=== PATIENT | male | born 1930 | race Caucasian/White ===

== ENCOUNTER 2017-04-09 16:18 | Inpatient (IN) | payer OTHER ==
[2017-04-09] MEDS ORDERED: SODIUM CHLORIDE 1,000 ML IV SCH (16:30)
--- NOTE | 2017-04-09 16:37 | PDOC ---
History of Present Illness - General Stated Complaint: POSS STROKE Time Seen by Provider: 04/09/17 16:21 History Source: Patient, EMS - History of Present Illness Initial Comments: 04/09/17 16:35 86 y.o. male with a PMH of HLD, NIDDM, TIA and CVA who was BIBA following acute onset of slurred speech and L sided facial droop. As per patient's daughter last known normal @ 10:00; patient's family noticed neurologic deficits @ 1300 and noted increased slurring of speech (@ baseline patient has slurred speech). BS 80's en route, patient administered 15 gm glucose PO by EMS. Patient endorses increased slurring of speech, but denies any AMS, chest pain, shortness of breath. Past History - Past Medical History Allergies/Adverse Reactions: Allergies Allergy/AdvReac Type Severity Reaction Status Date / Time No Known Allergies Allergy Verified 04/09/17 16:50 Home Medications: Ambulatory Orders Metformin HCl [Glucophage -] 500 mg PO DAILY 01/02/15 Atorvastatin Ca [Lipitor] 10 mg PO HS #30 tablet 01/03/15 Cyanocobalamin [Vitamin B12 -] 1,000 mcg PO DAILY #30 tablet 01/03/15 Unobtainable 04/09/17 Diabetes: Yes HTN: Yes - Suicide/Smoking/Psychosocial Hx Smoking History: Never smoked Have you smoked in the past 12 months: No Hx Alcohol Use: No Drug/Substance Use Hx: No Substance Use Type: None Hx Substance Use Treatment: No Review of Systems - Review of Systems Able to Perform ROS?: No *Physical Exam - Physical Exam General Appearance: Yes: Nourished HEENT: positive: EOMI, VIOLA Neck: positive: Supple Respiratory/Chest: positive: Lungs Clear, Normal Breath Sounds Cardiovascular: positive: S1, S2 Extremity: positive: Normal Capillary Refill, Normal Inspection Integumentary: positive: Normal Color, Dry, Warm Neurologic: positive: Fully Oriented, Alert, Facial Droop (L sided facial droop) ED Treatment Course - LABORATORY CBC & Chemistry Diagram: 04/09/17 16:46 04/10/17 00:45 - RADIOLOGY Radiology Studies Ordered: Category Date Time Status HEAD CT (STROKE) [CT] Stat CT Scan 04/09/17 16:21 Taken Medical Decision Making - Medical Decision Making 04/09/17 16:37 86 y.o. male with a PMH of HLD, NIDDM, CVA (residual L sided facial droop, slurred speech) presents to ED for increased slurring of speech. ED Stroke protocol ordered, no Code Guerrero as > 6 hours between last known normal and ED arrival. Head CT obtained to r/o acute ischemic process is negative. At presentation BS 67 --> 1 amp D50. Slurred speech improved with glucose. Na+ 157, slow correction with Dextrose and close Na monitoring. Likely etiology of patient's SiSx hypoglycemia and metabolic derangement vs. infectious. Case d/w Dr. Chowdhury (neurologist acute care nurse practitioner) - agrees with admission for further work-up given patient's RF for ischemic event. Patient signed out to Dr. Jus Gonzalez ( Resident) and Dr. Fraire (Attending) - likely disposition admission to inpatient medicine service. *DC/Admit/Observation/Transfer Diagnosis at time of Disposition: Hypernatremia - Referrals - Patient Instructions - Post Discharge Activity
[2017-04-09] MEDS ORDERED: DEXTROSE 50%-WATER 25 GM/50 ML DISP.SYRIN ONE (16:44)
[2017-04-09 16:58] LABS: BASO % 0.2 % (0-2.0); EOS % 3.3 % (0-4.5); HEMATOCRIT 34.3 % (35.4-49); HEMOGLOBIN 11.1 GM/dL (11.7-16.9); LYMPH % 14.6 % (8-40); MCH 32.5 pg (25.7-33.7); MCHC 32.3 g/dl (32.0-35.9); MEAN CELL VOLUME 100.7 fl (80-96); MEAN PLT VOLUME 12.5 fl (7.5-11.1); MONO % 4.9 % (3.8-10.2); PLATELET COUNT 131 K/MM3 (134-434); RDW 18.6 % (11.9-15.9); WHITE BLOOD COUNT 5.7 K/mm3 (4.0-10.0)
[2017-04-09 17:12] LABS: INR 1.06 (0.82-1.09)
--- NOTE | 2017-04-09 17:37 | PDOC ---
Attending Attestation - HPI HPI: 04/09/17 18:31 The patient is a 86 year old male with a significant PMH of hypertension, diabetes, and stroke with residual left facial droop who presents to the emergency department with speech slurring that began today. As per the daughter , the patient's has slow speech at baseline. The patient's last known well was 10AM today. The patient's daughter states she went to check up on the patient at approximately 1PM and noted the slurred speech at that time. Code Guerrero was not activated. The patient denies chest pain, shortness of breath, headache and dizziness. Denies fever, chills, nausea, vomit, diarrhea and constipation. Denies dysuria, frequency, urgency and hematuria. Allergies: NKA Past surgical history: None reported. Social history: No reported alcohol, drug, or cigarette. <Mulu Bryant - Last Filed: 04/09/17 18:31> - Resident Resident Name: Penelope Garcia - ED Attending Attestation I have performed the following: I have examined & evaluated the patient, The case was reviewed & discussed with the resident, I agree w/resident's findings & plan, Exceptions are as noted - Physicial Exam PE: 04/09/17 17:38 GENERAL: Awake, alert, in no acute distress. HEAD: No signs of trauma EYES: PERRLA, EOMI, sclera anicteric, conjunctiva clear ENT: Auricles normal inspection, hearing grossly normal, nares patent, NECK: Normal ROM, supple, LUNGS: Breath sounds equal, clear to auscultation bilaterally. No wheezes, and no crackles HEART: Regular rate and rhythm, normal S1 and S2, no murmurs, rubs or gallops ABDOMEN: Soft, nontender, normoactive bowel sounds. No guarding, no rebound. No masses EXTREMITIES: Normal range of motion, no edema. No clubbing or cyanosis. No cords, erythema, or tenderness NEUROLOGICAL: Cranial nerves II through XII intact, except chronic left facial droop (from previous stroke), 5/5 strength upper and lower extremities. Sensation intact throughout. No pronator drift. +slurring of speech. SKIN: Warm, Dry, normal turgor, no rashes or lesions noted. - Medical Decision Making 04/09/17 17:40 A portion of this note was written by my scribe, under my supervision. Vital Signs Temp Pulse Resp BP Pulse Ox 75 17 113/48 100 04/09/17 16:20 04/09/17 16:20 04/09/17 16:20 04/09/17 16:20 86 male with history of hypertension, diabetes, stroke with residual left facial droop presents to the emergency department for slurring of speech. According to the patient's daughter, the patient's baseline his slow speech. He was singing this morning. Last known well was 10 AM. Patient's daughter went to check up on the patient at around 1:15 PM, noted that he was slurring his speech more so came into the ED. Patient arrived at approximately 4 PM. Given that this was 6 hours after the initial event, Code Guerrero was not activated. However patient was sent to head CT. Head CT is negative. Patient's glucose was noted to be 67 and an amp of D50 was given. Patient's daughter at the bedside. Patient's slurry speech seemed to improve drastically with the glucose. This may potentially be hypoglycemia as the cause. We'll need to investigate for infectious or metabolic disease. Case was discussed with neurologist by Dr. Garcia. Agrees with plan to workup for potential stroke given the risk factors. 04/09/17 18:17 CBC, BMP 04/09/17 16:46 04/09/17 16:46 CMP Sodium 156 mmol/L (136-145) H 04/09/17 16:46 Potassium 4.5 mmol/L (3.5-5.1) 04/09/17 16:46 Chloride 123 mmol/L (98-107) H D 04/09/17 16:46 Carbon Dioxide 23 mmol/L (21-32) 04/09/17 16:46 Anion Gap 10 (8-16) 04/09/17 16:46 BUN 51 mg/dL (7-18) H D 04/09/17 16:46 Creatinine 3.5 mg/dL (0.7-1.3) H D 04/09/17 16:46 Creat Clearance w eGFR 16.69 (>60) 04/09/17 16:46 POC Glucometer 67.23672 UNITS (80-120) 04/09/17 16:39 Random Glucose 106 mg/dL (74-106) D 04/09/17 16:46 Calcium 8.0 mg/dL (8.5-10.1) L 04/09/17 16:46 Total Bilirubin 0.4 mg/dL (0.2-1.0) D 04/09/17 16:46 AST 43 U/L (15-37) H 04/09/17 16:46 ALT 27 U/L (12-78) 04/09/17 16:46 Alkaline Phosphatase 229 U/L (45-117) H D 04/09/17 16:46 Creatine Kinase 115 IU/L (39-308) 04/09/17 16:46 Troponin I < 0.02 ng/ml (0.00-0.05) D 04/09/17 16:46 Total Protein 7.2 g/dl (6.4-8.2) 04/09/17 16:46 Albumin 3.1 g/dl (3.4-5.0) L 04/09/17 16:46 Triglycerides 104 mg/dL (35-160) 04/09/17 16:46 Cholesterol 176 mg/dL (50-200) 04/09/17 16:46 Total LDL Cholesterol 108 mg/dL (5-100) H 04/09/17 16:46 HDL Cholesterol 49 mg/dL (40-60) D 04/09/17 16:46 Pt noted with acute renal failure and hypernatremia. 04/09/17 19:15 Pt attempted to get out of bed and fell (unwitnessed) Will need to obtain a repeat head CT. <Jose Luis Philippe - Last Filed: 04/09/17 19:15> Heart Score/ECG Review #1 ECG reviewed & interpreted by me at: 17:00 04/09/17 17:38 NSR 78, LVH, TWI II, III, avF, V4-V6, no std/priya, QTC 528 msec <Jose Luis Philippe - Last Filed: 04/09/17 19:15> NIH Stroke Scale - Last Known Well Date/Time & Onset Date Last Known Well: 04/09/17 Time Last Known Well: 10:00 - Initial Evaluation Level of consciousness: Alert Ask patient the month and their age: Both incorrect Ask patient to open & close eyes; make fist and let go: Obeys both correctly Best gaze (horizontal eye movement): Normal Visual field testing: No visual field loss Facial paresis (Show teeth/raise eyebrows/close eyes tight): Normal symmetrical movement Motor Function: Left Arm: Normal Motor Function: Right Arm: Normal (extends arm 90 (or 45) degrees for 10 seconds without drift Motor Function: Left Leg: Normal (extends leg 30 degrees for 5 seconds without drift) Motor Function: Right Leg: Normal (extends leg 30 degrees for 5 seconds without drift) Limb Ataxia: No ataxia Sensory(Use pinprick test arms,legs,trunk,face/side to side): Normal Best language (Describe picture, name items, read sentences): No Aphasia Dysarthria (read several words): Mild to moderate slurring of words Extinction and Inattention: No abnormality - Total Score NIH Stroke Scale Score: 3 <Jose Luis Philippe - Last Filed: 04/09/17 19:15>
[2017-04-09 18:07] LABS: ALBUMIN 3.1 g/dl (3.4-5.0); ANION GAP 10 (8-16); BILIRUBIN,TOTAL 0.4 mg/dL (0.2-1.0); BLOOD UREA NITROGEN 51 mg/dL (7-18); CHLORIDE 123 mmol/L (98-107); CO2 23 mmol/L (21-32); CREATININE 3.5 mg/dL (0.7-1.3); GLUCOSE,RANDOM 106 mg/dL (74-106); LDL CHOLESTEROL (ONLY SJRH) 108 mg/dL (5-100); POTASSIUM 4.5 mmol/L (3.5-5.1); SGOT/AST 43 U/L (15-37); SGPT/ALT 27 U/L (12-78); SODIUM 156 mmol/L (136-145); TOT PROT 7.2 g/dl (6.4-8.2); TRIGLYCERIDES 104 mg/dL (35-160)
[2017-04-09 18:11] LABS: ALK PHOS 229 U/L (45-117); CHOLESTEROL 176 mg/dL (50-200); HDL CHOLESTEROL 49 mg/dL (40-60)
[2017-04-09] MEDS ORDERED: DEXTROSE 5%-WATER - 1,000 ML IV SCH ×2 (18:45→19:00)
[2017-04-09 19:55] LABS: URINE APPEARANCE CLEAR; URINE BILIRUBIN NEGATIVE (NEGATIVE); URINE BLOOD NEGATIVE (NEGATIVE); URINE COLOR LTYELLOW; URINE GLUCOSE (UA) NEGATIVE (NEGATIVE); URINE KETONE NEGATIVE (NEGATIVE); URINE LEUK ESTERASE NEGATIVE (NEGATIVE); URINE NITRITE NEGATIVE (NEGATIVE); URINE PROTEIN NEGATIVE (NEGATIVE); URINE UROBILINOGEN NEGATIVE mg/dL (0.2-1.0)
--- NOTE | 2017-04-09 23:25 | HP ---
CHIEF COMPLAINT: AMS. Family noted facial droop PCP: Yessi HISTORY OF PRESENT ILLNESS: Pt is an 86 y/o M with PMH NIDDM, TIA with multiple hospital visits for possible stroke who presented to ED BIBA accompanied by family because fam noticed facial droop and slurred speech. Per records, last normal was 10am, fam noticed droop at 16:00. Pt is awake alert and oriented only to name. Per nurse, family gave conflicting reports regarding pt's baseline mental status. Pt cannot give history. In ED pt having numerous episodes of diarrhea. Note pt had a fall and had repeat head CT neg ER course was notable for: (1) Hb 11, plt 131, Na 156, BUN 51, Solutions Consultant 3.5 (2)Head CT neg (3) Recent Travel: denies PAST MEDICAL HISTORY: NIDDM, HLD, TIA PAST SURGICAL HISTORY: Social History: Smoking: neg Alcohol: neg Drugs: neg Family History: Allergies No Known Allergies Allergy (Verified 04/09/17 16:50) HOME MEDICATIONS: Home Medications Medication Instructions Recorded Metformin HCl [Glucophage -] 500 mg PO DAILY 01/02/15 Atorvastatin Ca [Lipitor] 10 mg PO HS #30 tablet 01/03/15 Cyanocobalamin [Vitamin B12 -] 1,000 mcg PO DAILY #30 tablet 01/03/15 Unobtainable 04/09/17 REVIEW OF SYSTEMS unable to obtain PHYSICAL EXAMINATION Vital Signs - 24 hr 04/09/17 04/09/17 04/09/17 16:20 19:21 19:36 Temperature 94.7 F L Pulse Rate 75 Respiratory 17 18 Rate Blood Pressure 113/48 Blood Pressure 145/71 [Right Arm] O2 Sat by Pulse 100 Oximetry (%) Limited exam. Pt uncooperative. GENERAL: Awake, alert, and oriented to person, in no acute distress. HEAD: Normal with no signs of trauma. EYES: Pupils equal, round and reactive to light, extraocular movements intact, sclera anicteric, conjunctiva clear. No lid lag. EARS, NOSE, THROAT: oropharynx clear without exudates. Moist mucous membranes. NECK: Normal range of motion, supple without lymphadenopathy, JVD, or masses. LUNGS: Breath sounds equal, clear to auscultation bilaterally. No wheezes, and no crackles. No accessory muscle use. HEART: Regular rate and rhythm, normal S1 and S2 without murmur, rub or gallop. ABDOMEN: Soft, nontender, not distended, normoactive bowel sounds, no guarding, no rebound, no masses. No hepatomegaly or splenomegaly. MUSCULOSKELETAL: Normal range of motion at all joints. No bony deformities or tenderness. No CVA tenderness. UPPER EXTREMITIES: 2+ pulses, warm, well-perfused. No cyanosis. No clubbing. No peripheral edema. LOWER EXTREMITIES: 1+ pulses b/l, warm, well-perfused. No calf tenderness. No peripheral edema. NEUROLOGICAL: unable to assess PSYCHIATRIC: unable to assess SKIN: Warm, dry, normal turgor, no rashes or lesions noted, normal capillary refill. Laboratory Results - last 24 hr 04/09/17 04/09/17 04/09/17 16:39 16:46 16:46 WBC 5.7 RBC 3.40 L Hgb 11.1 L Hct 34.3 L MCV 100.7 H MCH 32.5 D MCHC 32.3 RDW 18.6 H D Plt Count 131 L D MPV 12.5 H D Neutrophils % 77.0 D Lymphocytes % 14.6 D Monocytes % 4.9 Eosinophils % 3.3 Basophils % 0.2 PT with INR 12.00 H INR 1.06 Sodium Potassium Chloride Carbon Dioxide Anion Gap BUN Creatinine Creat Clearance w eGFR POC Glucometer 67.62812 Random Glucose Calcium Total Bilirubin AST ALT Alkaline Phosphatase Creatine Kinase Troponin I Total Protein Albumin Triglycerides Cholesterol Total LDL Cholesterol HDL Cholesterol Urine Color Urine Appearance Urine pH Ur Specific [place] Urine Protein Urine Glucose (UA) Urine Ketones Urine Blood Urine Nitrite Urine Bilirubin Urine Urobilinogen Ur Leukocyte Esterase Blood Type Antibody Screen 04/09/17 04/09/17 04/09/17 16:46 16:46 19:30 WBC RBC Hgb Hct MCV MCH MCHC RDW Plt Count MPV Neutrophils % Lymphocytes % Monocytes % Eosinophils % Basophils % PT with INR INR Sodium 156 H Potassium 4.5 Chloride 123 H D Carbon Dioxide 23 Anion Gap 10 BUN 51 H D Creatinine 3.5 H D Creat Clearance w eGFR 16.69 POC Glucometer Random Glucose 106 D Calcium 8.0 L Total Bilirubin 0.4 D AST 43 H ALT 27 Alkaline Phosphatase 229 H D Creatine Kinase 115 Troponin I < 0.02 D Total Protein 7.2 Albumin 3.1 L Triglycerides 104 Cholesterol 176 Total LDL Cholesterol 108 H HDL Cholesterol 49 D Urine Color Ltyellow Urine Appearance Clear Urine pH 6.0 Ur Specific [place] 1.009 Urine Protein Negative Urine Glucose (UA) Negative Urine Ketones Negative Urine Blood Negative Urine Nitrite Negative Urine Bilirubin Negative Urine Urobilinogen Negative Ur Leukocyte Esterase Negative Blood Type Cancelled Antibody Screen Cancelled ASSESSMENT/PLAN: Pt is an 86 y/o M w/ PMH TIA, NIDDM, HLD who was BIBA accompanied by fam because of facial droop. #r/o CVA -head ct neg -AMS -no droop noted on physical exam. limited exam as pt is uncooperative and does not follow commands -speech and swallow. If pt is able to swallow, give ASA 325 and resume Lipitor -Neuro consult Luciana -echo for baseline #SILVESTRE -auctioneer automobile 3.5 (Baseline 1.2) -?CKD #hypernatremia -Na 156 -D5 1/2 NS -Repeat BMP -U lytes -SPEP, UPEP #Diarrhea -stool Cx -ova and parasites -C. diff tox & ag #fatty liver -noted on abd US -TG 104 -no abd pain -INR 1.06 -transaminitis #FEN -D5 1/2NS -hypernatremia -NPO until speech and swallow #PPx -Hep Sub Q HOLD PO meds until speech and swallow eval #Dispo -admit to med/surg Rojelio Martin MD PGY-1 IM Visit type - Emergency Visit Emergency Visit: Yes ED Registration Date: 04/10/17 Care time: The patient presented to the Emergency Department on the above date and was hospitalized for further evaluation of their emergent condition. - New Patient This patient is new to me today: Yes Date on this admission: 04/10/17 - Critical Care Critical Care patient: No
[2017-04-10 02:16] LABS: ANION GAP 13 (8-16); BLOOD UREA NITROGEN 55 mg/dL (7-18); CALCIUM 8.1 mg/dL (8.5-10.1); CHLORIDE 122 mmol/L (98-107); CO2 23 mmol/L (21-32); CREATININE 3.4 mg/dL (0.7-1.3); GLUCOSE,RANDOM 82 mg/dL (74-106); POTASSIUM 4.6 mmol/L (3.5-5.1); SODIUM 158 mmol/L (136-145)
[2017-04-10] MEDS ORDERED: ASPIRIN 325 MG TABLET ONE (02:19)
[2017-04-10] MEDS: ASPIRIN 325 MG TABLET PO SCH ×2 (02:24→11:44)
[2017-04-10] MEDS ORDERED: HEPARIN NA (PORCINE) 5,000 UNITS/ML 1ML VIAL ONE (07:47)
[2017-04-10] MEDS: HEPARIN NA (PORCINE) 5,000 UNITS/ML 1ML VIAL SQ SCH ×3 (07:53→21:18)
--- NOTE | 2017-04-10 08:10 | PN ---
Teaching Attending Note Name of Resident: Rojelio Martin ATTENDING PHYSICIAN STATEMENT I saw and evaluated the patient. I reviewed the resident's note and discussed the case with the resident. I agree with the resident's findings and plan as documented. SUBJECTIVE: Patient is a poor historian secondary to slurred speech, as per son patient has had depressed mood for 10+ years and has had facial droop and slurred speech for over 1+ month. No prior evaluation for CVA. Patient has not been mobile except to go to the bathroom with assistance since prior discharge one year ago. as per son patient has poor appetite. 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 Endocrine Diabetes Mellitus OBJECTIVE: GEN: Alert and oriented x2, temporal wasting HEENT: PERRLA, EOMI, MMM,left facial droop, edentulous CVS: RRR, S1, S2 LUNGS: CTA, no wheezing Abd: soft, BS+, no guarding, no mass Ext:No edema CBCD WBC 5.7 K/mm3 (4.0-10.0) 04/09/17 16:46 RBC 3.40 M/mm3 (4.00-5.60) L 04/09/17 16:46 Hgb 11.1 GM/dL (11.7-16.9) L 04/09/17 16:46 Hct 34.3 % (35.4-49) L 04/09/17 16:46 MCV 100.7 fl (80-96) H 04/09/17 16:46 MCHC 32.3 g/dl (32.0-35.9) 04/09/17 16:46 RDW 18.6 % (11.9-15.9) H D 04/09/17 16:46 Plt Count 131 K/MM3 (134-434) L D 04/09/17 16:46 MPV 12.5 fl (7.5-11.1) H D 04/09/17 16:46 CMP Sodium 158 mmol/L (136-145) H 04/10/17 00:45 Potassium 4.6 mmol/L (3.5-5.1) 04/10/17 00:45 Chloride 122 mmol/L (98-107) H 04/10/17 00:45 Carbon Dioxide 23 mmol/L (21-32) 04/10/17 00:45 Anion Gap 13 (8-16) 04/10/17 00:45 BUN 55 mg/dL (7-18) H 04/10/17 00:45 Creatinine 3.4 mg/dL (0.7-1.3) H 04/10/17 00:45 Creat Clearance w eGFR 16.69 (>60) 04/09/17 16:46 Calcium 8.1 mg/dL (8.5-10.1) L 04/10/17 00:45 Total Bilirubin 0.4 mg/dL (0.2-1.0) D 04/09/17 16:46 AST 43 U/L (15-37) H 04/09/17 16:46 ALT 27 U/L (12-78) 04/09/17 16:46 Alkaline Phosphatase 229 U/L (45-117) H D 04/09/17 16:46 Total Protein 7.2 g/dl (6.4-8.2) 04/09/17 16:46 Albumin 3.1 g/dl (3.4-5.0) L 04/09/17 16:46 ASSESSMENT AND PLAN: CVA vs TIA- stroke workup, ASA 325, ECHO, Carotid doppler, continue statin therapy. NIHSS 7, lipid panel. Dehydration with hypernatremia - D51/2 NS and trend BMP q6h.SILVESTRE stage 3 get urine electrolytes, UPEP, SPEP, calculate FeNA, Consider renal USG and nephrology consult if no improvement with hydration. Patient reported to have multiple episodes of diarrhea r/o C diff , stool studies and , contact precautions.Malnutrition get nutrition consult. Speech and swallow evaluation. DVT prophylaxis Problem List - Problems (1) Diarrhea Code(s): R19.7 - DIARRHEA, UNSPECIFIED (2) Hypernatremia Code(s): E87.0 - HYPEROSMOLALITY AND HYPERNATREMIA (3) SILVESTRE (acute kidney injury) Code(s): N17.9 - ACUTE KIDNEY FAILURE, UNSPECIFIED (4) Diabetes Code(s): E11.9 - TYPE 2 DIABETES MELLITUS WITHOUT COMPLICATIONS Qualifiers: Diabetes mellitus type: type 1 Diabetes mellitus complication status: with hyperglycemia Qualified Code(s): E10.65 - Type 1 diabetes mellitus with hyperglycemia
--- NOTE | 2017-04-10 09:12 | PDOC ---
NIH Stroke Scale - Last Known Well Date/Time & Onset Date Last Known Well: 04/09/17 Time Last Known Well: 10:00 - Initial Evaluation Level of consciousness: Alert Ask patient the month and their age: Answers both correctly Ask patient to open & close eyes; make fist and let go: Obeys both correctly Best gaze (horizontal eye movement): Normal Visual field testing: No visual field loss Facial paresis (Show teeth/raise eyebrows/close eyes tight): Minor paralysis ( flattened nasolabial fold, asymmetry on smiling) Motor Function: Left Arm: Normal Motor Function: Right Arm: Normal (extends arm 90 (or 45) degrees for 10 seconds without drift Motor Function: Left Leg: Normal (extends leg 30 degrees for 5 seconds without drift) Motor Function: Right Leg: Normal (extends leg 30 degrees for 5 seconds without drift) Limb Ataxia: No ataxia Sensory(Use pinprick test arms,legs,trunk,face/side to side): Normal Best language (Describe picture, name items, read sentences): No Aphasia Dysarthria (read several words): Normal articulation Extinction and Inattention: No abnormality - Total Score NIH Stroke Scale Score: 1
--- NOTE | 2017-04-10 09:47 | EKG ---
Test Reason : Blood Pressure : / mmHG Vent. Rate : 078 BPM Atrial Rate : 078 BPM P-R Int : 106 ms QRS Dur : 086 ms QT Int : 464 ms P-R-T Axes : 075 045 -71 degrees QTc Int : 528 ms POOR DATA QUALITY, INTERPRETATION MAY BE ADVERSELY AFFECTED SINUS RHYTHM WITH SHORT OR MODERATE VOLTAGE CRITERIA FOR LVH, MAY BE NORMAL VARIANT ABNORMAL ECG WHEN COMPARED WITH ECG OF 11-APR-2015 15:10, NO SIGNIFICANT CHANGE WAS FOUND Confirmed by DOT MAURICE MD ([id number]) on 04/10/2017 9:46:45 AM Referred By: Confirmed By:DOT MAURICE MD
[2017-04-10 10:14] LABS: BASO % 0.4 % (0-2.0); EOS % 4.6 % (0-4.5); HEMATOCRIT 32.5 % (35.4-49); HEMOGLOBIN 10.1 GM/dL (11.7-16.9); LYMPH % 22.3 % (8-40); MCH 31.5 pg (25.7-33.7); MCHC 31.2 g/dl (32.0-35.9); MEAN CELL VOLUME 100.8 fl (80-96); MONO % 7.2 % (3.8-10.2); NEUT % 65.5 % (42.8-82.8); PLATELET COUNT 98 K/MM3 (134-434); RBC 3.22 M/mm3 (4.00-5.60); RDW 18.5 % (11.9-15.9); WHITE BLOOD COUNT 3.1 K/mm3 (4.0-10.0)
[2017-04-10 10:29] LABS: ALBUMIN 2.8 g/dl (3.4-5.0); ANION GAP 8 (8-16); BILIRUBIN,TOTAL 0.6 mg/dL (0.2-1.0); BLOOD UREA NITROGEN 54 mg/dL (7-18); CALCIUM 7.8 mg/dL (8.5-10.1); CHLORIDE 126 mmol/L (98-107); CO2 25 mmol/L (21-32); CREATININE 3.4 mg/dL (0.7-1.3); GLUCOSE,RANDOM 76 mg/dL (74-106); PHOSPHOROUS 4.4 mg/dL (2.5-4.9); POTASSIUM 4.5 mmol/L (3.5-5.1); SGOT/AST 37 U/L (15-37); SGPT/ALT 24 U/L (12-78); SODIUM 159 mmol/L (136-145); TOT PROT 6.7 g/dl (6.4-8.2)
[2017-04-10 10:30] LABS: ALK PHOS 195 U/L (45-117)
--- NOTE | 2017-04-10 10:41 | CONSULT ---
Admitting History and Physical - Primary Care Physician PCP: Kenisha Dickson - Admission History of Present Illness: Pt is an 86 y/o M w/ PMH TIA, NIDDM, HLD who was BIBA accompanied by family because of facial droop. Family tells me pt's speech was not clear and has not improved since yesterday. They report he is confused at baseline but verbal. He coughs at times while eating and drinking but has not had Pneumonia, per family. Head CT x 2 (-). Seen by me December 2014, for TIA, that spontaneously recovered. 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 History - Admission Reason For Visit: AMS DIARRHEA - Diagnostics X-ray: Report Reviewed CT Scan: Report Reviewed - General Mental Status: Awake and Alert, Able to Follow Commands, Forgetful, Confused Attention: Distractible Ability to Follow Directions: Fair Head/Neck Control: WFL - Hearing Hearing: Impaired Speech Evaluation - Communication Primary Language: HUNGARIAN Communication: Yes: Simple Responses - Speech Production Intelligibility: Yes: Mildly Impaired - Speech Characteristics Voice Loudness: Mildly Soft/Quiet Voice Pitch: Yes: Normal Speech Pattern: Impaired Speech Clarity: < 50% Articulation: Yes: Imprecise Rate of Speech: Too Fast - Swallow Evaluation/Bedside Assessment Current Nutritional Intake: NPO Oral Secretions: Yes: WFL Dentition: Yes: Edentulous Facial Symmetry at Rest: Symmetrical Facial Symmetry on Retraction: Symmetrical Facial Movement: Controlled Against Resistance Opening: Normal Against Resistance Closing: Normal Pucker Lips: Normal Smile: Normal Lingual Movement: Normal, Symmetric Lingual Movement Characteristics: Normal Laryngeal Movement: Labored,delay initiation Rate of Intake: Slow/Holding Bolus Size: Large Labial Seal: WFL Oral Prep Time: Increased A-P Transit: Impaired Timing of Swallow: Delayed Coughing/Throat Clear: No Change in Voice: No Recommendations - Speech Evaluation, Impression/Plan Impression: Rapid, imprecise articulation with impaired intelligibilty. Not oriented. Swallow is delayed in onset with intermittent aspiration suspected. - Dysphagia Impressions/Plan Swallowing Skills: Impaired Dysphagia Impressions: Mild Impairment *Silent aspiration: cannot be R/O at bedside Dysphagia Treatment Plan: Chin Tuck/Down, Safe Rate, 1/2 tsp. at a time, Elevate HOB during feed Recommendations: Modified Barium Swallow (if cough, congestion, fever) - Recommendations Diet Consistency: Dysphagia Pureed Medication Administration: Crushed with applesauce Liquids: [place] Thick Supplement: Magic Cup
--- NOTE | 2017-04-10 12:40 | PN ---
Progress Note, Physician Chief Complaint: patient seen in and examined he is awake but speech not able to understand what he says - Current Medication List Current Medications: Active Medications Aspirin (Asa -) 325 mg PO DAILY [facility] Last Admin: 04/10/17 11:44 Dose: 325 mg Heparin Sodium (Porcine) (Heparin -) 5,000 unit SQ TID [facility] Last Admin: 04/10/17 07:53 Dose: 5,000 unit Sodium Chloride (Normal Saline -) 1,000 mls @ 42 mls/hr IV ASDIR [facility] Last Admin: 04/10/17 02:24 Dose: 42 mls/hr Dextrose (D5w -) 1,000 mls @ 100 mls/hr IV .Q10H [facility] - Objective Vital Signs: Vital Signs Temperature 94.7 F L 04/09/17 19:36 Pulse Rate 81 04/10/17 07:06 Respiratory Rate 16 04/10/17 07:06 Blood Pressure 137/67 04/10/17 07:06 O2 Sat by Pulse Oximetry (%) 100 04/10/17 07:06 Constitutional: Yes: Calm Cardiovascular: Yes: Regular Rate and Rhythm, S1, S2 Respiratory: Yes: CTA Bilaterally Gastrointestinal: Yes: Normal Bowel Sounds, Soft Edema: No Neurological: Yes: Confusion, Facial Droop, Other (not able to understand his speech) Labs: CBC, BMP 04/10/17 09:49 04/10/17 09:49 INR, PTT INR 1.06 (0.82-1.09) 04/09/17 16:46 Problem List - Problems (1) Hypernatremia Assessment/Plan: renal evaluation amanda fluids secondary to poor po intake and diarrhea Code(s): E87.0 - HYPEROSMOLALITY AND HYPERNATREMIA (2) SILVESTRE (acute kidney injury) Assessment/Plan: renal sono blader sono urine lytes ivf maybe seconary to decrease po intake Code(s): N17.9 - ACUTE KIDNEY FAILURE, UNSPECIFIED (3) Slurred speech Assessment/Plan: MRI w/o contrast given renal function is elevated dvt ppx tomy svetlana eval- MBS carotid doppler and echo done neur eval lipid panel asa and statin PT eval Code(s): R47.81 - SLURRED SPEECH (4) Diarrhea Assessment/Plan: stool sent Code(s): R19.7 - DIARRHEA, UNSPECIFIED
--- NOTE | 2017-04-10 14:16 | CONSULT ---
Consult Consult Specialty:: nephrology Referred by:: Dr. Elmore Reason for Consultation:: SILVESTRE/Hypernatremia - History of Present Illness Chief Complaint: slurred speech History of Present Illness: 86M PMH of hypertension, HLD, diabetes, multiple hospital visits for TIA's and stroke with residual left facial droop who presents to the emergency department with speech slurring that began today. as per the chart the daughter endorses that the patient has slow speech at baseline. Nephrolgoy called to avaluate patient since he was found to have SILVESTRE and hypernatremia. ROS could not be done patient has incomprehensible speech and dementia. 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 Home Medications - Allergies Allergies/Adverse Reactions: Allergies Allergy/AdvReac Type Severity Reaction Status Date / Time No Known Allergies Allergy Verified 04/09/17 16:50 - Home Medications Home Medications: Ambulatory Orders Metformin HCl [Glucophage -] 500 mg PO DAILY 01/02/15 Atorvastatin Ca [Lipitor] 10 mg PO HS #30 tablet 01/03/15 Cyanocobalamin [Vitamin B12 -] 1,000 mcg PO DAILY #30 tablet 01/03/15 Unobtainable 04/09/17 Family Disease History - Family Disease History Family History: Unable to Obtain Family Disease History: Other: Brother (asthma) Review of Systems Unable to obtain ROS, reason: incomprehensible speech Findings/Remarks: Dementia - Review of Systems Gastrointestinal: reports: Diarrhea Physical Exam Vital Signs: Vital Signs Temperature 94.7 F L 04/09/17 19:36 Pulse Rate 81 04/10/17 07:06 Respiratory Rate 16 04/10/17 07:06 Blood Pressure 137/67 04/10/17 07:06 O2 Sat by Pulse Oximetry (%) 100 04/10/17 07:06 Constitutional: Yes: No Distress, Calm Eyes: Yes: EOM Intact HENT: Yes: Atraumatic Neck: Yes: Supple Cardiovascular: Yes: Regular Rate and Rhythm Respiratory: Yes: CTA Bilaterally Gastrointestinal: Yes: Soft Edema: No Neurological: Yes: Other (incomprehensible speech) Labs: CBC, BMP 04/10/17 09:49 04/10/17 09:49 Imaging - Results Cat Scan: Report Reviewed, Image Reviewed Ultrasound: Report Reviewed, Image Reviewed Assessment/Plan 86M with history of HTN HLD dementia and multiple TIAs presents to the hospital with facial droop found to have hypernatremia and SILVESTRE Problem list: HTN HLD DM Dementia Hypernatremia Acute kidney injury/Acute renal Failure Bilateral Hydronephrosis leukopenia Plan: Admit to medical service Stop normal saline start 1/2NS @ 100ml/hr renal/bladder US showed moderate bilateral hydronephrosis without stone send urine electrolytes send urine creatinine Serum and urine osmolality Stroke/TIA work up per primary team and neurology trend creatinine monitor BMP repeat BMP in 4 hours after starting 1/2 NS Case discussed with attending Dr. Hua
--- NOTE | 2017-04-10 16:06 | PN ---
Teaching Attending Note Name of Resident: Sha Campbell (Nephrology) ATTENDING PHYSICIAN STATEMENT I saw and evaluated the patient. I reviewed the resident's note and discussed the case with the resident. I agree with the resident's findings and plan as documented. Nephrology Pt is an 86 year old male with pmhx of DM, chol, CVA and DM who presented to the ER with slurred speech. I was called to evaluate him for silvestre and hypernatremia. He is accompanied with his daughter who assisted with history. Symptoms began today. He does not have history of CKD. He has been urinating. She says that his diet has been good. pmhc tia cva dm chol familhx hx non contrib ros pt is having difficulty speaking nkda social hx neg Current Medications Generic Name Dose Route Start Last Admin Trade Name Freq PRN Reason Stop Dose Admin Aspirin 325 mg 04/09/17 21:30 04/10/17 11:44 Asa - PO 325 mg DAILY [facility] Administration Heparin Sodium (Porcine) 5,000 unit 04/10/17 06:00 04/10/17 07:53 Heparin - SQ 5,000 unit TID [facility] Administration Sodium Chloride 1,000 mls @ 100 mls/hr 04/10/17 14:45 1/2 Normal Saline IV ASDIR [facility] Last Vital Signs Temp Pulse Resp BP Pulse Ox 94.7 F L 81 16 137/67 100 04/09/17 19:36 04/10/17 07:06 04/10/17 07:06 04/10/17 07:06 04/10/17 07:06 Laboratory Tests 04/09/17 04/09/17 04/09/17 16:46 16:46 19:30 Hgb 11.1 L Sodium 156 H Potassium Chloride Carbon Dioxide Anion Gap BUN Creatinine Urine Protein Negative Urine Blood Negative [place] M-Jim 04/10/17 04/10/17 04/10/17 00:45 00:45 09:49 Hgb 10.1 L Sodium 158 H Potassium 4.6 Chloride 122 H Carbon Dioxide 23 Anion Gap 13 BUN 55 H Creatinine 3.4 H Urine Protein Urine Blood [place] M-Jim Pending 04/10/17 09:49 Hgb Sodium 159 H Potassium Chloride Carbon Dioxide Anion Gap BUN 54 H Creatinine 3.4 H Urine Protein Urine Blood [place] M-Jim cardio s1s2 reg pulm clear Gi soft bladder distention ext neg edema neuro slurred speech Impression 1. SILVESTRE 2. hypernatremia 3. TIA 4. CVA 5. DM 6. chol Plan - ordered bladder ultrasound after examining pt and he was found to have obstruction with hydro - place godinez - change fluids from ns to / ns - monitor bmp - will follow - SILVESTRE likely in part from obstruction - uroogy eval - consider flomax - hold metformin until renal function stabilizes Dr Hua
[2017-04-10] MEDS: SODIUM CHLORIDE 0.45% 1,000 ML IV SCH ×2 (17:11→21:27)
[2017-04-10 17:18] LABS: URINE APPEARANCE CLEAR; URINE BILIRUBIN NEGATIVE (NEGATIVE); URINE BLOOD 1+ (NEGATIVE); URINE COLOR YELLOW; URINE GLUCOSE (UA) NEGATIVE (NEGATIVE); URINE KETONE NEGATIVE (NEGATIVE); URINE LEUK ESTERASE NEGATIVE (NEGATIVE); URINE NITRITE NEGATIVE (NEGATIVE); URINE PROTEIN NEGATIVE (NEGATIVE); URINE UROBILINOGEN NEGATIVE mg/dL (0.2-1.0)
--- NOTE | 2017-04-10 22:10 | CON.NEURO ---
Consult Consult Specialty:: NEUROLOGY [place] [facility] - History of Present Illness History of Present Illness: Pt is an 86 y/o M with PMH NIDDM, TIA with multiple hospital visits for possible stroke who presented to ED BIBA accompanied by family because fam noticed facial droop and slurred speech. Per records, last normal was 10am, fam noticed droop at 16:00 yesterday.. Pt is awake alert and oriented only to name. Per nurse, family gave conflicting reports regarding pt's baseline mental status but nursing staff tells me he is demented and "confused" at baseline. Pt. is unable to relate history, only groans to questions, is awake, alert. 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 Home Medications - Allergies Allergies/Adverse Reactions: Allergies Allergy/AdvReac Type Severity Reaction Status Date / Time No Known Allergies Allergy Verified 04/09/17 16:50 - Home Medications Home Medications: Ambulatory Orders Metformin HCl [Glucophage -] 500 mg PO DAILY 01/02/15 Atorvastatin Ca [Lipitor] 10 mg PO HS #30 tablet 01/03/15 Cyanocobalamin [Vitamin B12 -] 1,000 mcg PO DAILY #30 tablet 01/03/15 Unobtainable 04/09/17 Family Disease History - Family Disease History Family Disease History: Other: Brother (asthma) Physical Exam-Neuro Vital Signs: Vital Signs Temperature 98.4 F 04/10/17 19:06 Pulse Rate 75 04/10/17 19:06 Respiratory Rate 18 04/10/17 19:06 Blood Pressure 140/87 04/10/17 19:06 O2 Sat by Pulse Oximetry (%) 100 04/10/17 09:00 Labs: CBC, BMP 04/10/17 09:49 INR, PTT INR 1.06 (0.82-1.09) 04/09/17 16:46 - Neuro Exam Level Of Consciousness: Yes: Alert (Minimally verbal, gives "yes/no" answers, mostly groans, follows 1 step commands only) Eyes: Yes: VIOLA (Vision-unsure as to his visual acuity, responds to threat in all visual [place]) Mini Mental Exam: Not testable Cranial Nerves II-XII Intact: No (diminished left NLF which is said to be new) DTR's: 0 Left Brachioradialis, 0 Right Brachioradialis, 1+ Left Bicep, 1+ Right Bicep, 1+ Left Tricep, 1+ Right Tricep, 1+ Left Achilles, 1+ Right Achilles ( Increased tone in all 4 extremities legs more than arms-spasticity.) Babinski: Present (Bilateral upgoing toes) Response to pain prick: Normal (Withdraws all 4 extremities to pain) Motor Strength: 3/5: Left Leg, Right Leg, 4/5: Right Arm, Left Arm Gait: Other (Not testable) Imaging - Results Cat Scan: Report Reviewed (No acute changes noted.) Assessment/Plan Pt. with dementia, CVAs in past, now with reportedly new left central facial. It is difficult to tell which ones of his neurologic deficits are new which ones old. Would image with MRI brain as planned.Cont. current antiplatelet agent. Further decison after MRI brain.
[2017-04-10 22:49] LABS: ANION GAP 7 (8-16); BLOOD UREA NITROGEN 57 mg/dL (7-18); CALCIUM 7.7 mg/dL (8.5-10.1); CHLORIDE 128 mmol/L (98-107); CO2 24 mmol/L (21-32); CREATININE 3.3 mg/dL (0.7-1.3); GLUCOSE,RANDOM 77 mg/dL (74-106); POTASSIUM 4.1 mmol/L (3.5-5.1); SODIUM 159 mmol/L (136-145)
[2017-04-11 02:09] VITALS: BMI 25.8
[2017-04-11] MEDS ORDERED: FLU VACCINE QUAD 60 MCG/0.5 ML (MDV 17-18) IM ONE (02:12)
--- NOTE | 2017-04-11 06:17 | HOSP ---
Subjective - Review of Symptoms Events since last encounter: Hospitalist Encounter Notified by primary RN, that there is hematuria in the godinez tubing Arrived to bedside, patient is alert, with slurred speech- baseline, gross hematuria noted in tubing and drainage bag. A This is a 86 y/o man with a PMHx of NIDDM, TIA with multiple hospital visits for possible stroke who presented to ED BIBA accompanied by family because fam noticed facial droop and slurred speech. Cr 3.5 Bladder US- obstruction with hydro SILVESTRE likely due to obstruction Nephrology is following P Hold Heparin for DVT PPI Appreciate Urology consult Start Flomax 0.4mg, per Nephrology recommendation RN to inform PMD of overnight events Genitourinary: Yes: Hematuria Physical Examination Vital Signs: Vital Signs Temperature 97.8 F 04/10/17 20:00 Pulse Rate 81 04/10/17 20:00 Respiratory Rate 18 04/10/17 20:00 Blood Pressure 157/87 04/10/17 20:00 O2 Sat by Pulse Oximetry (%) 100 04/10/17 20:00 Constitutional: Yes: Well Nourished, No Distress, Calm Eyes: Yes: WNL, Conjunctiva Clear, PERRL HENT: Yes: WNL, Atraumatic, Normocephalic Neck: Yes: WNL, Supple, Trachea Midline Cardiovascular: Yes: WNL, Regular Rate and Rhythm, S1, S2 Respiratory: Yes: WNL, Regular, CTA Bilaterally Gastrointestinal: Yes: WNL, Normal Bowel Sounds, Soft Renal/: Yes: Godinez Present, Hematuria Breast(s): Yes: WNL Musculoskeletal: Yes: WNL Extremities: Yes: WNL Edema: No Peripheral Pulses WNL: Yes Neurological: Yes: Alert, Dysarthria Psychiatric: Yes: Alert Labs: CBC, BMP 04/10/17 09:49 04/10/17 20:55 Laboratory Results - last 24 hr 04/09/17 04/10/17 04/10/17 00:30 09:49 09:49 WBC 3.1 L D RBC 3.22 L Hgb 10.1 L Hct 32.5 L MCV 100.8 H MCH 31.5 MCHC 31.2 L RDW 18.5 H Plt Count 98 L D MPV 12.0 H Neutrophils % 65.5 Lymphocytes % 22.3 D Monocytes % 7.2 Eosinophils % 4.6 H Basophils % 0.4 Sodium 159 H Potassium 4.5 Chloride 126 H Carbon Dioxide 25 Anion Gap 8 BUN 54 H Creatinine 3.4 H Creat Clearance w eGFR 17.26 POC Glucometer Random Glucose 76 Calcium 7.8 L Phosphorus 4.4 D Total Bilirubin 0.6 D AST 37 ALT 24 Alkaline Phosphatase 195 H Total Protein 6.7 Albumin 2.8 L Urine Color Urine Appearance Urine pH Ur Specific [place] Urine Protein Urine Glucose (UA) Urine Ketones Urine Blood Urine Nitrite Urine Bilirubin Urine Urobilinogen Ur Leukocyte Esterase Urine Osmolality Stool O & P Wet [place] Canc[place] O & P Permanent Slide Cancelled 04/10/17 04/10/17 04/10/17 12:12 16:30 17:00 WBC RBC Hgb Hct MCV MCH MCHC RDW Plt Count MPV Neutrophils % Lymphocytes % Monocytes % Eosinophils % Basophils % Sodium Potassium Chloride Carbon Dioxide Anion Gap BUN Creatinine Creat Clearance w eGFR POC Glucometer [id number] Random Glucose Calcium Phosphorus Total Bilirubin AST ALT Alkaline Phosphatase Total Protein Albumin Urine Color Yellow Urine Appearance Clear Urine pH 5.0 Ur Specific [place] 1.011 Urine Protein Negative Urine Glucose (UA) Negative Urine Ketones Negative Urine Blood 1+ H Urine Nitrite Negative Urine Bilirubin Negative Urine Urobilinogen Negative Ur Leukocyte Esterase Negative Urine Osmolality 334 Stool O & P Wet [place] O & P Permanent Slide 04/10/17 04/10/17 20:55 21:21 WBC RBC Hgb Hct MCV MCH MCHC RDW Plt Count MPV Neutrophils % Lymphocytes % Monocytes % Eosinophils % Basophils % Sodium 159 H Potassium 4.1 Chloride 128 H Carbon Dioxide 24 Anion Gap 7 L BUN 57 H Creatinine 3.3 H Creat Clearance w eGFR POC Glucometer 77 Random Glucose 77 Calcium 7.7 L Phosphorus Total Bilirubin AST ALT Alkaline Phosphatase Total Protein Albumin Urine Color Urine Appearance Urine pH Ur Specific [place] Urine Protein Urine Glucose (UA) Urine Ketones Urine Blood Urine Nitrite Urine Bilirubin Urine Urobilinogen Ur Leukocyte Esterase Urine Osmolality Stool O & P Wet [place] O & P Permanent Slide Intake & Output 04/08/17 04/09/17 04/10/17 04/11/17 23:59 23:59 23:59 23:59 Intake Total 700 Output Total 1700 600 Balance -1000 -600 Weight 92.986 kg 86.364 kg Current Medications Generic Name Dose Route Start Last Admin Trade Name Freq PRN Reason Stop Dose Admin Aspirin 325 mg 04/09/17 21:30 04/10/17 11:44 Asa - PO 325 mg DAILY [facility] Administration Heparin Sodium (Porcine) 5,000 unit 04/10/17 06:00 04/11/17 06:23 Heparin - SQ Not Given TID [facility] Sodium Chloride 1,000 mls @ 100 mls/hr 04/10/17 14:45 04/10/17 21:27 1/2 Normal Saline IV 100 mls/hr ASDIR [facility] Administration Influenza Virus Vaccine Quadrival 60 mcg 04/11/17 02:12 Flulaval Quad [id number] IM 04/11/17 02:13 .ONCE ONE Tamsulosin HCl 0.4 mg 04/11/17 08:30 Flomax - PO DAILY@0830 [facility]
[2017-04-11] MEDS: HEPARIN NA (PORCINE) 5,000 UNITS/ML 1ML VIAL SQ SCH (06:23)
[2017-04-11 08:21] LABS: HEMATOCRIT 30.8 % (35.4-49); HEMOGLOBIN 9.7 GM/dL (11.7-16.9); MCH 31.5 pg (25.7-33.7); MCHC 31.7 g/dl (32.0-35.9); MEAN CELL VOLUME 99.4 fl (80-96); MEAN PLT VOLUME 11.3 fl (7.5-11.1); PLATELET COUNT 89 K/MM3 (134-434); RDW 18.8 % (11.9-15.9); WHITE BLOOD COUNT 5.1 K/mm3 (4.0-10.0)
[2017-04-11 08:45] LABS: ALBUMIN 2.6 g/dl (3.4-5.0); ANION GAP 9 (8-16); BLOOD UREA NITROGEN 53 mg/dL (7-18); CALCIUM 7.7 mg/dL (8.5-10.1); CHLORIDE 128 mmol/L (98-107); CO2 22 mmol/L (21-32); CREATININE 3.3 mg/dL (0.7-1.3); GLUCOSE,RANDOM 76 mg/dL (74-106); SGOT/AST 38 U/L (15-37); SGPT/ALT 24 U/L (12-78); SODIUM 159 mmol/L (136-145)
[2017-04-11 08:48] LABS: ALK PHOS 198 U/L (45-117); BILIRUBIN,TOTAL 0.8 mg/dL (0.2-1.0); TOT PROT 6.3 g/dl (6.4-8.2)
[2017-04-11] MEDS: ASPIRIN 325 MG TABLET PO SCH (11:11)
[2017-04-11] MEDS: TAMSULOSIN HCL 0.4 MG CAP.ER.24H (FP) PO SCH (11:11)
[2017-04-11] MEDS: SODIUM CHLORIDE 0.45% 1,000 ML IV SCH (11:46)
--- NOTE | 2017-04-11 12:18 | PN ---
Progress Note, Physician - Current Medication List Current Medications: Active Medications Aspirin (Asa -) 325 mg PO DAILY [facility] Last Admin: 04/11/17 11:11 Dose: Not Given Heparin Sodium (Porcine) (Heparin -) 5,000 unit SQ TID [facility] Last Admin: 04/11/17 06:23 Dose: Not Given Sodium Chloride (1/2 Normal Saline) 1,000 mls @ 100 mls/hr IV ASDIR [facility] Last Admin: 04/11/17 11:46 Dose: 100 mls/hr Tamsulosin HCl (Flomax -) 0.4 mg PO DAILY@0830 [facility] Last Admin: 04/11/17 11:11 Dose: Not Given - Objective Vital Signs: Vital Signs Temperature 99.8 F H 04/11/17 09:00 Pulse Rate 95 H 04/11/17 09:00 Respiratory Rate 18 04/11/17 09:00 Blood Pressure 145/69 04/11/17 09:00 O2 Sat by Pulse Oximetry (%) 100 04/10/17 20:00 Cardiovascular: Yes: S1, S2 Respiratory: Yes: Regular, CTA Bilaterally Gastrointestinal: Yes: Normal Bowel Sounds, Soft Labs: CBC, BMP 04/11/17 07:20 04/11/17 07:20 INR, PTT INR 1.06 (0.82-1.09) 04/09/17 16:46 Assessment/Plan - Problems (1) Hypernatremia Assessment/Plan: renal evaluation iv fluids secondary to poor po intake and diarrhea Code(s): E87.0 - HYPEROSMOLALITY AND HYPERNATREMIA (2) SILVESTRE (acute kidney injury) Assessment/Plan: renal sono blader sono--hydro and retention--godinez and urology urine lytes ivf maybe seconary to decrease po intake Code(s): N17.9 - ACUTE KIDNEY FAILURE, UNSPECIFIED (3) Slurred speech Assessment/Plan: MRI w/o contrast given renal function is elevated dvt ppx tomy svetlana eval- MBS carotid doppler and echo done neur eval lipid panel asa and statin PT eval Code(s): R47.81 - SLURRED SPEECH (4) Diarrhea Assessment/Plan: stool sent Code(s): R19.7 - DIARRHEA, UNSPECIFIED (5) Hematuria Assessment/Plan: godinez urology ua cs (6) Thrombocytopenia Assessment/Plan: dc heparin and asa monitor
--- NOTE | 2017-04-11 12:22 | CON.GU ---
Consult Consult Specialty:: Hematuria Referred by:: Hospitalist Reason for Consultation:: Pt noted to have gross hematuria . Had had godinez inserted and urine initially clear yellow. Pt obtunded and not responding to verbal stimulus. Has hands clamped over sheet/bedding new godinez. Urine is pale brownish now. No evidence of active bleeding from godinez/urethra. - History Source History Provided By: Caregiver (Nurse. 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 Home Medications - Allergies Allergies/Adverse Reactions: Allergies Allergy/AdvReac Type Severity Reaction Status Date / Time No Known Allergies Allergy Verified 04/09/17 16:50 - Home Medications Home Medications: Ambulatory Orders Metformin HCl [Glucophage -] 500 mg PO DAILY 01/02/15 Atorvastatin Ca [Lipitor] 10 mg PO HS #30 tablet 01/03/15 Cyanocobalamin [Vitamin B12 -] 1,000 mcg PO DAILY #30 tablet 01/03/15 Unobtainable 04/09/17 Family Disease History - Family Disease History Family History: Unable to Obtain Family Disease History: Other: Brother (asthma) Review of Systems Unable to obtain ROS, reason: Pt is nonverbal. Physical Exam- Vital Signs: Vital Signs Temperature 99.8 F H 04/11/17 09:00 Pulse Rate 95 H 04/11/17 09:00 Respiratory Rate 18 04/11/17 09:00 Blood Pressure 145/69 04/11/17 09:00 O2 Sat by Pulse Oximetry (%) 100 04/10/17 20:00 Constitutional: Yes: Well Nourished Respiratory: Yes: WNL Gastrointestinal: Yes: Normal Bowel Sounds, Soft Renal/: Yes: WNL, Hematuria (Resolving. No active bleeding). No: Anuria, Bladder Distention, CVA Tenderness - Left, CVA Tenderness - Right, Godinez Present , Incontinence, Menses Present, Oliguria, Polyuria, , Scrotal Edema, Urethral Discharge, Vaginal Bleeding, Vaginal Discharge, Other Kidneys: Yes: WNL Pelvis: Yes: Inguinal Hernia Left Testicles: Yes: WNL Scrotum: Yes: WNL Penis: Yes: WNL Prostate Exam: Yes: Deferred Musculoskeletal: Yes: WNL Extremities: Yes: WNL Integumentary: Yes: WNL Psychiatric: Yes: Other Labs: CBC, BMP 04/11/17 07:20 04/11/17 07:20 Imaging - Results Ultrasound: Report Reviewed (Bilateral hydro with distended bladder.) Problem List - Problems (1) Hematuria Code(s): R31.9 - HEMATURIA, UNSPECIFIED Qualifiers: Hematuria type: gross Qualified Code(s): R31.0 - Gross hematuria (2) Hydronephrosis Code(s): N13.30 - UNSPECIFIED HYDRONEPHROSIS Qualifiers: Hydronephrosis type: other Qualified Code(s): N13.39 - Other hydronephrosis Assessment/Plan Maintain godinez catheter drainage and avoid trauma including pt. pulling godinez.
--- NOTE | 2017-04-11 14:01 | PN ---
Progress Note (short form) - Note Progress Note: RENAL Pt appears comfortable not responding Last Vital Signs Temp Pulse Resp BP Pulse Ox 99.8 F H 95 H 18 145/69 100 04/11/17 09:00 04/11/17 09:00 04/11/17 09:00 04/11/17 09:00 04/10/17 20:00 has a swollen right arm lungs clear anteriorly cvss 1s2 rr abd soft ext no edema in LE's godinez with pink/cloudy urine CBC, BMP 04/11/17 07:20 04/11/17 07:20 Current Medications Generic Name Dose Route Start Last Admin Trade Name Freq PRN Reason Stop Dose Admin Heparin Sodium (Porcine) 5,000 unit 04/10/17 06:00 04/11/17 06:23 Heparin - SQ Not Given TID [facility] Sodium Chloride 1,000 mls @ 100 mls/hr 04/10/17 14:45 04/11/17 11:46 1/2 Normal Saline IV 100 mls/hr [facility] Administration CEFTRIAXONE 1 G/50 ML PREMIX 50 mls @ 100 mls/hr 04/11/17 12:45 Ceftriaxone 1 Gm-D5w Bag IVPB DAILY [facility] Tamsulosin HCl 0.4 mg 04/11/17 08:30 04/11/17 11:11 Flomax - PO Not Given DAILY@0830 [facility] Impression 1. SILVESTRE 2. hypernatremia 3. TIA 4. CVA 5. DM 6. chol Plan - change to d5w given hypernatremia and possibility of a postobstructive diuresis - repeat labs in am - continue antibiotics and alpha todd -urology follow up MV
[2017-04-11] MEDS ORDERED: DEXTROSE 5%-WATER - 1,000 ML IV SCH (14:15)
[2017-04-11] MEDS ORDERED: POTASSIUM CHLORIDE 20 MEQ in DEXTROSE 5%-WATER - 1,000 ML IVPB SCH (14:30)
[2017-04-11] MEDS ORDERED: DEXTROSE 5%-WATER - 1,000 ML with POTASSIUM CHLORIDE 20 MEQ IVPB SCH (14:30)
[2017-04-11] MEDS: CEFTRIAXONE 1 G/50 ML PREMIX 50 ML IVPB SCH (14:45)
[2017-04-11] MEDS: POTASSIUM CHLORIDE 20 MEQ in DEXTROSE 5%-WATER - 1,000 ML IVPB SCH (15:53)
[2017-04-12] MEDS: POTASSIUM CHLORIDE 20 MEQ in DEXTROSE 5%-WATER - 1,000 ML IVPB SCH ×2 (06:01→17:20)
[2017-04-12] MEDS: HEPARIN NA (PORCINE) 5,000 UNITS/ML 1ML VIAL SQ SCH ×3 (06:01→23:01)
[2017-04-12 07:56] LABS: HEMATOCRIT 29.9 % (35.4-49); HEMOGLOBIN 9.5 GM/dL (11.7-16.9); MCH 31.7 pg (25.7-33.7); MCHC 31.8 g/dl (32.0-35.9); MEAN CELL VOLUME 99.6 fl (80-96); MEAN PLT VOLUME 12.2 fl (7.5-11.1); PLATELET COUNT 88 K/MM3 (134-434); RDW 18.4 % (11.9-15.9); WHITE BLOOD COUNT 4.8 K/mm3 (4.0-10.0)
[2017-04-12 08:11] LABS: CHLORIDE 125 mmol/L (98-107); POTASSIUM 4.2 mmol/L (3.5-5.1); SODIUM 156 mmol/L (136-145)
[2017-04-12 08:22] LABS: ALBUMIN 2.4 g/dl (3.4-5.0); ALK PHOS 185 U/L (45-117); ANION GAP 9 (8-16); BILIRUBIN,TOTAL 0.5 mg/dL (0.2-1.0); BLOOD UREA NITROGEN 47 mg/dL (7-18); CO2 22 mmol/L (21-32); CREATININE 2.9 mg/dL (0.7-1.3); GLUCOSE,RANDOM 79 mg/dL (74-106); SGOT/AST 38 U/L (15-37); SGPT/ALT 21 U/L (12-78)
[2017-04-12 09:47] LABS: PLATELET ESTIMATE DECREASED
[2017-04-12] MEDS ORDERED: PT OWN MED DRAWER 7, Y5N ONE (09:50)
[2017-04-12] MEDS: TAMSULOSIN HCL 0.4 MG CAP.ER.24H (FP) PO SCH (10:19)
[2017-04-12] MEDS: CEFTRIAXONE 1 G/50 ML PREMIX 50 ML IVPB SCH (10:19)
--- NOTE | 2017-04-12 10:23 | PN ---
Progress Note, Physician - Current Medication List Current Medications: Active Medications Heparin Sodium (Porcine) (Heparin -) 5,000 unit SQ TID [facility] Last Admin: 04/12/17 06:01 Dose: Not Given CEFTRIAXONE 1 G/50 ML PREMIX (Ceftriaxone 1 Gm-D5w Bag) 50 mls @ 100 mls/hr IVPB DAILY [facility] Last Admin: 04/12/17 10:19 Dose: 100 mls/hr Potassium Chloride 20 meq/ (Dextrose) 1,010 mls @ 75 mls/hr IVPB Q13H [facility] Last Admin: 04/12/17 06:01 Dose: 75 mls/hr Tamsulosin HCl (Flomax -) 0.4 mg PO DAILY@0830 [facility] Last Admin: 04/12/17 10:19 Dose: 0.4 mg - Objective Vital Signs: Vital Signs Temperature 97.6 F 04/12/17 06:10 Pulse Rate 84 04/12/17 06:10 Respiratory Rate 20 04/12/17 06:10 Blood Pressure 122/81 04/12/17 06:10 O2 Sat by Pulse Oximetry (%) 98 04/11/17 21:00 Cardiovascular: Yes: S1, S2 Respiratory: Yes: Regular, CTA Bilaterally Gastrointestinal: Yes: Normal Bowel Sounds, Soft Labs: CBC, BMP 04/12/17 06:20 04/12/17 06:20 INR, PTT INR 1.06 (0.82-1.09) 04/09/17 16:46 Assessment/Plan - Problems (1) Hypernatremia Assessment/Plan: renal evaluation iv fluids secondary to poor po intake and diarrhea Code(s): E87.0 - HYPEROSMOLALITY AND HYPERNATREMIA (2) SILVESTRE (acute kidney injury) Assessment/Plan: renal sono blader sono--hydro and retention--godinez and urology urine lytes ivf maybe seconary to decrease po intake Code(s): N17.9 - ACUTE KIDNEY FAILURE, UNSPECIFIED (3) Slurred speech Assessment/Plan: MRI w/o contrast given renal function is elevated dvt ppx tomy svetlana eval- MBS carotid doppler and echo done neur eval lipid panel asa and statin PT eval Code(s): R47.81 - SLURRED SPEECH (4) Diarrhea Assessment/Plan: stool sent Code(s): R19.7 - DIARRHEA, UNSPECIFIED (5) Hematuria Assessment/Plan: godinez urology ua cs (6) Thrombocytopenia Assessment/Plan: dc heparin and asa monitor
[2017-04-12] MEDS ORDERED: POTASSIUM CHLORIDE 20 MEQ in DEXTROSE 5%-WATER - 1,000 ML IVPB SCH (14:30)
[2017-04-13] MEDS: HEPARIN NA (PORCINE) 5,000 UNITS/ML 1ML VIAL SQ SCH (06:20)
[2017-04-13] MEDS: POTASSIUM CHLORIDE 20 MEQ in DEXTROSE 5%-WATER - 1,000 ML IVPB SCH ×3 (06:51→22:38)
[2017-04-13 07:33] LABS: BASO % 0.4 % (0-2.0); EOS % 4.3 % (0-4.5); HEMATOCRIT 30.4 % (35.4-49); HEMOGLOBIN 9.7 GM/dL (11.7-16.9); LYMPH % 28.7 % (8-40); MCH 31.9 pg (25.7-33.7); MCHC 31.9 g/dl (32.0-35.9); MEAN CELL VOLUME 100.1 fl (80-96); MEAN PLT VOLUME 11.7 fl (7.5-11.1); NEUT % 57.6 % (42.8-82.8); PLATELET COUNT 84 K/MM3 (134-434); RBC 3.04 M/mm3 (4.00-5.60); RDW 18.5 % (11.9-15.9); WHITE BLOOD COUNT 6.1 K/mm3 (4.0-10.0)
[2017-04-13 07:58] LABS: ALBUMIN 2.5 g/dl (3.4-5.0); ANION GAP 7 (8-16); BLOOD UREA NITROGEN 36 mg/dL (7-18); CALCIUM 7.6 mg/dL (8.5-10.1); CHLORIDE 119 mmol/L (98-107); CO2 24 mmol/L (21-32); GLUCOSE,RANDOM 90 mg/dL (74-106); POTASSIUM 4.1 mmol/L (3.5-5.1); SODIUM 150 mmol/L (136-145)
[2017-04-13 08:03] LABS: ALK PHOS 230 U/L (45-117); BILIRUBIN,TOTAL 0.6 mg/dL (0.2-1.0); CREATININE 2.7 mg/dL (0.7-1.3); SGOT/AST 47 U/L (15-37); SGPT/ALT 25 U/L (12-78); TOT PROT 6.2 g/dl (6.4-8.2)
[2017-04-13] MEDS: TAMSULOSIN HCL 0.4 MG CAP.ER.24H (FP) PO SCH (09:32)
[2017-04-13] MEDS: CEFTRIAXONE 1 G/50 ML PREMIX 50 ML IVPB SCH (09:32)
--- NOTE | 2017-04-13 10:44 | PN ---
Progress Note, Physician Chief Complaint: Diarrhea, R/O TIA History of Present Illness: -MRI and CT head negative -Heparin on hold for hematuria -H/H drop, normal transfusion parameters -Iron sucrose, -Has significant hx of Vit B 12 def -godinez catheter -seen by nad nephrology -doesn't respond to verbal stimuli, pulls hands on touch, moves feet/legs on examination - Current Medication List Current Medications: Active Medications CEFTRIAXONE 1 G/50 ML PREMIX (Ceftriaxone 1 Gm-D5w Bag) 50 mls @ 100 mls/hr IVPB DAILY [facility] Last Admin: 04/13/17 09:32 Dose: 100 mls/hr Potassium Chloride 20 meq/ (Dextrose) 1,010 mls @ 75 mls/hr IVPB Q13H [facility] Last Admin: 04/13/17 07:43 Dose: 75 mls/hr Iron Sucrose 300 mg/ Sodium (Chloride) 250 mls @ 250 mls/hr IVPB ONCE ONE Stop: 04/13/17 11:37 Tamsulosin HCl (Flomax -) 0.4 mg PO DAILY@0830 [facility] Last Admin: 04/13/17 09:32 Dose: 0.4 mg - Objective Vital Signs: Vital Signs Temperature 98.0 F 04/13/17 09:00 Pulse Rate 72 04/13/17 09:00 Respiratory Rate 18 04/13/17 09:00 Blood Pressure 106/60 04/13/17 09:00 O2 Sat by Pulse Oximetry (%) 98 04/13/17 09:00 Constitutional: Yes: Well Nourished, No Distress, Calm Cardiovascular: Yes: Regular Rate and Rhythm Respiratory: Yes: Regular Gastrointestinal: Yes: Normal Bowel Sounds Genitourinary: Yes: Godinez Present, Hematuria Musculoskeletal: Yes: WNL Extremities: Yes: Other (generalized atrophy) Edema: No Peripheral Pulses WNL: Yes Neurological: Yes: Pre-Existing Deficit, Unresponsive Labs: CBC, BMP 04/13/17 06:52 04/13/17 06:52 INR, PTT INR 1.06 (0.82-1.09) 04/09/17 16:46 Problem List - Problems (1) Diarrhea Assessment/Plan: check stool for ob and O&P -cdiff, culture negative -GI consult Code(s): R19.7 - DIARRHEA, UNSPECIFIED (2) Hematuria Assessment/Plan: -likely 2/2 to trauma during godinez insertion -improved -seen by -maintain godinez for now -monitor H/H -Heparin discontinued -scd's in place Code(s): R31.9 - HEMATURIA, UNSPECIFIED Qualifiers: Hematuria type: gross Qualified Code(s): R31.0 - Gross hematuria (3) Hypernatremia Assessment/Plan: -seen by nephrology -IVF -I&O's -godinez Code(s): E87.0 - HYPEROSMOLALITY AND HYPERNATREMIA (4) Anemia Code(s): D64.9 - ANEMIA, UNSPECIFIED Qualifiers: Anemia type: B12 deficiency (5) Altered mental status Assessment/Plan: -MRI/CT head negative -d/c heparin -recheck B 12, last was 95 -could be 2/2 to dehydration due to decreased PO intake Code(s): R41.82 - ALTERED MENTAL STATUS, UNSPECIFIED (6) Urinary retention Assessment/Plan: -Godinez -seen by -Tamsulosin -trial of godinez removal in another 1-2 days Code(s): R33.9 - RETENTION OF URINE, UNSPECIFIED Assessment/Plan see problem list
[2017-04-13] MEDS ORDERED: IRON SUCROSE INJECTION 300 MG in SODIUM CHLORIDE 235 ML IVPB ONE (11:30)
[2017-04-13] MEDS: CYANOCOBALAMIN (VITAMIN B-12) 1000 MCG/1 ML VIAL IM SCH (11:35)
--- NOTE | 2017-04-13 13:58 | PN ---
Progress Note, Physician History of Present Illness: Pt seen and examined at bedside. He is awake. He requires one to on feeds. - Current Medication List Current Medications: Active Medications Atorvastatin Calcium (Lipitor -) 10 mg PO [facility] Cyanocobalamin (Vitamin B12 Injection -) 1,000 mcg IM DAILY [facility] Last Admin: 04/13/17 11:35 Dose: 1,000 mcg Potassium Chloride 20 meq/ (Dextrose) 1,010 mls @ 75 mls/hr IVPB Q13H [facility] Last Admin: 04/13/17 07:43 Dose: 75 mls/hr Tamsulosin HCl (Flomax -) 0.4 mg PO DAILY@0830 [facility] Last Admin: 04/13/17 09:32 Dose: 0.4 mg - Objective Vital Signs: Vital Signs Temperature 98.0 F 04/13/17 09:00 Pulse Rate 72 04/13/17 09:00 Respiratory Rate 18 04/13/17 09:00 Blood Pressure 106/60 04/13/17 09:00 O2 Sat by Pulse Oximetry (%) 98 04/13/17 09:00 Constitutional: Yes: Calm Eyes: Yes: Conjunctiva Clear HENT: Yes: Atraumatic Cardiovascular: Yes: S1, S2 Respiratory: Yes: CTA Bilaterally Gastrointestinal: Yes: Soft Genitourinary: Yes: Godinez Present Musculoskeletal: Yes: Muscle Weakness Edema: No Neurological: Yes: Aphasia Labs: CBC, BMP 04/13/17 06:52 04/13/17 06:52 INR, PTT INR 1.06 (0.82-1.09) 04/09/17 16:46 - ....Imaging Ultrasound: Report Reviewed MRI: Report Reviewed Problem List - Problems (1) Altered mental status Code(s): R41.82 - ALTERED MENTAL STATUS, UNSPECIFIED (2) Hydronephrosis Code(s): N13.30 - UNSPECIFIED HYDRONEPHROSIS Qualifiers: Hydronephrosis type: other Qualified Code(s): N13.39 - Other hydronephrosis (3) Hypernatremia Code(s): E87.0 - HYPEROSMOLALITY AND HYPERNATREMIA (4) Urinary retention Code(s): R33.9 - RETENTION OF URINE, UNSPECIFIED (5) SILVESTRE (acute kidney injury) Code(s): N17.9 - ACUTE KIDNEY FAILURE, UNSPECIFIED Assessment/Plan Current Medications Generic Name Dose Route Start Last Admin Trade Name Ayan PRN Reason Stop Dose Admin Atorvastatin Calcium 10 mg 04/13/17 22:00 Lipitor - PO HS [facility] Cyanocobalamin 1,000 mcg 04/13/17 10:45 04/13/17 11:35 Vitamin B12 Injection - IM 1,000 mcg DAILY [facility] Administration Potassium Chloride 20 meq/ 1,010 mls @ 75 mls/hr 04/11/17 16:00 04/13/17 07: 43 Dextrose IVPB 75 mls/hr Q13H [facility] Administration Tamsulosin HCl 0.4 mg 04/11/17 08:30 04/13/17 09:32 Flomax - PO 0.4 mg DAILY@0830 [facility] Administration Laboratory Tests 04/12/17 04/12/17 04/13/17 06:20 06:20 06:52 Hgb 9.5 L 9.7 L Sodium 156 H Potassium Chloride Carbon Dioxide Anion Gap BUN Creatinine 04/13/17 06:52 Hgb Sodium 150 H Potassium 4.1 Chloride 119 H Carbon Dioxide 24 Anion Gap 7 L BUN 36 H D Creatinine 2.7 H Impression 1. SILVESTRE 2. hypernatremia 3. TIA 4. CVA 5. DM 6. chol 7. obstructive uropathy Plan - cont with fluids - repeat labs in am - maintain godinez - monitor urine output - neuro follow up - sodium is improving - cont flomax Dr Hua
--- NOTE | 2017-04-13 14:43 | CON.GI ---
Consult Consult Specialty:: GI Reason for Consultation:: diarrhea - History of Present Illness History of Present Illness: This is a 86 y/o man with a PMHx of NIDDM, TIA with multiple hospital visits for possible stroke who presented to ED BIBA accompanied by family because fam noticed facial droop and slurred speech. While hospitalized was noted to have obstrcutive uropathhy and diarrhea. Developed hematurea post Canas catheter insertion. The pt is minimally responsive and is unable to provide any history. He doesn't appear toxic, or in distress. No melena, or hematochezia reported. 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 Home Medications - Allergies Allergies/Adverse Reactions: Allergies Allergy/AdvReac Type Severity Reaction Status Date / Time No Known Allergies Allergy Verified 04/09/17 16:50 - Home Medications Home Medications: Ambulatory Orders Metformin HCl [Glucophage -] 500 mg PO DAILY 01/02/15 Atorvastatin Ca [Lipitor] 10 mg PO HS #30 tablet 01/03/15 Cyanocobalamin [Vitamin B12 -] 1,000 mcg PO DAILY #30 tablet 01/03/15 Unobtainable 04/09/17 Family Disease History - Family Disease History Family History: Unremarkable Family Disease History: Other: Brother (asthma) Review of Systems Findings/Remarks: As per HPI, H&P Physical Exam-GI Vital Signs: Vital Signs Temperature 98.0 F 04/13/17 09:00 Pulse Rate 72 04/13/17 09:00 Respiratory Rate 18 04/13/17 09:00 Blood Pressure 106/60 04/13/17 09:00 O2 Sat by Pulse Oximetry (%) 98 04/13/17 09:00 Constitutional: Yes: Calm. No: Cachectic HENT: Yes: Atraumatic Respiratory: Yes: Regular Gastrointestinal Inspection: No: Ascites, Distention ...Palpate: Yes: Soft. No: Firm/Rigid, Guarding Neurological: Yes: Alert (to self) Psychiatric: No: Agitated Labs: CBC, BMP 04/13/17 06:52 04/13/17 06:52 INR, PTT INR 1.06 (0.82-1.09) 04/09/17 16:46 CBCD WBC 6.1 K/mm3 (4.0-10.0) 04/13/17 06:52 RBC 3.04 M/mm3 (4.00-5.60) L 04/13/17 06:52 Hgb 9.7 GM/dL (11.7-16.9) L 04/13/17 06:52 Hct 30.4 % (35.4-49) L 04/13/17 06:52 MCV 100.1 fl (80-96) H 04/13/17 06:52 MCHC 31.9 g/dl (32.0-35.9) L 04/13/17 06:52 RDW 18.5 % (11.9-15.9) H 04/13/17 06:52 Plt Count 84 K/MM3 (134-434) L 04/13/17 06:52 MPV 11.7 fl (7.5-11.1) H 04/13/17 06:52 CMP Sodium 150 mmol/L (136-145) H 04/13/17 06:52 Potassium 4.1 mmol/L (3.5-5.1) 04/13/17 06:52 Chloride 119 mmol/L (98-107) H 04/13/17 06:52 Carbon Dioxide 24 mmol/L (21-32) 04/13/17 06:52 Anion Gap 7 (8-16) L 04/13/17 06:52 BUN 36 mg/dL (7-18) H D 04/13/17 06:52 Creatinine 2.7 mg/dL (0.7-1.3) H 04/13/17 06:52 Creat Clearance w eGFR 22.52 (>60) 04/13/17 06:52 Calcium 7.6 mg/dL (8.5-10.1) L 04/13/17 06:52 Total Bilirubin 0.6 mg/dL (0.2-1.0) 04/13/17 06:52 AST 47 U/L (15-37) H D 04/13/17 06:52 ALT 25 U/L (12-78) 04/13/17 06:52 Alkaline Phosphatase 230 U/L (45-117) H D 04/13/17 06:52 Total Protein 6.2 g/dl (6.4-8.2) L 04/13/17 06:52 Albumin 2.5 g/dl (3.4-5.0) L 04/13/17 06:52 Problem List - Problems (1) Diarrhea Code(s): R19.7 - DIARRHEA, UNSPECIFIED Assessment/Plan An 86 yom with altered mental status, renal insufficiency, macrocytic anemia and diarrhea w/o evidence of toxicity, or significant distress. No BMS between 7 am and 12 pm Agree with r/o c. diff colitis. Adequate hydration Monitor renal function and electrolytes If c. diff negative ok to give imodium PRN b12, folate aspiration precautions will monitor
--- NOTE | 2017-04-13 20:01 | CONSULT ---
Consult - text type - Consultation Consultation Note: 86M PMH of hypertension, HLD, diabetes, multiple hospital visits for TIA's and stroke with residual left facial droop who presents to the emergency department with speech slurring. Concern for TIA/CVA. MRI brain showed marked atrophy Patient unable to provide detailed history but awake and asking for water. 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 Home Medications - Allergies Allergies/Adverse Reactions: Allergies Allergy/AdvReac Type Severity Reaction Status Date / Time No Known Allergies Allergy Verified 04/09/17 16:50 - Home Medications Home Medications: Ambulatory Orders Metformin HCl [Glucophage -] 500 mg PO DAILY 01/02/15 Atorvastatin Ca [Lipitor] 10 mg PO HS #30 tablet 01/03/15 Cyanocobalamin [Vitamin B12 -] 1,000 mcg PO DAILY #30 tablet 01/03/15 Unobtainable 04/09/17 Active Medications Generic Name Dose Route Start Last Admin Trade Name Freq PRN Reason Stop Dose Admin Atorvastatin Calcium 10 mg 04/13/17 22:00 04/13/17 22:07 Lipitor - PO 10 mg HS [facility] Administration Cyanocobalamin 1,000 mcg 04/13/17 10:45 04/13/17 11:35 Vitamin B12 Injection - IM 1,000 mcg DAILY [facility] Administration Potassium Chloride 20 meq/ 1,010 mls @ 75 mls/hr 04/11/17 16:00 04/14/17 00: 43 Dextrose IVPB 75 mls/hr Q13H [facility] Administration Tamsulosin HCl 0.4 mg 04/11/17 08:30 04/13/17 09:32 Flomax - PO 0.4 mg DAILY@0830 [facility] Administration Family Disease History - Family Disease History Family History: Unable to Obtain Family Disease History: Other: Brother (asthma) Review of Systems Unable to obtain ROS, reason: incomprehensible speech Findings/Remarks: Dementia - Review of Systems Gastrointestinal: reports: Diarrhea Physical Exam Vital Signs: Last Vital Signs Temp Pulse Resp BP Pulse Ox 97.8 F 83 20 131/60 98 04/13/17 18:27 04/13/17 18:27 04/13/17 18:27 04/13/17 18:27 04/13/17 09:00 Constitutional: Yes: No Distress, Calm HENT: Yes: Atraumatic Neck: Yes: Supple Cardiovascular: Yes: Regular Rate and Rhythm Respiratory: Yes: CTA Bilaterally Gastrointestinal: Yes: Soft Edema: No Neurological: Yes: Other (incomprehensible speech) godinez catheter Abnormal Lab Results 04/13/17 04/13/17 06:52 06:52 RBC 3.04 L Hgb 9.7 L Hct 30.4 L MCV 100.1 H MCHC 31.9 L RDW 18.5 H Plt Count 84 L MPV 11.7 H Sodium 150 H Chloride 119 H Anion Gap 7 L BUN 36 H D Creatinine 2.7 H Calcium 7.6 L AST 47 H D Alkaline Phosphatase 230 H D Total Protein 6.2 L Albumin 2.5 L Imaging - Results Cat Scan: Report Reviewed, Image Reviewed Ultrasound: Report Reviewed, Image Reviewed Assessment/Plan 86M with history of HTN HLD dementia and multiple TIAs presents to the hospital with facial droop found to have hypernatremia and SILVESTRE HTN HLD DM Dementia Hypernatremia Acute kidney injury/Acute renal Failure Bilateral Hydronephrosis thrombocytopenia --suspect an element of aspiration or occult infection as cause of thrombocytopenia cultures neg. but suspect low level aspiration/uti as sources would repeat urine cx speech and swallow team to f/u neuro f/u anemia--anemia of chronic disease screeening tests--iron studies, thyroid syudies, B12, folate
[2017-04-13] MEDS: ATORVASTATIN CA 10 MG TABLET (FP) PO SCH (22:07)
[2017-04-14] MEDS: POTASSIUM CHLORIDE 20 MEQ in DEXTROSE 5%-WATER - 1,000 ML IVPB SCH ×2 (00:43→09:48)
[2017-04-14 07:52] LABS: BASO % 0.4 % (0-2.0); EOS % 4.5 % (0-4.5); HEMATOCRIT 29.4 % (35.4-49); HEMOGLOBIN 9.6 GM/dL (11.7-16.9); LYMPH % 25.1 % (8-40); MCH 32.1 pg (25.7-33.7); MCHC 32.6 g/dl (32.0-35.9); MEAN CELL VOLUME 98.4 fl (80-96); MEAN PLT VOLUME 11.2 fl (7.5-11.1); MONO % 8.8 % (3.8-10.2); NEUT % 61.2 % (42.8-82.8); PLATELET COUNT 91 K/MM3 (134-434); RBC 2.98 M/mm3 (4.00-5.60); RDW 18.6 % (11.9-15.9); WHITE BLOOD COUNT 6.3 K/mm3 (4.0-10.0)
[2017-04-14 08:16] LABS: ALBUMIN 2.6 g/dl (3.4-5.0); BLOOD UREA NITROGEN 29 mg/dL (7-18); CALCIUM 7.1 mg/dL (8.5-10.1); CO2 25 mmol/L (21-32); GLUCOSE,RANDOM 96 mg/dL (74-106)
[2017-04-14 08:19] LABS: ANION GAP 8 (8-16); CHLORIDE 112 mmol/L (98-107); POTASSIUM 4.3 mmol/L (3.5-5.1); SODIUM 145 mmol/L (136-145)
[2017-04-14 08:28] LABS: ALK PHOS 227 U/L (45-117); BILIRUBIN,TOTAL 0.6 mg/dL (0.2-1.0); CREATININE 2.3 mg/dL (0.7-1.3); SGOT/AST 50 U/L (15-37); SGPT/ALT 27 U/L (12-78); TOT PROT 6.2 g/dl (6.4-8.2)
[2017-04-14] MEDS ORDERED: PT OWN MED DRAWER 7, Y5N ONE (09:44)
[2017-04-14] MEDS: CYANOCOBALAMIN (VITAMIN B-12) 1000 MCG/1 ML VIAL IM SCH (09:47)
[2017-04-14] MEDS: TAMSULOSIN HCL 0.4 MG CAP.ER.24H (FP) PO SCH (09:47)
--- NOTE | 2017-04-14 12:00 | PN ---
Progress Note, Physician Chief Complaint: patient opens his eyes when his name is called moves his legs godinez cath - Current Medication List Current Medications: Active Medications Atorvastatin Calcium (Lipitor -) 10 mg PO HS [facility] Last Admin: 04/13/17 22:07 Dose: 10 mg Cyanocobalamin (Vitamin B12 Injection -) 1,000 mcg IM DAILY [facility] Last Admin: 04/14/17 09:47 Dose: 1,000 mcg Potassium Chloride 20 meq/ (Dextrose) 1,010 mls @ 75 mls/hr IVPB Q13H [facility] Last Admin: 04/14/17 09:48 Dose: Not Given Tamsulosin HCl (Flomax -) 0.4 mg PO DAILY@0830 [facility] Last Admin: 04/14/17 09:47 Dose: 0.4 mg - Objective Vital Signs: Vital Signs Temperature 98.5 F 04/14/17 10:00 Pulse Rate 92 H 04/14/17 10:00 Respiratory Rate 19 04/14/17 10:00 Blood Pressure 134/60 04/14/17 10:00 O2 Sat by Pulse Oximetry (%) 98 04/13/17 21:00 Constitutional: Yes: Calm Cardiovascular: Yes: Regular Rate and Rhythm, S1, S2 Respiratory: Yes: CTA Bilaterally Gastrointestinal: Yes: Normal Bowel Sounds, Soft Edema: No Neurological: Yes: Weakness (muscle weakness) Labs: CBC, BMP 04/14/17 06:30 04/14/17 06:30 INR, PTT INR 1.06 (0.82-1.09) 04/09/17 16:46 Problem List - Problems (1) Thrombocytopenia Assessment/Plan: heme on board ua to be sent out bu nurse no fever normal WBC Microbiology 04/10/17 17:00 Urine - Urine - Catheterized Urine Culture - Final NO GROWTH OBTAINED 04/11/17 14:45 Blood - Peripheral Venous Blood Culture - Preliminary NO GROWTH OBTAINED AFTER 48 HOURS, INCUBATION TO CONTINUE FOR 3 DAYS. 04/11/17 13:20 Blood - Peripheral Venous Blood Culture - Preliminary NO GROWTH OBTAINED AFTER 48 HOURS, INCUBATION TO CONTINUE FOR 3 DAYS. so far cultures negative will get MBS to r/o silent aspiration Code(s): D69.6 - THROMBOCYTOPENIA, UNSPECIFIED (2) Hypernatremia Assessment/Plan: sodium is improving iv fluids secondary to poor po intake and diarrhea Code(s): E87.0 - HYPEROSMOLALITY AND HYPERNATREMIA (3) SILVESTRE (acute kidney injury) Assessment/Plan: urology consult noted flomax godinez cath iv fluids creatinine stil high but trending down Code(s): N17.9 - ACUTE KIDNEY FAILURE, UNSPECIFIED (4) Slurred speech Assessment/Plan: dvt ppx tomy svetlana eval- MBS ordered to r/o aspiration carotid doppler noted will get vascular evaluation neurology on board lipid panel asa and statin PT eval- noted will need extensive rehab (5) Diarrhea Assessment/Plan: stool sent c dif negative Microbiology 04/09/17 00:30 Stool Clostridium difficile Antigen (ELZBIETA) - Final 04/09/17 00:30 Stool Escherichia coli 0157 Culture - Final NO GROWTH OF SALMONELLA OR SHIGELLA SPECIES OBTAINED NO GROWTH OF CAMPYLOBACTER SPECIES OBTAINED NO GROWTH OF YERSINIA SPECIES OBTAINED NO GROWTH OF VIBRIO SPECIES OBTAINED NO GROWTH OF E COLI 0157 OBTAINED Code(s): R19.7 - DIARRHEA, UNSPECIFIED (6) Urinary retention Assessment/Plan: flomax godinez cath Code(s): R33.9 - RETENTION OF URINE, UNSPECIFIED Assessment/Plan will need extensive rehab urinary retention with godinez
[2017-04-14 13:17] LABS: GAMMA GLUTAMYL TRANSPEPTIDASE 191 U/L (5-85)
--- NOTE | 2017-04-14 13:49 | PN ---
Progress Note (short form) - Note Progress Note: VAscular surgery MRI brain reviewed. No acute infarct. Carotid doppler images reviewed. No elevation of peak systolic veloicites found. No significant stenosis in either ICA. Medical mangagment. No need for vascular intervention at this time. Mauricio gamez DO
--- NOTE | 2017-04-14 14:09 | PN ---
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 NPO today for U/S. MBS orderd, to be done tomorrow,
[2017-04-14 14:49] LABS: URINE APPEARANCE CLEAR; URINE BILIRUBIN NEGATIVE (NEGATIVE); URINE BLOOD 3+ (NEGATIVE); URINE COLOR LTYELLOW; URINE GLUCOSE (UA) NEGATIVE (NEGATIVE); URINE KETONE NEGATIVE (NEGATIVE); URINE LEUK ESTERASE TRACE (NEGATIVE); URINE NITRITE NEGATIVE (NEGATIVE); URINE UROBILINOGEN NEGATIVE mg/dL (0.2-1.0)
[2017-04-14 14:52] LABS: URINE PROTEIN 2+ (NEGATIVE)
[2017-04-14 15:15] LABS: URINE MUCUS RARE
[2017-04-14] MEDS ORDERED: POTASSIUM CHLORIDE 20 MEQ in DEXTROSE 5%-WATER - 1,000 ML IVPB SCH (16:06)
--- NOTE | 2017-04-14 16:06 | PN ---
Progress Note, Physician History of Present Illness: Pt seen and examined at bedside. He is more interactive today. - Current Medication List Current Medications: Active Medications Atorvastatin Calcium (Lipitor -) 10 mg PO HS [facility] Last Admin: 04/13/17 22:07 Dose: 10 mg Cyanocobalamin (Vitamin B12 Injection -) 1,000 mcg IM DAILY [facility] Last Admin: 04/14/17 09:47 Dose: 1,000 mcg Potassium Chloride 20 meq/ (Dextrose) 1,010 mls @ 75 mls/hr IVPB Q13H [facility] Last Admin: 04/14/17 09:48 Dose: Not Given Tamsulosin HCl (Flomax -) 0.4 mg PO DAILY@0830 [facility] Last Admin: 04/14/17 09:47 Dose: 0.4 mg - Objective Vital Signs: Vital Signs Temperature 98.0 F 04/14/17 15:28 Pulse Rate 86 04/14/17 15:28 Respiratory Rate 19 04/14/17 15:28 Blood Pressure 113/63 04/14/17 15:28 O2 Sat by Pulse Oximetry (%) 98 04/14/17 09:00 Constitutional: Yes: Calm Eyes: Yes: Conjunctiva Clear HENT: Yes: Atraumatic Neck: Yes: Supple Cardiovascular: Yes: S1, S2 Respiratory: Yes: CTA Bilaterally Gastrointestinal: Yes: Soft Genitourinary: Yes: Godinez Present Musculoskeletal: Yes: Muscle Weakness Edema: No Neurological: Yes: Aphasia, Pre-Existing Deficit Labs: CBC, BMP 04/14/17 06:30 04/14/17 06:30 INR, PTT INR 1.06 (0.82-1.09) 04/09/17 16:46 Problem List - Problems (1) Altered mental status Code(s): R41.82 - ALTERED MENTAL STATUS, UNSPECIFIED (2) Hydronephrosis Code(s): N13.30 - UNSPECIFIED HYDRONEPHROSIS Qualifiers: Hydronephrosis type: other Qualified Code(s): N13.39 - Other hydronephrosis (3) Hypernatremia Code(s): E87.0 - HYPEROSMOLALITY AND HYPERNATREMIA (4) Urinary retention Code(s): R33.9 - RETENTION OF URINE, UNSPECIFIED (5) SILVESTRE (acute kidney injury) Code(s): N17.9 - ACUTE KIDNEY FAILURE, UNSPECIFIED Assessment/Plan Current Medications Generic Name Dose Route Start Last Admin Trade Name Ayan PRN Reason Stop Dose Admin Atorvastatin Calcium 10 mg 04/13/17 22:00 04/13/17 22:07 Lipitor - PO 10 mg HS [facility] Administration Cyanocobalamin 1,000 mcg 04/13/17 10:45 04/14/17 09:47 Vitamin B12 Injection - IM 1,000 mcg DAILY [facility] Administration Potassium Chloride 20 meq/ 1,010 mls @ 75 mls/hr 04/11/17 16:00 04/14/17 09: 48 Dextrose IVPB Not Given Q13H [facility] Tamsulosin HCl 0.4 mg 04/11/17 08:30 04/14/17 09:47 Flomax - PO 0.4 mg DAILY@0830 [facility] Administration Impression 1. SILVESTRE 2. hypernatremia 3. TIA 4. CVA 5. DM 6. chol 7. obstructive uropathy Plan - renal function is improving - sodum is improving - cont fluids - repeat labs in am - maintain godinez - monitor urine output - neuro follow up - cont flomax Dr Hua
[2017-04-14] MEDS: POTASSIUM CHLORIDE IVPB SCH (18:32)
[2017-04-14] MEDS: DEXTROSE 5% IVPB SCH (18:32)
[2017-04-14] MEDS: WATER IVPB SCH (18:32)
[2017-04-14] MEDS: ATORVASTATIN CA 10 MG TABLET (FP) PO SCH (21:16)
[2017-04-15] MEDS: POTASSIUM CHLORIDE IVPB SCH (05:46)
[2017-04-15] MEDS: DEXTROSE 5% IVPB SCH (05:46)
[2017-04-15] MEDS: WATER IVPB SCH (05:46)
[2017-04-15 06:07] LABS: SERUM IRON SATURATION > 92 % (15-55); TOTAL IRON BINDING CAPACITY < 206 ug/dL (250-450); UIBC < 17 ug/dL (111-343)
[2017-04-15 06:48] LABS: BASO % 0.6 % (0-2.0); EOS % 6.3 % (0-4.5); HEMATOCRIT 29.6 % (35.4-49); HEMOGLOBIN 9.6 GM/dL (11.7-16.9); LYMPH % 26.5 % (8-40); MCH 32.3 pg (25.7-33.7); MCHC 32.6 g/dl (32.0-35.9); MEAN CELL VOLUME 98.9 fl (80-96); MEAN PLT VOLUME 11.5 fl (7.5-11.1); MONO % 11.9 % (3.8-10.2); NEUT % 54.7 % (42.8-82.8); PLATELET COUNT 89 K/MM3 (134-434); RBC 2.99 M/mm3 (4.00-5.60); RDW 18.2 % (11.9-15.9); WHITE BLOOD COUNT 6.6 K/mm3 (4.0-10.0)
[2017-04-15 07:12] LABS: ALBUMIN 2.5 g/dl (3.4-5.0); ALK PHOS 252 U/L (45-117); ANION GAP 6 (8-16); BILIRUBIN,TOTAL 0.6 mg/dL (0.2-1.0); BLOOD UREA NITROGEN 25 mg/dL (7-18); CALCIUM 7.6 mg/dL (8.5-10.1); CHLORIDE 109 mmol/L (98-107); CO2 27 mmol/L (21-32); CREATININE 1.9 mg/dL (0.7-1.3); GLUCOSE,RANDOM 89 mg/dL (74-106); POTASSIUM 4.7 mmol/L (3.5-5.1); SGOT/AST 61 U/L (15-37); SGPT/ALT 33 U/L (12-78); SODIUM 142 mmol/L (136-145); TOT PROT 6.4 g/dl (6.4-8.2)
--- NOTE | 2017-04-15 09:03 | PN ---
Progress Note, Physician History of Present Illness: Clinically the same NAD, appears comfortable. No bms x 2 days, per pt's nurse - Current Medication List Current Medications: Active Medications Atorvastatin Calcium (Lipitor -) 10 mg PO HS [facility] Last Admin: 04/14/17 21:16 Dose: 10 mg Cyanocobalamin (Vitamin B12 Injection -) 1,000 mcg IM DAILY [facility] Last Admin: 04/14/17 09:47 Dose: 1,000 mcg Potassium Chloride 10 meq/ (Dextrose) 1,010 mls @ 70 mls/hr IVPB Q13H [facility] Last Admin: 04/15/17 05:46 Dose: 70 mls/hr Tamsulosin HCl (Flomax -) 0.4 mg PO DAILY@0830 [facility] Last Admin: 04/14/17 09:47 Dose: 0.4 mg - Objective Vital Signs: Vital Signs Temperature 98.1 F 04/15/17 06:00 Pulse Rate 84 04/15/17 06:00 Respiratory Rate 18 04/15/17 06:00 Blood Pressure 127/71 04/15/17 06:00 O2 Sat by Pulse Oximetry (%) 98 04/14/17 21:00 Constitutional: Yes: No Distress, Calm, Other (non-communicative) Gastrointestinal: Yes: Soft. No: Distention, Tenderness, Tenderness, Epigastrium, Tenderness, Rebound Labs: CBC, BMP 04/15/17 06:10 04/15/17 06:10 INR, PTT INR 1.06 (0.82-1.09) 04/09/17 16:46 CBCD WBC 6.6 K/mm3 (4.0-10.0) 04/15/17 06:10 RBC 2.99 M/mm3 (4.00-5.60) L 04/15/17 06:10 Hgb 9.6 GM/dL (11.7-16.9) L 04/15/17 06:10 Hct 29.6 % (35.4-49) L 04/15/17 06:10 MCV 98.9 fl (80-96) H 04/15/17 06:10 MCHC 32.6 g/dl (32.0-35.9) 04/15/17 06:10 RDW 18.2 % (11.9-15.9) H 04/15/17 06:10 Plt Count 89 K/MM3 (134-434) L 04/15/17 06:10 MPV 11.5 fl (7.5-11.1) H 04/15/17 06:10 CMP Sodium 142 mmol/L (136-145) 04/15/17 06:10 Potassium 4.7 mmol/L (3.5-5.1) 04/15/17 06:10 Chloride 109 mmol/L (98-107) H 04/15/17 06:10 Carbon Dioxide 27 mmol/L (21-32) 04/15/17 06:10 Anion Gap 6 (8-16) L 04/15/17 06:10 BUN 25 mg/dL (7-18) H 04/15/17 06:10 Creatinine 1.9 mg/dL (0.7-1.3) H 04/15/17 06:10 Creat Clearance w eGFR 33.78 (>60) 04/15/17 06:10 Calcium 7.6 mg/dL (8.5-10.1) L 04/15/17 06:10 Total Bilirubin 0.6 mg/dL (0.2-1.0) 04/15/17 06:10 AST 61 U/L (15-37) H D 04/15/17 06:10 ALT 33 U/L (12-78) D 04/15/17 06:10 Alkaline Phosphatase 252 U/L (45-117) H 04/15/17 06:10 Total Protein 6.4 g/dl (6.4-8.2) 04/15/17 06:10 Albumin 2.5 g/dl (3.4-5.0) L 04/15/17 06:10 Problem List - Problems (1) Diarrhea Code(s): R19.7 - DIARRHEA, UNSPECIFIED Assessment/Plan An 86 yom with altered mental status, renal insufficiency, macrocytic anemia and diarrhea w/o evidence of toxicity, or significant distress. No BMS for the last 2 days. If no BMs today, consider miralax bid staring tomorrow Adequate hydration Monitor renal function and electrolytes b12, folate aspiration precautions will monitor
[2017-04-15] MEDS: CYANOCOBALAMIN (VITAMIN B-12) 1000 MCG/1 ML VIAL IM SCH (09:25)
[2017-04-15] MEDS: TAMSULOSIN HCL 0.4 MG CAP.ER.24H (FP) PO SCH (09:30)
--- NOTE | 2017-04-15 09:54 | PN ---
Progress Note, Physician - Current Medication List Current Medications: Active Medications Atorvastatin Calcium (Lipitor -) 10 mg PO HS [facility] Last Admin: 04/14/17 21:16 Dose: 10 mg Cyanocobalamin (Vitamin B12 Injection -) 1,000 mcg IM DAILY [facility] Last Admin: 04/15/17 09:25 Dose: Not Given Potassium Chloride 10 meq/ (Dextrose) 1,010 mls @ 70 mls/hr IVPB Q13H [facility] Last Admin: 04/15/17 05:46 Dose: 70 mls/hr Tamsulosin HCl (Flomax -) 0.4 mg PO DAILY@0830 [facility] Last Admin: 04/14/17 09:47 Dose: 0.4 mg - Objective Vital Signs: Vital Signs Temperature 98.1 F 04/15/17 06:00 Pulse Rate 84 04/15/17 06:00 Respiratory Rate 18 04/15/17 09:00 Blood Pressure 127/71 04/15/17 06:00 O2 Sat by Pulse Oximetry (%) 98 04/15/17 09:00 Cardiovascular: Yes: S1, S2 Respiratory: Yes: Regular, CTA Bilaterally Gastrointestinal: Yes: Normal Bowel Sounds, Soft Neurological: Yes: Confusion Labs: CBC, BMP 04/15/17 06:10 04/15/17 06:10 INR, PTT INR 1.06 (0.82-1.09) 04/09/17 16:46 Assessment/Plan - Problems (1) Thrombocytopenia Assessment/Plan: heme on board ua no fever normal WBC Microbiology 04/10/17 17:00 Urine - Urine - Catheterized Urine Culture - Final NO GROWTH OBTAINED 04/11/17 14:45 Blood - Peripheral Venous Blood Culture - Preliminary NO GROWTH OBTAINED AFTER 48 HOURS, INCUBATION TO CONTINUE FOR 3 DAYS. 04/11/17 13:20 Blood - Peripheral Venous Blood Culture - Preliminary NO GROWTH OBTAINED AFTER 48 HOURS, INCUBATION TO CONTINUE FOR 3 DAYS. so far cultures negative will get MBS to r/o silent aspiration Code(s): D69.6 - THROMBOCYTOPENIA, UNSPECIFIED (2) Hypernatremia Assessment/Plan: sodium is improving iv fluids secondary to poor po intake and diarrhea Code(s): E87.0 - HYPEROSMOLALITY AND HYPERNATREMIA (3) SILVESTRE (acute kidney injury) Assessment/Plan: urology consult noted flomax godinez cath iv fluids creatinine stil high but trending down Code(s): N17.9 - ACUTE KIDNEY FAILURE, UNSPECIFIED (4) Slurred speech Assessment/Plan: dvt ppx tomy svetlana eval- MBS ordered to r/o aspiration carotid doppler noted will get vascular evaluation neurology on board lipid panel asa and statin PT eval- noted will need extensive rehab (5) Diarrhea Assessment/Plan: stool sent c dif negative Microbiology 04/09/17 00:30 Stool Clostridium difficile Antigen (ELZBIETA) - Final 04/09/17 00:30 Stool Escherichia coli 0157 Culture - Final NO GROWTH OF SALMONELLA OR SHIGELLA SPECIES OBTAINED NO GROWTH OF CAMPYLOBACTER SPECIES OBTAINED NO GROWTH OF YERSINIA SPECIES OBTAINED NO GROWTH OF VIBRIO SPECIES OBTAINED NO GROWTH OF E COLI 0157 OBTAINED Code(s): R19.7 - DIARRHEA, UNSPECIFIED (6) Urinary retention Assessment/Plan: flomax godinez cath Code(s): R33.9 - RETENTION OF URINE, UNSPECIFIED Assessment/Plan will need extensive rehab urinary retention with godinez
--- NOTE | 2017-04-15 12:22 | PN ---
Progress Note, Physician History of Present Illness: Pt seen and examined at bedside. He was pulling on his godinez last night and did have some hematuria this morning. - Current Medication List Current Medications: Active Medications Atorvastatin Calcium (Lipitor -) 10 mg PO HS [facility] Last Admin: 04/14/17 21:16 Dose: 10 mg Cyanocobalamin (Vitamin B12 Injection -) 1,000 mcg IM DAILY [facility] Last Admin: 04/15/17 09:25 Dose: Not Given Potassium Chloride 10 meq/ (Dextrose) 1,010 mls @ 70 mls/hr IVPB Q13H [facility] Last Admin: 04/15/17 05:46 Dose: 70 mls/hr Tamsulosin HCl (Flomax -) 0.4 mg PO DAILY@0830 [facility] Last Admin: 04/15/17 09:30 Dose: 0.4 mg - Objective Vital Signs: Vital Signs Temperature 97.8 F 04/15/17 09:54 Pulse Rate 67 04/15/17 09:54 Respiratory Rate 19 04/15/17 09:54 Blood Pressure 100/59 04/15/17 09:54 O2 Sat by Pulse Oximetry (%) 98 04/15/17 09:00 Constitutional: Yes: Calm Eyes: Yes: Conjunctiva Clear HENT: Yes: Atraumatic Neck: Yes: Supple Cardiovascular: Yes: S1, S2 Respiratory: Yes: CTA Bilaterally Gastrointestinal: Yes: Soft Genitourinary: Yes: Godinez Present Musculoskeletal: Yes: Muscle Weakness Edema: No Neurological: Yes: Confusion Labs: CBC, BMP 04/15/17 06:10 04/15/17 06:10 INR, PTT INR 1.06 (0.82-1.09) 04/09/17 16:46 Problem List - Problems (1) Altered mental status Code(s): R41.82 - ALTERED MENTAL STATUS, UNSPECIFIED (2) Hydronephrosis Code(s): N13.30 - UNSPECIFIED HYDRONEPHROSIS Qualifiers: Hydronephrosis type: other Qualified Code(s): N13.39 - Other hydronephrosis (3) Hypernatremia Code(s): E87.0 - HYPEROSMOLALITY AND HYPERNATREMIA (4) Urinary retention Code(s): R33.9 - RETENTION OF URINE, UNSPECIFIED (5) SILVESTRE (acute kidney injury) Code(s): N17.9 - ACUTE KIDNEY FAILURE, UNSPECIFIED Assessment/Plan Current Medications Generic Name Dose Route Start Last Admin Trade Name Ayan PRN Reason Stop Dose Admin Atorvastatin Calcium 10 mg 04/13/17 22:00 04/14/17 21:16 Lipitor - PO 10 mg HS [facility] Administration Cyanocobalamin 1,000 mcg 04/13/17 10:45 04/15/17 09:25 Vitamin B12 Injection - IM Not Given DAILY [facility] Potassium Chloride 10 meq/ 1,010 mls @ 70 mls/hr 04/14/17 17:00 04/15/17 05: 46 Dextrose IVPB 70 mls/hr Q13H [facility] Administration Tamsulosin HCl 0.4 mg 04/11/17 08:30 04/15/17 09:30 Flomax - PO 0.4 mg DAILY@0830 [facility] Administration Impression 1. SILVESTRE 2. hypernatremia 3. TIA 4. CVA 5. DM 6. chol 7. obstructive uropathy Plan - cont fluids - d/c potassium from fluids - urology follow up - renal function is improving - maintain godinez - monitor urine output - cont flomax Dr Hua
[2017-04-15] MEDS: DEXTROSE 5%-WATER - 1,000 ML IV SCH (13:00)
[2017-04-15] MEDS: ATORVASTATIN CA 10 MG TABLET (FP) PO SCH (21:32)
--- NOTE | 2017-04-16 08:01 | PN ---
Progress Note (short form) - Note Progress Note: Diagnosis Addendum: Metabolic encephalopathy in the setting of altered mental status with hypernatremia, arf, sepsis
[2017-04-16 09:06] LABS: ANION GAP 8 (8-16); BLOOD UREA NITROGEN 21 mg/dL (7-18); CALCIUM 7.3 mg/dL (8.5-10.1); CHLORIDE 108 mmol/L (98-107); CO2 24 mmol/L (21-32); GLUCOSE,RANDOM 81 mg/dL (74-106); POTASSIUM 4.4 mmol/L (3.5-5.1); SODIUM 140 mmol/L (136-145)
[2017-04-16 09:07] LABS: CREATININE 1.8 mg/dL (0.7-1.3)
[2017-04-16] MEDS: TAMSULOSIN HCL 0.4 MG CAP.ER.24H (FP) PO SCH (09:13)
--- NOTE | 2017-04-16 11:12 | PN ---
Progress Note, Physician History of Present Illness: Pt seen and examined at bedside. He is more awake and interactive today. - Current Medication List Current Medications: Active Medications Atorvastatin Calcium (Lipitor -) 10 mg PO HS [facility] Last Admin: 04/15/17 21:32 Dose: 10 mg Cyanocobalamin (Vitamin B12 Injection -) 1,000 mcg IM DAILY [facility] Last Admin: 04/15/17 09:25 Dose: Not Given Dextrose (D5w -) 1,000 mls @ 42 mls/hr IV Q23H [facility] Last Admin: 04/15/17 13:00 Dose: 42 mls/hr Tamsulosin HCl (Flomax -) 0.4 mg PO DAILY@0830 [facility] Last Admin: 04/16/17 09:13 Dose: 0.4 mg - Objective Vital Signs: Vital Signs Temperature 97.8 F 04/16/17 09:00 Pulse Rate 88 04/16/17 09:00 Respiratory Rate 20 04/16/17 09:00 Blood Pressure 154/79 04/16/17 09:00 O2 Sat by Pulse Oximetry (%) 98 04/15/17 20:43 Constitutional: Yes: Calm Eyes: Yes: Conjunctiva Clear Cardiovascular: Yes: S1, S2 Respiratory: Yes: CTA Bilaterally Gastrointestinal: Yes: Soft Genitourinary: Yes: Godinez Present Musculoskeletal: Yes: Muscle Weakness Edema: No Neurological: Yes: Other (pt is more awake and alert today) Labs: CBC, BMP 04/15/17 06:10 04/16/17 07:20 INR, PTT INR 1.06 (0.82-1.09) 04/09/17 16:46 Problem List - Problems (1) Altered mental status Code(s): R41.82 - ALTERED MENTAL STATUS, UNSPECIFIED (2) Hydronephrosis Code(s): N13.30 - UNSPECIFIED HYDRONEPHROSIS Qualifiers: Hydronephrosis type: other Qualified Code(s): N13.39 - Other hydronephrosis (3) Hypernatremia Code(s): E87.0 - HYPEROSMOLALITY AND HYPERNATREMIA (4) Urinary retention Code(s): R33.9 - RETENTION OF URINE, UNSPECIFIED (5) SILVESTRE (acute kidney injury) Code(s): N17.9 - ACUTE KIDNEY FAILURE, UNSPECIFIED Assessment/Plan Current Medications Generic Name Dose Route Start Last Admin Trade Name Ayan PRN Reason Stop Dose Admin Atorvastatin Calcium 10 mg 04/13/17 22:00 04/15/17 21:32 Lipitor - PO 10 mg HS [facility] Administration Cyanocobalamin 1,000 mcg 04/13/17 10:45 04/15/17 09:25 Vitamin B12 Injection - IM Not Given DAILY [facility] Dextrose 1,000 mls @ 42 mls/hr 04/15/17 12:30 04/15/17 13:00 D5w - IV 42 mls/hr Q23H [facility] Administration Tamsulosin HCl 0.4 mg 04/11/17 08:30 04/16/17 09:13 Flomax - PO 0.4 mg DAILY@0830 [facility] Administration Impression 1. SILVESTRE 2. hypernatremia 3. TIA 4. CVA 5. DM 6. chol 7. obstructive uropathy Plan - cont with fluids - renal function stabilizing - sodium stable - repeat labs in am - urology godinez up, voiding trial? - monitor urine output - cont flomax Dr Hua
[2017-04-16] MEDS: CYANOCOBALAMIN (VITAMIN B-12) 1000 MCG/1 ML VIAL IM SCH (11:28)
--- NOTE | 2017-04-16 12:28 | PN ---
Progress Note, [facility] - Note Progress Note: Selected Entries 04/15/17 04/15/17 04/15/17 06:00 09:00 09:54 Breakfast 50% Lunch Supper Temperature 98.1 F 97.8 F 04/15/17 04/15/17 04/15/17 14:43 18:48 22:00 Breakfast Lunch 50% Supper 75% Temperature 98.3 F 97.8 F 04/16/17 04/16/17 06:00 09:00 Breakfast Lunch Supper Temperature 97.2 F L 97.8 F Laboratory Tests 04/15/17 06:10 WBC 6.6 MBS reviewed and rec made. Overtly, pt is tolerating PO intake. Swallowing tx upon d/c.
--- NOTE | 2017-04-16 14:11 | PN ---
Progress Note, Physician Chief Complaint: patient seen - Current Medication List Current Medications: Active Medications Atorvastatin Calcium (Lipitor -) 10 mg PO HS [facility] Last Admin: 04/15/17 21:32 Dose: 10 mg Cyanocobalamin (Vitamin B12 Injection -) 1,000 mcg IM DAILY [facility] Last Admin: 04/16/17 11:28 Dose: Not Given Dextrose (D5w -) 1,000 mls @ 42 mls/hr IV Q23H [facility] Last Admin: 04/15/17 13:00 Dose: 42 mls/hr Tamsulosin HCl (Flomax -) 0.4 mg PO DAILY@0830 [facility] Last Admin: 04/16/17 09:13 Dose: 0.4 mg - Objective Vital Signs: Vital Signs Temperature 97.8 F 04/16/17 09:00 Pulse Rate 88 04/16/17 09:00 Respiratory Rate 20 04/16/17 09:00 Blood Pressure 154/79 04/16/17 09:00 O2 Sat by Pulse Oximetry (%) 98 04/15/17 20:43 Constitutional: Yes: Calm Cardiovascular: Yes: Regular Rate and Rhythm, S1, S2 Respiratory: Yes: CTA Bilaterally Gastrointestinal: Yes: Normal Bowel Sounds, Soft Genitourinary: Yes: Godinez Present Neurological: Yes: Other (slurred speech) Labs: CBC, BMP 04/15/17 06:10 04/16/17 07:20 INR, PTT INR 1.06 (0.82-1.09) 04/09/17 16:46 Problem List - Problems (1) Thrombocytopenia Assessment/Plan: heme on board ua to be sent out bu nurse no fever normal WBC Microbiology 04/10/17 17:00 Urine - Urine - Catheterized Urine Culture - Final NO GROWTH OBTAINED 04/11/17 14:45 Blood - Peripheral Venous Blood Culture - Preliminary NO GROWTH OBTAINED AFTER 48 HOURS, INCUBATION TO CONTINUE FOR 3 DAYS. 04/11/17 13:20 Blood - Peripheral Venous Blood Culture - Preliminary NO GROWTH OBTAINED AFTER 48 HOURS, INCUBATION TO CONTINUE FOR 3 DAYS. so far cultures negative will get MBS to r/o silent aspiration Code(s): D69.6 - THROMBOCYTOPENIA, UNSPECIFIED (2) Hypernatremia Assessment/Plan: sodium is improving iv fluids secondary to poor po intake and diarrhea Code(s): E87.0 - HYPEROSMOLALITY AND HYPERNATREMIA (3) SILVESTRE (acute kidney injury) Assessment/Plan: urology consult noted flomax godinez cath will give trial of voiding tmw iv fluids creatinine stil high but trending down Code(s): N17.9 - ACUTE KIDNEY FAILURE, UNSPECIFIED (4) Slurred speech Assessment/Plan: dvt ppx tomy svetlana eval- MBS ordered to r/o aspiration carotid doppler noted will get vascular evaluation neurology on board lipid panel asa and statin PT eval- noted will need extensive rehab (5) Diarrhea Assessment/Plan: stool sent c dif negative Microbiology 04/09/17 00:30 Stool Clostridium difficile Antigen (ELZBIETA) - Final 04/09/17 00:30 Stool Escherichia coli 0157 Culture - Final NO GROWTH OF SALMONELLA OR SHIGELLA SPECIES OBTAINED NO GROWTH OF CAMPYLOBACTER SPECIES OBTAINED NO GROWTH OF YERSINIA SPECIES OBTAINED NO GROWTH OF VIBRIO SPECIES OBTAINED NO GROWTH OF E COLI 0157 OBTAINED Code(s): R19.7 - DIARRHEA, UNSPECIFIED (6) Urinary retention Assessment/Plan: flomax godinez cath trial of voiding tmw Code(s): R33.9 - RETENTION OF URINE, UNSPECIFIED
[2017-04-16] MEDS: DEXTROSE 5%-WATER - 1,000 ML IV SCH (15:15)
--- NOTE | 2017-04-16 16:31 | PN ---
Progress Note (short form) - Note Progress Note: Pt seen and examined confused. O/E: General: NAD HEENt: NCAT Cor: RRR Lungs: clear anteriorly abdomen: soft Temp Pulse Resp BP Pulse Ox 98.6 F 88 20 125/68 96 04/16/17 14:05 04/16/17 14:05 04/16/17 14:05 04/16/17 14:05 04/16/17 09:00 CBC, BMP 04/15/17 06:10 04/16/17 07:20 Current Medications Generic Name Dose Route Start Last Admin Trade Name Freq PRN Reason Stop Dose Admin Atorvastatin Calcium 10 mg 04/13/17 22:00 04/15/17 21:32 Lipitor - PO 10 mg HS [facility] Administration Dextrose 1,000 mls @ 42 mls/hr 04/15/17 12:30 04/16/17 15:15 D5w - IV 42 mls/hr Q23H [facility] Administration Tamsulosin HCl 0.4 mg 04/11/17 08:30 04/16/17 09:13 Flomax - PO 0.4 mg DAILY@0830 [facility] Administration f/u for thrombocytopenia f/u CBC f/u SPEP
[2017-04-16] MEDS: ATORVASTATIN CA 10 MG TABLET (FP) PO SCH (21:29)
[2017-04-17 08:20] LABS: ANION GAP 8 (8-16); BLOOD UREA NITROGEN 24 mg/dL (7-18); CALCIUM 7.5 mg/dL (8.5-10.1); CHLORIDE 104 mmol/L (98-107); CO2 26 mmol/L (21-32); GLUCOSE,RANDOM 85 mg/dL (74-106); POTASSIUM 4.5 mmol/L (3.5-5.1); SODIUM 138 mmol/L (136-145)
[2017-04-17] MEDS: TAMSULOSIN HCL 0.4 MG CAP.ER.24H (FP) PO SCH (08:50)
[2017-04-17] MEDS: POLYETHYLENE GLYCOL 3350 119 GM BTL PO SCH (10:03)
--- NOTE | 2017-04-17 10:10 | PN ---
Progress Note, Physician Chief Complaint: patient smiling in bed no fever - Current Medication List Current Medications: Active Medications Atorvastatin Calcium (Lipitor -) 10 mg PO HS [facility] Last Admin: 04/16/17 21:29 Dose: 10 mg Dextrose (D5w -) 1,000 mls @ 42 mls/hr IV Q23H [facility] Last Admin: 04/16/17 15:15 Dose: 42 mls/hr Polyethylene Glycol (Miralax (For Daily Use) -) 17 gm PO DAILY [facility] Last Admin: 04/17/17 10:03 Dose: 17 gm Tamsulosin HCl (Flomax -) 0.4 mg PO DAILY@0830 [facility] Last Admin: 04/17/17 08:50 Dose: 0.4 mg - Objective Vital Signs: Vital Signs Temperature 98.4 F 04/17/17 06:00 Pulse Rate 87 04/17/17 06:00 Respiratory Rate 18 04/17/17 06:00 Blood Pressure 113/67 04/17/17 06:00 O2 Sat by Pulse Oximetry (%) 96 04/16/17 09:00 Constitutional: Yes: Calm Neck: Yes: Trachea Midline Cardiovascular: Yes: Regular Rate and Rhythm, S1, S2 Respiratory: Yes: CTA Bilaterally Gastrointestinal: Yes: Normal Bowel Sounds, Soft Genitourinary: Yes: Godinez Present Labs: CBC, BMP 04/15/17 06:10 04/17/17 07:30 INR, PTT INR 1.06 (0.82-1.09) 04/09/17 16:46 Problem List - Problems (1) Urinary retention Assessment/Plan: flomax godinez cath to be removed today trial of voiding Code(s): R33.9 - RETENTION OF URINE, UNSPECIFIED (2) Thrombocytopenia Assessment/Plan: heme on board ua to be sent out bu nurse no fever normal WBC Microbiology 04/10/17 17:00 Urine - Urine - Catheterized Urine Culture - Final NO GROWTH OBTAINED 04/11/17 14:45 Blood - Peripheral Venous Blood Culture - Preliminary NO GROWTH OBTAINED AFTER 48 HOURS, INCUBATION TO CONTINUE FOR 3 DAYS. 04/11/17 13:20 Blood - Peripheral Venous Blood Culture - Preliminary NO GROWTH OBTAINED AFTER 48 HOURS, INCUBATION TO CONTINUE FOR 3 DAYS. so far cultures negative Code(s): D69.6 - THROMBOCYTOPENIA, UNSPECIFIED (3) Hypernatremia Assessment/Plan: sodium is normal Code(s): E87.0 - HYPEROSMOLALITY AND HYPERNATREMIA (4) SILVESTRE (acute kidney injury) Assessment/Plan: urology consult noted flomax godinez cath to be removed today-trial of voiding iv fluids creatinine down to 2.0 trending down Code(s): N17.9 - ACUTE KIDNEY FAILURE, UNSPECIFIED (5) Slurred speech Assessment/Plan: dvt ppx tomy svetlana eval- MBS done carotid doppler noted will get vascular evaluation neurology on board lipid panel asa and statin Patient will not cooperatve with PT and has big family support they will take him home and walk him and bathe him (6) Diarrhea Assessment/Plan: stool sent c dif negative Microbiology 04/09/17 00:30 Stool Clostridium difficile Antigen (ELZBIETA) - Final 04/09/17 00:30 Stool Escherichia coli 0157 Culture - Final NO GROWTH OF SALMONELLA OR SHIGELLA SPECIES OBTAINED NO GROWTH OF CAMPYLOBACTER SPECIES OBTAINED NO GROWTH OF YERSINIA SPECIES OBTAINED NO GROWTH OF VIBRIO SPECIES OBTAINED NO GROWTH OF E COLI 0157 OBTAINED Code(s): R19.7 - DIARRHEA, UNSPECIFIED Assessment/Plan plan to remove godinez today trial of voiding, continue flomax diet adjusted per tomy svetlana dvt pxx creatinine trending down on ivf, sodium improved once creatinine stablizes and patient is able to void then DC home
--- NOTE | 2017-04-17 11:20 | PN ---
Progress Note, [employer]IDE [employer] - Note Progress Note: Selected Entries 04/16/17 04/16/17 04/16/17 06:00 09:00 14:05 Breakfast 100% Lunch 75% Temperature 97.2 F L 97.8 F 98.6 F 04/16/17 04/16/17 04/17/17 18:00 20:31 06:00 Breakfast Lunch Temperature 97.8 F 98.1 F 98.4 F 04/17/17 10:00 Breakfast Lunch Temperature 97.6 F Pt tolerating pureed diet/nectar thick liquid. RD f/u regarding family education. Pt would benefit from home care swallowing tx.
[2017-04-17] MEDS: DEXTROSE 5%-WATER - 1,000 ML IV SCH (12:48)
--- NOTE | 2017-04-17 16:01 | PN ---
Progress Note, Physician History of Present Illness: Pt seen and examined at bedside. He is less interactive than he was yesterday. He denies shortness of breath. He is on a voiding trial. - Current Medication List Current Medications: Active Medications Atorvastatin Calcium (Lipitor -) 10 mg PO HS [facility] Last Admin: 04/16/17 21:29 Dose: 10 mg Dextrose (D5w -) 1,000 mls @ 42 mls/hr IV Q23H [facility] Last Admin: 04/17/17 12:48 Dose: 42 mls/hr Polyethylene Glycol (Miralax (For Daily Use) -) 17 gm PO DAILY [facility] Last Admin: 04/17/17 10:03 Dose: 17 gm Tamsulosin HCl (Flomax -) 0.4 mg PO DAILY@0830 [facility] Last Admin: 04/17/17 08:50 Dose: 0.4 mg - Objective Vital Signs: Vital Signs Temperature 98.7 F 04/17/17 14:08 Pulse Rate 90 04/17/17 14:08 Respiratory Rate 18 04/17/17 14:08 Blood Pressure 143/69 04/17/17 14:08 O2 Sat by Pulse Oximetry (%) 96 04/16/17 09:00 Constitutional: Yes: Calm Eyes: Yes: Conjunctiva Clear HENT: Yes: Atraumatic Cardiovascular: Yes: S1, S2 Respiratory: Yes: CTA Bilaterally Gastrointestinal: Yes: Soft Genitourinary: Yes: Incontinence Musculoskeletal: Yes: Muscle Weakness Edema: No Neurological: Yes: Confusion Labs: CBC, BMP 04/15/17 06:10 04/17/17 07:30 INR, PTT INR 1.06 (0.82-1.09) 04/09/17 16:46 Problem List - Problems (1) Altered mental status Code(s): R41.82 - ALTERED MENTAL STATUS, UNSPECIFIED (2) Hydronephrosis Code(s): N13.30 - UNSPECIFIED HYDRONEPHROSIS Qualifiers: Hydronephrosis type: other Qualified Code(s): N13.39 - Other hydronephrosis (3) Hypernatremia Code(s): E87.0 - HYPEROSMOLALITY AND HYPERNATREMIA (4) Urinary retention Code(s): R33.9 - RETENTION OF URINE, UNSPECIFIED (5) SILVESTRE (acute kidney injury) Code(s): N17.9 - ACUTE KIDNEY FAILURE, UNSPECIFIED Assessment/Plan Current Medications Generic Name Dose Route Start Last Admin Trade Name Freq PRN Reason Stop Dose Admin Atorvastatin Calcium 10 mg 04/13/17 22:00 04/16/17 21:29 Lipitor - PO 10 mg HS [facility] Administration Dextrose 1,000 mls @ 42 mls/hr 04/15/17 12:30 04/17/17 12:48 D5w - IV 42 mls/hr Q23H [facility] Administration Polyethylene Glycol 17 gm 04/17/17 10:00 04/17/17 10:03 Miralax (For Daily Use) - PO 17 gm DAILY [facility] Administration Tamsulosin HCl 0.4 mg 04/11/17 08:30 04/17/17 08:50 Flomax - PO 0.4 mg DAILY@0830 [facility] Administration Impression 1. SILVESTRE 2. hypernatremia 3. TIA 4. CVA 5. DM 6. chol 7. obstructive uropathy Plan - voiding trial - repeat labs in am - insert godinez if he does not void - sodium stable - monitor urine output - cont flomax Dr Hua
--- NOTE | 2017-04-17 19:15 | PN ---
Progress Note (short form) - Note Progress Note: Patient seen and examined Denies any complaints Last Vital Signs Temp Pulse Resp BP Pulse Ox 98.0 F 81 18 134/73 96 04/17/17 18:00 04/17/17 18:00 04/17/17 18:00 04/17/17 18:00 04/17/17 09:00 Cor: RSR, No murmurs, No gallops Lungs: Clear to P&A Abd: Soft, Normal bowel sounds, No organomegaly Ext:No significant edema Abnormal Lab Results 04/17/17 07:30 BUN 24 H Creatinine 2.0 H Calcium 7.5 L Active Medications Generic Name Dose Route Start Last Admin Trade Name Freq PRN Reason Stop Dose Admin Atorvastatin Calcium 10 mg 04/13/17 22:00 04/16/17 21:29 Lipitor - PO 10 mg HS [facility] Administration Dextrose 1,000 mls @ 42 mls/hr 04/15/17 12:30 04/17/17 12:48 D5w - IV 42 mls/hr Q23H [facility] Administration Polyethylene Glycol 17 gm 04/17/17 10:00 04/17/17 10:03 Miralax (For Daily Use) - PO 17 gm DAILY [facility] Administration Tamsulosin HCl 0.4 mg 04/11/17 08:30 04/17/17 08:50 Flomax - PO 0.4 mg DAILY@0830 [facility] Administration A/P 86M with history of HTN HLD dementia and multiple TIAs presents to the hospital with facial droop found to have hypernatremia and SILVESTRE HTN HLD DM Dementia Hypernatremia Acute kidney injury/Acute renal Failure Bilateral Hydronephrosis thrombocytopenia --suspect an element of aspiration or occult infection as cause of thrombocytopenia anemia--anemia of chronic disease monitor CBC
[2017-04-17] MEDS: ATORVASTATIN CA 10 MG TABLET (FP) PO SCH (21:27)
[2017-04-18 08:27] LABS: BASO % 0.6 % (0-2.0); EOS % 5.3 % (0-4.5); HEMOGLOBIN 9.3 GM/dL (11.7-16.9); LYMPH % 23.4 % (8-40); MCH 32.7 pg (25.7-33.7); MCHC 33.1 g/dl (32.0-35.9); MEAN CELL VOLUME 98.6 fl (80-96); MEAN PLT VOLUME 11.3 fl (7.5-11.1); MONO % 12.5 % (3.8-10.2); NEUT % 58.2 % (42.8-82.8); PLATELET COUNT 122 K/MM3 (134-434); RBC 2.84 M/mm3 (4.00-5.60); RDW 18.5 % (11.9-15.9); WHITE BLOOD COUNT 6.6 K/mm3 (4.0-10.0)
[2017-04-18 08:48] LABS: ALBUMIN 2.5 g/dl (3.4-5.0); ANION GAP 4 (8-16); BLOOD UREA NITROGEN 26 mg/dL (7-18); CALCIUM 7.2 mg/dL (8.5-10.1); CHLORIDE 105 mmol/L (98-107); CO2 26 mmol/L (21-32); GLUCOSE,RANDOM 84 mg/dL (74-106); POTASSIUM 4.3 mmol/L (3.5-5.1); SODIUM 135 mmol/L (136-145)
[2017-04-18 08:53] LABS: ALK PHOS 253 U/L (45-117); BILIRUBIN,TOTAL 0.7 mg/dL (0.2-1.0); CREATININE 2.1 mg/dL (0.7-1.3); SGOT/AST 54 U/L (15-37); SGPT/ALT 34 U/L (12-78); TOT PROT 6.1 g/dl (6.4-8.2)
[2017-04-18] MEDS: DEXTROSE 5%-WATER - 1,000 ML IV SCH (09:13)
[2017-04-18] MEDS: TAMSULOSIN HCL 0.4 MG CAP.ER.24H (FP) PO SCH (10:46)
[2017-04-18] MEDS: POLYETHYLENE GLYCOL 3350 119 GM BTL PO SCH (11:43)
--- NOTE | 2017-04-18 14:01 | PN ---
Progress Note, Physician Chief Complaint: THIS IS MY FIRST ENCOUNTER WITH THIS PATIENT' ASLEEP COMFORTABLE - Current Medication List Current Medications: Active Medications Atorvastatin Calcium (Lipitor -) 10 mg PO HS [facility] Last Admin: 04/17/17 21:27 Dose: 10 mg Dextrose (D5w -) 1,000 mls @ 42 mls/hr IV Q23H [facility] Last Admin: 04/18/17 09:13 Dose: 42 mls/hr Polyethylene Glycol (Miralax (For Daily Use) -) 17 gm PO DAILY [facility] Last Admin: 04/18/17 11:43 Dose: 17 gm Tamsulosin HCl (Flomax -) 0.4 mg PO DAILY@0830 [facility] Last Admin: 04/18/17 10:46 Dose: 0.4 mg - Objective Vital Signs: Vital Signs Temperature 98.1 F 04/18/17 10:00 Pulse Rate 79 04/18/17 10:00 Respiratory Rate 18 04/18/17 10:00 Blood Pressure 143/89 04/18/17 10:00 O2 Sat by Pulse Oximetry (%) 96 04/17/17 21:00 Constitutional: Yes: No Distress Eyes: Yes: WNL HENT: Yes: WNL Neck: Yes: WNL Cardiovascular: Yes: WNL Respiratory: Yes: WNL Gastrointestinal: Yes: WNL Genitourinary: Yes: WNL Musculoskeletal: Yes: Muscle Weakness Extremities: Yes: WNL Edema: No Peripheral Pulses WNL: Yes Integumentary: Yes: WNL Wound/Incision: Yes: Clean/Dry Neurological: Yes: Confusion ...Motor Strength: WNL Psychiatric: Yes: WNL Labs: CBC, BMP 04/18/17 07:00 04/18/17 07:00 INR, PTT INR 1.06 (0.82-1.09) 04/09/17 16:46 Problem List - Problems (1) Altered mental status Code(s): R41.82 - ALTERED MENTAL STATUS, UNSPECIFIED (2) Diarrhea Code(s): R19.7 - DIARRHEA, UNSPECIFIED (3) Hematuria Code(s): R31.9 - HEMATURIA, UNSPECIFIED Qualifiers: Hematuria type: gross Qualified Code(s): R31.0 - Gross hematuria (4) Hydronephrosis Code(s): N13.30 - UNSPECIFIED HYDRONEPHROSIS Qualifiers: Hydronephrosis type: other Qualified Code(s): N13.39 - Other hydronephrosis (5) Hypernatremia Code(s): E87.0 - HYPEROSMOLALITY AND HYPERNATREMIA (6) Slurred speech Code(s): R47.81 - SLURRED SPEECH (7) Thrombocytopenia Code(s): D69.6 - THROMBOCYTOPENIA, UNSPECIFIED (8) Urinary retention Code(s): R33.9 - RETENTION OF URINE, UNSPECIFIED Assessment/Plan MONITOR RENAL FUNCTION CHECK LABS OOV TO CHAIR PT SNF IVF
--- NOTE | 2017-04-18 15:32 | PN ---
Progress Note, Physician History of Present Illness: Pt seen and examined at bedside. No great change since yesterday. He denies shortness of breath. - Current Medication List Current Medications: Active Medications Atorvastatin Calcium (Lipitor -) 10 mg PO HS [facility] Last Admin: 04/17/17 21:27 Dose: 10 mg Dextrose (D5w -) 1,000 mls @ 42 mls/hr IV Q23H [facility] Last Admin: 04/18/17 09:13 Dose: 42 mls/hr Polyethylene Glycol (Miralax (For Daily Use) -) 17 gm PO DAILY [facility] Last Admin: 04/18/17 11:43 Dose: 17 gm Tamsulosin HCl (Flomax -) 0.4 mg PO DAILY@0830 [facility] Last Admin: 04/18/17 10:46 Dose: 0.4 mg - Objective Vital Signs: Vital Signs Temperature 97.7 F 04/18/17 14:24 Pulse Rate 89 04/18/17 14:24 Respiratory Rate 22 04/18/17 14:24 Blood Pressure 101/51 04/18/17 14:24 O2 Sat by Pulse Oximetry (%) 96 04/17/17 21:00 Constitutional: Yes: Calm Eyes: Yes: Conjunctiva Clear HENT: Yes: Atraumatic Neck: Yes: Supple Cardiovascular: Yes: S1, S2 Respiratory: Yes: CTA Bilaterally Gastrointestinal: Yes: Soft Genitourinary: Yes: Incontinence Musculoskeletal: Yes: Muscle Weakness Edema: No Neurological: Yes: Confusion Labs: CBC, BMP 04/18/17 07:00 04/18/17 07:00 INR, PTT INR 1.06 (0.82-1.09) 04/09/17 16:46 Problem List - Problems (1) Altered mental status Code(s): R41.82 - ALTERED MENTAL STATUS, UNSPECIFIED (2) Hydronephrosis Code(s): N13.30 - UNSPECIFIED HYDRONEPHROSIS Qualifiers: Hydronephrosis type: other Qualified Code(s): N13.39 - Other hydronephrosis (3) Hypernatremia Code(s): E87.0 - HYPEROSMOLALITY AND HYPERNATREMIA (4) Urinary retention Code(s): R33.9 - RETENTION OF URINE, UNSPECIFIED (5) SILVESTRE (acute kidney injury) Code(s): N17.9 - ACUTE KIDNEY FAILURE, UNSPECIFIED Assessment/Plan Current Medications Generic Name Dose Route Start Last Admin Trade Name Vinnieq PRN Reason Stop Dose Admin Atorvastatin Calcium 10 mg 04/13/17 22:00 04/17/17 21:27 Lipitor - PO 10 mg HS [facility] Administration Dextrose 1,000 mls @ 42 mls/hr 04/15/17 12:30 04/18/17 09:13 D5w - IV 42 mls/hr Q23H [facility] Administration Polyethylene Glycol 17 gm 04/17/17 10:00 04/18/17 11:43 Miralax (For Daily Use) - PO 17 gm DAILY [facility] Administration Tamsulosin HCl 0.4 mg 04/11/17 08:30 04/18/17 10:46 Flomax - PO 0.4 mg DAILY@0830 [facility] Administration Impression 1. SILVESTRE 2. hypernatremia 3. TIA 4. CVA 5. DM 6. chol 7. obstructive uropathy Plan - check bladder scan - repeat labs in am - if pvr is high he will need a godinez - sodium stable - cont flomax Dr Hua
[2017-04-18] MEDS: ATORVASTATIN CA 10 MG TABLET (FP) PO SCH (22:28)
[2017-04-19 08:53] LABS: ANION GAP 8 (8-16); BLOOD UREA NITROGEN 25 mg/dL (7-18); CALCIUM 7.1 mg/dL (8.5-10.1); CHLORIDE 104 mmol/L (98-107); CO2 24 mmol/L (21-32); CREATININE 1.9 mg/dL (0.7-1.3); GLUCOSE,RANDOM 85 mg/dL (74-106); POTASSIUM 4.4 mmol/L (3.5-5.1); SODIUM 136 mmol/L (136-145)
[2017-04-19] MEDS: TAMSULOSIN HCL 0.4 MG CAP.ER.24H (FP) PO SCH (10:21)
[2017-04-19] MEDS: POLYETHYLENE GLYCOL 3350 119 GM BTL PO SCH (10:22)
[2017-04-19] MEDS: DEXTROSE 5%-WATER - 1,000 ML IV SCH (11:43)
--- NOTE | 2017-04-19 13:41 | PN ---
Progress Note, Physician Chief Complaint: ASLEEP IN BED NAD - Current Medication List Current Medications: Active Medications Atorvastatin Calcium (Lipitor -) 10 mg PO HS [facility] Last Admin: 04/18/17 22:28 Dose: 10 mg Dextrose (D5w -) 1,000 mls @ 42 mls/hr IV Q23H [facility] Last Admin: 04/19/17 11:43 Dose: 42 mls/hr Polyethylene Glycol (Miralax (For Daily Use) -) 17 gm PO DAILY [facility] Last Admin: 04/19/17 10:22 Dose: 17 gm Tamsulosin HCl (Flomax -) 0.4 mg PO DAILY@0830 [facility] Last Admin: 04/19/17 10:21 Dose: 0.4 mg - Objective Vital Signs: Vital Signs Temperature 98.9 F 04/19/17 10:00 Pulse Rate 85 04/19/17 10:00 Respiratory Rate 20 04/19/17 10:00 Blood Pressure 142/78 04/19/17 10:00 O2 Sat by Pulse Oximetry (%) 100 04/18/17 21:00 Constitutional: Yes: No Distress Eyes: Yes: WNL, Occular Prosthesis Neck: Yes: WNL Cardiovascular: Yes: WNL Respiratory: Yes: WNL Gastrointestinal: Yes: WNL Genitourinary: Yes: Incontinence Musculoskeletal: Yes: Muscle Weakness Extremities: Yes: WNL Edema: No Peripheral Pulses WNL: Yes Integumentary: Yes: WNL Wound/Incision: Yes: Clean/Dry Neurological: Yes: Pre-Existing Deficit ...Motor Strength: WNL Psychiatric: Yes: WNL Labs: CBC, BMP 04/18/17 07:00 04/19/17 08:00 INR, PTT INR 1.06 (0.82-1.09) 04/09/17 16:46 Problem List - Problems (1) Altered mental status Code(s): R41.82 - ALTERED MENTAL STATUS, UNSPECIFIED (2) Diarrhea Code(s): R19.7 - DIARRHEA, UNSPECIFIED (3) Hematuria Code(s): R31.9 - HEMATURIA, UNSPECIFIED Qualifiers: Hematuria type: gross Qualified Code(s): R31.0 - Gross hematuria (4) Hydronephrosis Code(s): N13.30 - UNSPECIFIED HYDRONEPHROSIS Qualifiers: Hydronephrosis type: other Qualified Code(s): N13.39 - Other hydronephrosis (5) Hypernatremia Code(s): E87.0 - HYPEROSMOLALITY AND HYPERNATREMIA (6) Slurred speech Code(s): R47.81 - SLURRED SPEECH (7) Thrombocytopenia Code(s): D69.6 - THROMBOCYTOPENIA, UNSPECIFIED (8) Urinary retention Code(s): R33.9 - RETENTION OF URINE, UNSPECIFIED Assessment/Plan MONITOR RENAL FUNCTION CHECK LABS OOV TO CHAIR PT SNF IVF
--- NOTE | 2017-04-19 18:12 | PN ---
Progress Note, Physician History of Present Illness: Pt seen and examined at bedside. He denies shortness of breath. - Current Medication List Current Medications: Active Medications Atorvastatin Calcium (Lipitor -) 10 mg PO HS [facility] Last Admin: 04/18/17 22:28 Dose: 10 mg Polyethylene Glycol (Miralax (For Daily Use) -) 17 gm PO DAILY [facility] Last Admin: 04/19/17 10:22 Dose: 17 gm Tamsulosin HCl (Flomax -) 0.4 mg PO DAILY@0830 [facility] Last Admin: 04/19/17 10:21 Dose: 0.4 mg - Objective Vital Signs: Vital Signs Temperature 98.2 F 04/19/17 14:43 Pulse Rate 88 04/19/17 14:43 Respiratory Rate 24 04/19/17 14:43 Blood Pressure 122/51 04/19/17 14:43 O2 Sat by Pulse Oximetry (%) 100 04/19/17 09:00 Constitutional: Yes: Calm Eyes: Yes: Conjunctiva Clear HENT: Yes: Atraumatic Neck: Yes: Supple Cardiovascular: Yes: S1, S2 Respiratory: Yes: CTA Bilaterally Gastrointestinal: Yes: Soft Genitourinary: Yes: Canas Present Musculoskeletal: Yes: Muscle Weakness Edema: No Neurological: Yes: Confusion Labs: CBC, BMP 04/18/17 07:00 04/19/17 08:00 INR, PTT INR 1.06 (0.82-1.09) 04/09/17 16:46 Problem List - Problems (1) Altered mental status Code(s): R41.82 - ALTERED MENTAL STATUS, UNSPECIFIED (2) Hydronephrosis Code(s): N13.30 - UNSPECIFIED HYDRONEPHROSIS Qualifiers: Hydronephrosis type: other Qualified Code(s): N13.39 - Other hydronephrosis (3) Hypernatremia Code(s): E87.0 - HYPEROSMOLALITY AND HYPERNATREMIA (4) Urinary retention Code(s): R33.9 - RETENTION OF URINE, UNSPECIFIED (5) SILVESTRE (acute kidney injury) Code(s): N17.9 - ACUTE KIDNEY FAILURE, UNSPECIFIED Assessment/Plan Current Medications Generic Name Dose Route Start Last Admin Trade Name Freq PRN Reason Stop Dose Admin Atorvastatin Calcium 10 mg 04/13/17 22:00 04/18/17 22:28 Lipitor - PO 10 mg HS [facility] Administration Polyethylene Glycol 17 gm 04/17/17 10:00 04/19/17 10:22 Miralax (For Daily Use) - PO 17 gm DAILY [facility] Administration Tamsulosin HCl 0.4 mg 04/11/17 08:30 04/19/17 10:21 Flomax - PO 0.4 mg DAILY@0830 [facility] Administration Impression 1. SILVESTRE 2. hypernatremia 3. TIA 4. CVA 5. DM 6. chol 7. obstructive uropathy Plan - renal function improved today - monitor urine output - urology follow up - sodium is stable - cont flomax Dr Hua
[2017-04-20] MEDS: ATORVASTATIN CA 10 MG TABLET (FP) PO SCH ×2 (00:20→21:00)
[2017-04-20] MEDS: TAMSULOSIN HCL 0.4 MG CAP.ER.24H (FP) PO SCH (09:45)
[2017-04-20] MEDS: POLYETHYLENE GLYCOL 3350 119 GM BTL PO SCH (09:45)
--- NOTE | 2017-04-20 11:02 | PN ---
Progress Note, Physician Chief Complaint: awake in bed will get urology FU today with regards to godinez bmp ordered - Current Medication List Current Medications: Active Medications Atorvastatin Calcium (Lipitor -) 10 mg PO [facility] Last Admin: 04/20/17 00:20 Dose: 10 mg Polyethylene Glycol (Miralax (For Daily Use) -) 17 gm PO DAILY [facility] Last Admin: 04/20/17 09:45 Dose: 17 gm Tamsulosin HCl (Flomax -) 0.4 mg PO DAILY@0830 [facility] Last Admin: 04/20/17 09:45 Dose: 0.4 mg - Objective Vital Signs: Vital Signs Temperature 98 F 04/20/17 10:00 Pulse Rate 84 04/20/17 10:00 Respiratory Rate 20 04/20/17 10:00 Blood Pressure 119/62 04/20/17 10:00 O2 Sat by Pulse Oximetry (%) 100 04/20/17 09:00 Constitutional: Yes: Calm Cardiovascular: Yes: Regular Rate and Rhythm, S1, S2 Respiratory: Yes: CTA Bilaterally Gastrointestinal: Yes: Normal Bowel Sounds, Soft Genitourinary: Yes: Godinez Present Edema: No Labs: CBC, BMP 04/18/17 07:00 04/19/17 08:00 INR, PTT INR 1.06 (0.82-1.09) 04/09/17 16:46 Problem List - Problems (1) Urinary retention Assessment/Plan: flomax godinez cath was removed failed the trial of voiding will get urology to see patient again urology FU Code(s): R33.9 - RETENTION OF URINE, UNSPECIFIED (2) Thrombocytopenia Assessment/Plan: heme on board platelet count is trending upwards Code(s): D69.6 - THROMBOCYTOPENIA, UNSPECIFIED (3) Hypernatremia Assessment/Plan: sodium is normal Code(s): E87.0 - HYPEROSMOLALITY AND HYPERNATREMIA (4) SILVESTRE (acute kidney injury) Assessment/Plan: urology consult noted flomax godinez cath to be removed today-trial of voiding iv fluids creatinine down to 2.0 trending down Code(s): N17.9 - ACUTE KIDNEY FAILURE, UNSPECIFIED (5) Slurred speech Assessment/Plan: dvt ppx tomy svetlana eval- MBS done carotid doppler noted will get vascular evaluation neurology on board lipid panel asa and statin Patient will not cooperatve with PT and has big family support they will take him home and walk him and bathe him (6) Diarrhea Assessment/Plan: stool sent c dif negative Microbiology 04/09/17 00:30 Stool Clostridium difficile Antigen (ELZBIETA) - Final 04/09/17 00:30 Stool Escherichia coli 0157 Culture - Final NO GROWTH OF SALMONELLA OR SHIGELLA SPECIES OBTAINED NO GROWTH OF CAMPYLOBACTER SPECIES OBTAINED NO GROWTH OF YERSINIA SPECIES OBTAINED NO GROWTH OF VIBRIO SPECIES OBTAINED NO GROWTH OF E COLI 0157 OBTAINED Code(s): R19.7 - DIARRHEA, UNSPECIFIED Assessment/Plan urology FU for failed trial of voiding
[2017-04-20 12:07] LABS: ANION GAP 7 (8-16); BLOOD UREA NITROGEN 25 mg/dL (7-18); CALCIUM 7.7 mg/dL (8.5-10.1); CHLORIDE 105 mmol/L (98-107); CO2 28 mmol/L (21-32); CREATININE 1.9 mg/dL (0.7-1.3); GLUCOSE,RANDOM 105 mg/dL (74-106); POTASSIUM 4.1 mmol/L (3.5-5.1); SODIUM 140 mmol/L (136-145)
--- NOTE | 2017-04-20 13:41 | PN ---
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 RD f/u regarding family education. Pt would benefit from home care swallowing tx. Selected Entries 04/19/17 04/19/17 04/19/17 02:06 06:00 09:21 Breakfast 50% Lunch Supper Temperature 99.4 F 98.4 F 04/19/17 04/19/17 04/19/17 10:00 14:43 18:00 Breakfast Lunch 50% Supper Temperature 98.9 F 98.2 F 98.9 F 04/19/17 04/20/17 04/20/17 20:05 02:16 06:51 Breakfast Lunch Supper 75% Temperature 98.6 F 98.4 F 04/20/17 10:00 Breakfast Lunch Supper Temperature 98 F
--- NOTE | 2017-04-20 18:24 | PN ---
Progress Note, Physician History of Present Illness: Pt seen and examined at bedside. No great change overnight. Godinez in place and he is making urine. - Current Medication List Current Medications: Active Medications Atorvastatin Calcium (Lipitor -) 10 mg PO HS [facility] Last Admin: 04/20/17 00:20 Dose: 10 mg Polyethylene Glycol (Miralax (For Daily Use) -) 17 gm PO DAILY [facility] Last Admin: 04/20/17 09:45 Dose: 17 gm Tamsulosin HCl (Flomax -) 0.4 mg PO DAILY@0830 [facility] Last Admin: 04/20/17 09:45 Dose: 0.4 mg - Objective Vital Signs: Vital Signs Temperature 98.9 F 04/20/17 14:38 Pulse Rate 75 04/20/17 14:38 Respiratory Rate 18 04/20/17 14:38 Blood Pressure 117/54 04/20/17 14:38 O2 Sat by Pulse Oximetry (%) 100 04/20/17 09:00 Constitutional: Yes: Calm Eyes: Yes: Conjunctiva Clear HENT: Yes: Atraumatic Cardiovascular: Yes: S1, S2 Respiratory: Yes: CTA Bilaterally Gastrointestinal: Yes: Soft Genitourinary: Yes: Godinez Present Musculoskeletal: Yes: Muscle Weakness Edema: No Neurological: Yes: Lethargy Labs: CBC, BMP 04/18/17 07:00 04/20/17 11:29 INR, PTT INR 1.06 (0.82-1.09) 04/09/17 16:46 Problem List - Problems (1) Altered mental status Code(s): R41.82 - ALTERED MENTAL STATUS, UNSPECIFIED (2) Hydronephrosis Code(s): N13.30 - UNSPECIFIED HYDRONEPHROSIS Qualifiers: Hydronephrosis type: other Qualified Code(s): N13.39 - Other hydronephrosis (3) Hypernatremia Code(s): E87.0 - HYPEROSMOLALITY AND HYPERNATREMIA (4) Urinary retention Code(s): R33.9 - RETENTION OF URINE, UNSPECIFIED (5) SILVESTRE (acute kidney injury) Code(s): N17.9 - ACUTE KIDNEY FAILURE, UNSPECIFIED Assessment/Plan Current Medications Generic Name Dose Route Start Last Admin Trade Name Freq PRN Reason Stop Dose Admin Atorvastatin Calcium 10 mg 04/13/17 22:00 04/20/17 00:20 Lipitor - PO 10 mg HS [facility] Administration Polyethylene Glycol 17 gm 04/17/17 10:00 04/20/17 09:45 Miralax (For Daily Use) - PO 17 gm DAILY [facility] Administration Tamsulosin HCl 0.4 mg 04/11/17 08:30 04/20/17 09:45 Flomax - PO 0.4 mg DAILY@0830 [facility] Administration Impression 1. SILVESTRE 2. hypernatremia 3. TIA 4. CVA 5. DM 6. chol 7. obstructive uropathy 8. urinary retention - godinez in place. failed voiding trail Plan - godinez in place - urology follow up - monitor renal function - outpt workup - sodium is stable - cont flomax Dr Hua
[2017-04-21] MEDS: TAMSULOSIN HCL 0.4 MG CAP.ER.24H (FP) PO SCH (08:41)
[2017-04-21] MEDS: POLYETHYLENE GLYCOL 3350 119 GM BTL PO SCH (10:17)
--- NOTE | 2017-04-21 12:03 | PN ---
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 RD f/u regarding family education. Pt would benefit from home care swallowing tx. Selected Entries 04/19/17 04/19/17 04/19/17 02:06 06:00 09:21 Breakfast 50% Lunch Supper Temperature 99.4 F 98.4 F 04/19/17 04/19/17 04/19/17 10:00 14:43 18:00 Breakfast Lunch 50% Supper Temperature 98.9 F 98.2 F 98.9 F 04/19/17 04/20/17 04/20/17 20:05 02:16 06:51 Breakfast Lunch Supper 75% Temperature 98.6 F 98.4 F 04/20/17 10:00 Breakfast Lunch Supper Temperature 98 F Selected Entries 04/20/17 04/20/17 04/20/17 02:16 06:51 10:00 Breakfast Lunch Supper Temperature 98.6 F 98.4 F 98 F 04/20/17 04/20/17 04/21/17 14:38 18:00 06:00 Breakfast 100% Lunch 100% Supper 100% Temperature 98.9 F 99.5 F 98.9 F 04/21/17 08:55 Breakfast Lunch Supper Temperature 98.8 F
--- NOTE | 2017-04-21 14:47 | PN ---
Progress Note, Physician Chief Complaint: awake confused - Current Medication List Current Medications: Active Medications Atorvastatin Calcium (Lipitor -) 10 mg PO HS [facility] Last Admin: 04/20/17 21:00 Dose: 10 mg Polyethylene Glycol (Miralax (For Daily Use) -) 17 gm PO DAILY [facility] Last Admin: 04/20/17 09:45 Dose: 17 gm Tamsulosin HCl (Flomax -) 0.4 mg PO DAILY@0830 [facility] Last Admin: 04/21/17 08:41 Dose: 0.4 mg - Objective Vital Signs: Vital Signs Temperature 98.8 F 04/21/17 08:55 Pulse Rate 73 04/21/17 08:55 Respiratory Rate 18 04/21/17 08:55 Blood Pressure 142/64 04/21/17 08:55 O2 Sat by Pulse Oximetry (%) 98 04/21/17 08:53 Constitutional: Yes: Mild Distress Eyes: Yes: WNL HENT: Yes: WNL Neck: Yes: WNL Cardiovascular: Yes: WNL Respiratory: Yes: WNL Gastrointestinal: Yes: WNL Genitourinary: Yes: Canas Present Musculoskeletal: Yes: Muscle Weakness Extremities: Yes: WNL Edema: No Integumentary: Yes: WNL Wound/Incision: Yes: Clean/Dry Neurological: Yes: WNL ...Motor Strength: WNL Psychiatric: Yes: WNL Labs: CBC, BMP 04/18/17 07:00 04/20/17 11:29 INR, PTT INR 1.06 (0.82-1.09) 04/09/17 16:46 Problem List - Problems (1) Altered mental status Code(s): R41.82 - ALTERED MENTAL STATUS, UNSPECIFIED (2) Diarrhea Code(s): R19.7 - DIARRHEA, UNSPECIFIED (3) Hematuria Code(s): R31.9 - HEMATURIA, UNSPECIFIED Qualifiers: Hematuria type: gross Qualified Code(s): R31.0 - Gross hematuria (4) Hydronephrosis Code(s): N13.30 - UNSPECIFIED HYDRONEPHROSIS Qualifiers: Hydronephrosis type: other Qualified Code(s): N13.39 - Other hydronephrosis (5) Hypernatremia Code(s): E87.0 - HYPEROSMOLALITY AND HYPERNATREMIA (6) Slurred speech Code(s): R47.81 - SLURRED SPEECH (7) Thrombocytopenia Code(s): D69.6 - THROMBOCYTOPENIA, UNSPECIFIED (8) Urinary retention Code(s): R33.9 - RETENTION OF URINE, UNSPECIFIED Assessment/Plan follow up flomax cont oob to chair snf
--- NOTE | 2017-04-21 15:03 | PN ---
Progress Note, Physician History of Present Illness: Seen and examined. No new events. - Current Medication List Current Medications: Active Medications Atorvastatin Calcium (Lipitor -) 10 mg PO HS [facility] Last Admin: 04/20/17 21:00 Dose: 10 mg Polyethylene Glycol (Miralax (For Daily Use) -) 17 gm PO DAILY [facility] Last Admin: 04/20/17 09:45 Dose: 17 gm Tamsulosin HCl (Flomax -) 0.4 mg PO DAILY@0830 [facility] Last Admin: 04/21/17 08:41 Dose: 0.4 mg - Objective Vital Signs: Vital Signs Temperature 98.8 F 04/21/17 08:55 Pulse Rate 73 04/21/17 08:55 Respiratory Rate 18 04/21/17 08:55 Blood Pressure 142/64 04/21/17 08:55 O2 Sat by Pulse Oximetry (%) 98 04/21/17 08:53 Constitutional: Yes: Calm Eyes: Yes: Conjunctiva Clear HENT: Yes: Atraumatic Cardiovascular: Yes: S1, S2 Respiratory: Yes: CTA Bilaterally Gastrointestinal: Yes: Soft Genitourinary: Yes: Godinez Present, Incontinence Musculoskeletal: Yes: Muscle Weakness Edema: No Neurological: Yes: Confusion Labs: CBC, BMP 04/18/17 07:00 04/20/17 11:29 INR, PTT INR 1.06 (0.82-1.09) 04/09/17 16:46 Problem List - Problems (1) Altered mental status Code(s): R41.82 - ALTERED MENTAL STATUS, UNSPECIFIED (2) Hydronephrosis Code(s): N13.30 - UNSPECIFIED HYDRONEPHROSIS Qualifiers: Hydronephrosis type: other Qualified Code(s): N13.39 - Other hydronephrosis (3) Hypernatremia Code(s): E87.0 - HYPEROSMOLALITY AND HYPERNATREMIA (4) Urinary retention Code(s): R33.9 - RETENTION OF URINE, UNSPECIFIED (5) SILVESTRE (acute kidney injury) Code(s): N17.9 - ACUTE KIDNEY FAILURE, UNSPECIFIED Assessment/Plan Current Medications Generic Name Dose Route Start Last Admin Trade Name Freq PRN Reason Stop Dose Admin Atorvastatin Calcium 10 mg 04/13/17 22:00 04/20/17 21:00 Lipitor - PO 10 mg HS [facility] Administration Polyethylene Glycol 17 gm 04/17/17 10:00 04/20/17 09:45 Miralax (For Daily Use) - PO 17 gm DAILY [facility] Administration Tamsulosin HCl 0.4 mg 04/11/17 08:30 04/21/17 08:41 Flomax - PO 0.4 mg DAILY@0830 [facility] Administration Impression 1. SILVESTRE 2. hypernatremia 3. TIA 4. CVA 5. DM 6. chol 7. obstructive uropathy 8. urinary retention - godinez in place. failed voiding trail Plan - no new labs - urology follow up - monitor renal function - outpt workup - sodium is stable - cont flomax Dr Hua
[2017-04-21] MEDS: ATORVASTATIN CA 10 MG TABLET (FP) PO SCH (21:09)
[2017-04-22 00:11] LABS: TOTAL PROTEIN, URINE 458.6 mg/dL (Not Estab.)
[2017-04-22 07:42] LABS: HEMATOCRIT 28.1 % (35.4-49); HEMOGLOBIN 9.1 GM/dL (11.7-16.9); MCH 32.2 pg (25.7-33.7); MCHC 32.6 g/dl (32.0-35.9); MEAN CELL VOLUME 98.6 fl (80-96); MEAN PLT VOLUME 10.6 fl (7.5-11.1); PLATELET COUNT 141 K/MM3 (134-434); RBC 2.85 M/mm3 (4.00-5.60); RDW 17.6 % (11.9-15.9); WHITE BLOOD COUNT 7.3 K/mm3 (4.0-10.0)
[2017-04-22 08:56] LABS: BLOOD UREA NITROGEN 27 mg/dL (7-18); CHLORIDE 106 mmol/L (98-107); CREATININE 1.6 mg/dL (0.7-1.3); GLUCOSE,RANDOM 75 mg/dL (74-106); POTASSIUM 4.3 mmol/L (3.5-5.1); SODIUM 139 mmol/L (136-145)
[2017-04-22 08:57] LABS: ANION GAP 8 (8-16); CALCIUM 7.3 mg/dL (8.5-10.1); CO2 25 mmol/L (21-32)
[2017-04-22] MEDS: TAMSULOSIN HCL 0.4 MG CAP.ER.24H (FP) PO SCH (09:54)
[2017-04-22] MEDS: POLYETHYLENE GLYCOL 3350 119 GM BTL PO SCH ×2 (10:02→10:24)
--- NOTE | 2017-04-22 11:56 | PN ---
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 -godinez catheter -seen by nad nephrology -doesn't respond to verbal stimuli, pulls hands on touch, moves feet/legs on examination - Current Medication List Current Medications: Active Medications Atorvastatin Calcium (Lipitor -) 10 mg PO HS [facility] Last Admin: 04/21/17 21:09 Dose: 10 mg Polyethylene Glycol (Miralax (For Daily Use) -) 17 gm PO DAILY [facility] Last Admin: 04/22/17 10:24 Dose: 17 gm Tamsulosin HCl (Flomax -) 0.4 mg PO DAILY@0830 [facility] Last Admin: 04/22/17 09:54 Dose: 0.4 mg - Objective Vital Signs: Vital Signs Temperature 99.0 F 04/22/17 06:00 Pulse Rate 70 04/22/17 06:00 Respiratory Rate 20 04/22/17 06:00 Blood Pressure 123/55 04/22/17 06:00 O2 Sat by Pulse Oximetry (%) 98 04/21/17 21:00 Constitutional: Yes: Well Nourished, No Distress, Calm Cardiovascular: Yes: Regular Rate and Rhythm Respiratory: Yes: Regular Gastrointestinal: Yes: Normal Bowel Sounds, Soft Genitourinary: Yes: Godinez Present Musculoskeletal: Yes: WNL Extremities: Yes: WNL Edema: No Peripheral Pulses WNL: Yes Neurological: Yes: Alert, Pre-Existing Deficit Psychiatric: Yes: Alert Labs: CBC, BMP 04/22/17 07:20 04/22/17 07:20 INR, PTT INR 1.06 (0.82-1.09) 04/09/17 16:46 Problem List - Problems (1) Diarrhea Assessment/Plan: check stool for ob and O&P -cdiff, culture negative -GI consult Code(s): R19.7 - DIARRHEA, UNSPECIFIED (2) Hematuria Assessment/Plan: -likely 2/2 to trauma during godinez insertion -improved -seen by -maintain godinez for now -h/h stable -scd's in place Code(s): R31.9 - HEMATURIA, UNSPECIFIED Qualifiers: Hematuria type: gross Qualified Code(s): R31.0 - Gross hematuria (3) Hypernatremia Assessment/Plan: -seen by nephrology -godinez Code(s): E87.0 - HYPEROSMOLALITY AND HYPERNATREMIA (4) Anemia Assessment/Plan: -Vit B 12? -h/h stable Code(s): D64.9 - ANEMIA, UNSPECIFIED Qualifiers: Anemia type: B12 deficiency (5) Altered mental status Assessment/Plan: -MRI/CT head negative -could be 2/2 to dehydration due to decreased PO intake or vit B 12 def leading to neuropsychiatric symptoms Code(s): R41.82 - ALTERED MENTAL STATUS, UNSPECIFIED (6) Urinary retention Assessment/Plan: -Godinez -seen by , outpatient f/u -Tamsulosin Code(s): R33.9 - RETENTION OF URINE, UNSPECIFIED
--- NOTE | 2017-04-22 11:59 | PN ---
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 RD f/u regarding family education. Pt would benefit from home care swallowing tx. Selected Entries 04/19/17 04/19/17 04/19/17 02:06 06:00 09:21 Breakfast 50% Lunch Supper Temperature 99.4 F 98.4 F 04/19/17 04/19/17 04/19/17 10:00 14:43 18:00 Breakfast Lunch 50% Supper Temperature 98.9 F 98.2 F 98.9 F 04/19/17 04/20/17 04/20/17 20:05 02:16 06:51 Breakfast Lunch Supper 75% Temperature 98.6 F 98.4 F 04/20/17 10:00 Breakfast Lunch Supper Temperature 98 F Selected Entries 04/20/17 04/20/17 04/20/17 02:16 06:51 10:00 Breakfast Lunch Supper Temperature 98.6 F 98.4 F 98 F 04/20/17 04/20/17 04/21/17 14:38 18:00 06:00 Breakfast 100% Lunch 100% Supper 100% Temperature 98.9 F 99.5 F 98.9 F 04/21/17 08:55 Breakfast Lunch Supper Temperature 98.8 F Selected Entries 04/21/17 04/21/17 04/21/17 06:00 08:55 15:14 Breakfast 75% Lunch 75% Supper Temperature 98.9 F 98.8 F 99.4 F 04/21/17 04/22/17 04/22/17 18:05 06:00 11:03 Breakfast 75% Lunch Supper 75% Temperature 97.8 F 99.0 F Laboratory Tests 04/22/17 07:20 WBC 7.3
--- NOTE | 2017-04-22 12:55 | PN ---
Progress Note, Physician History of Present Illness: Pt seen and examined at bedside. He is awake and appears comfortable. Family at bedside and care was discussed with them. - Current Medication List Current Medications: Active Medications Atorvastatin Calcium (Lipitor -) 10 mg PO [facility] Last Admin: 04/21/17 21:09 Dose: 10 mg Polyethylene Glycol (Miralax (For Daily Use) -) 17 gm PO DAILY [facility] Last Admin: 04/22/17 10:24 Dose: 17 gm Tamsulosin HCl (Flomax -) 0.4 mg PO DAILY@0830 [facility] Last Admin: 04/22/17 09:54 Dose: 0.4 mg - Objective Vital Signs: Vital Signs Temperature 99.0 F 04/22/17 06:00 Pulse Rate 70 04/22/17 06:00 Respiratory Rate 20 04/22/17 06:00 Blood Pressure 123/55 04/22/17 06:00 O2 Sat by Pulse Oximetry (%) 98 04/21/17 21:00 Constitutional: Yes: Calm Eyes: Yes: Conjunctiva Clear HENT: Yes: Atraumatic Cardiovascular: Yes: S1, S2 Respiratory: Yes: CTA Bilaterally Gastrointestinal: Yes: Soft Genitourinary: Yes: Godinez Present Edema: No Neurological: Yes: Pre-Existing Deficit Labs: CBC, BMP 04/22/17 07:20 04/22/17 07:20 INR, PTT INR 1.06 (0.82-1.09) 04/09/17 16:46 Problem List - Problems (1) Altered mental status Code(s): R41.82 - ALTERED MENTAL STATUS, UNSPECIFIED (2) Hydronephrosis Code(s): N13.30 - UNSPECIFIED HYDRONEPHROSIS Qualifiers: Hydronephrosis type: other Qualified Code(s): N13.39 - Other hydronephrosis (3) Hypernatremia Code(s): E87.0 - HYPEROSMOLALITY AND HYPERNATREMIA (4) Urinary retention Code(s): R33.9 - RETENTION OF URINE, UNSPECIFIED (5) SILVESTRE (acute kidney injury) Code(s): N17.9 - ACUTE KIDNEY FAILURE, UNSPECIFIED Assessment/Plan Current Medications Generic Name Dose Route Start Last Admin Trade Name Freq PRN Reason Stop Dose Admin Atorvastatin Calcium 10 mg 04/13/17 22:00 04/21/17 21:09 Lipitor - PO 10 mg HS [facility] Administration Polyethylene Glycol 17 gm 04/17/17 10:00 04/22/17 10:24 Miralax (For Daily Use) - PO 17 gm DAILY [facility] Administration Tamsulosin HCl 0.4 mg 04/11/17 08:30 04/22/17 09:54 Flomax - PO 0.4 mg DAILY@0830 [facility] Administration Impression 1. SILVESTRE 2. hypernatremia 3. TIA 4. CVA 5. DM 6. chol 7. obstructive uropathy 8. urinary retention - godinez in place. failed voiding trail Plan - renal function stabilizing - urology follow up - discussed with daughter - can follow as outpt Dr Hua
--- NOTE | 2017-04-22 13:48 | DS ---
Physical Examination Vital Signs: Vital Signs Temperature 99.0 F 04/22/17 06:00 Pulse Rate 72 04/22/17 10:00 Respiratory Rate 18 04/22/17 10:00 Blood Pressure 116/58 04/22/17 10:00 O2 Sat by Pulse Oximetry (%) 98 04/21/17 21:00 Constitutional: Yes: Well Nourished, No Distress, Calm Cardiovascular: Yes: Regular Rate and Rhythm Respiratory: Yes: Regular Gastrointestinal: Yes: Normal Bowel Sounds, Soft Renal/: Yes: [place] Present Edema: No Peripheral Pulses WNL: Yes Neurological: Yes: Alert, Pre-Existing Deficit Psychiatric: Yes: Alert Labs: CBC, BMP 04/22/17 07:20 04/22/17 07:20 Discharge Summary Reason For Visit: AMS DIARRHEA Current Active Problems Altered mental status (Acute) Diarrhea (Acute) Hematuria (Acute) Hydronephrosis (Acute) Hypernatremia (Acute) Slurred speech (Acute) Thrombocytopenia (Acute) Urinary retention (Acute) Hospital Course: Pt is an 86 y/o M with PMH NIDDM, TIA with multiple hospital visits for possible stroke who presented to ED BIBA accompanied by family because fam noticed facial droop and slurred speech. Per records, last normal was 10am, fam noticed droop at 16:00. Pt is awake alert and oriented only to name. Per nurse, family gave conflicting reports regarding pt's baseline mental status. Pt cannot give history. In ED pt having numerous episodes of diarrhea. Note pt had a fall and had repeat head CT neg During his stay, he was evaluated by urology and Nephrology Canas was place for Urinary retention, for which he will f/u with Urology outpatient Condition: Stable - Instructions Diet, Activity, Other Instructions: Diet Consistency: Dysphagia Pureed Medication Administration: Crushed with applesauce Liquids: [place] Thick Supplement: Magic Cup Follow up outpatient with Dr Oneill (Urology) and Dr Hua (Nephrology) within 2 weeks Follow up with PCP within 2 weeks Referrals: Vinod Hua MD [Staff Physician] - Alexis Oneill MD [Staff Physician] - Disposition: VNS/HOME HEALTH CARE - Home Medications Comprehensive Discharge Medication List: Ambulatory Orders metFORMIN HCL [Glucophage -] 500 mg PO DAILY 01/02/15 Atorvastatin Ca [Lipitor] 10 mg PO HS #30 tablet 01/03/15 Cyanocobalamin [Vitamin B12 -] 1,000 mcg PO DAILY #30 tablet 01/03/15 Unobtainable 04/09/17 Atorvastatin Ca [Lipitor] 10 mg PO HS #30 tablet 04/22/17 Polyethylene Glycol 3350 [Miralax 119 gm Btl -] 17 gm PO DAILY 30 Days #1 bottle 04/22/17 Tamsulosin HCl [Flomax -] 0.4 mg PO DAILY@0830 #30 cap.er.24h 04/22/17
[2017-04-22 18:12] VITALS: BP 132/60; PULSE 77; TEMP 97.9
== END 2017-04-22 20:20 | disposition home health service (06) | DRG 682 ==
LOC: JER 16:18 → JERBED 04-10 02:42 → UNDOADMIN 04-10 02:44 → JERBED 04-10 02:44 → J5S 04-10 19:05
PROVIDERS: ADMIT Internal Medicine; ATTEND Family Medicine
DX: N17.9 Acute kidney failure, unspecified (principal); G93.41 Metabolic encephalopathy; E46 Unspecified protein-calorie malnutrition; R64 Cachexia; N13.30 Unspecified hydronephrosis; R19.7 Diarrhea, unspecified; K76.0 Fatty (change of) liver, not elsewhere classified; R41.82 Altered mental status, unspecified; R31.9 Hematuria, unspecified; R33.9 Retention of urine, unspecified; E11.9 Type 2 diabetes mellitus without complications; E78.5 Hyperlipidemia, unspecified; D69.59 Other secondary thrombocytopenia; N13.9 Obstructive and reflux uropathy, unspecified; E86.0 Dehydration; G30.9 Alzheimer's disease, unspecified; F02.80 Dementia in other diseases classified elsewhere, unspecified severity, without behavioral disturbance, psychotic disturbance, mood disturbance, and anxiety; Z68.25 Body mass index [BMI] 25.0-25.9, adult
CPT/HCPCS: 36415; 70450-TC; 70551-TC; 71045-TC; 74230-TC-FY; 76705-TC; 76775-TC; 76856-TC; 80048; 80053; 81003; 81015; 82465; 82550; 82607; 82728; 82746; 82747; 82784; 82962; 82977; 83036; 83540; 83550; 83718; 83721; 83930; 83935; 84100; 84155; 84156; 84157; 84165; 84439; 84443; 84478; 84484; 85014; 85025; 85027; 85610; 86334; 87040; 87045; 87046; 87086; 87324; 87449; 92611-GN; 93005; 93010; 93306-TC; 93880-TC; 97116-GP; 97161-GP; 99285-25; J1644; J1756

== ENCOUNTER 2017-08-26 06:30 | Inpatient (IN) | payer OTHER ==
[~2017-08-26 06:30] MED LIST: ETOMIDATE 20 MG/10 ML AMPUL IVPUSH ONE
--- NOTE | 2017-08-26 06:31 | PDOC ---
History of Present Illness - General History Source: EMS - History of Present Illness Initial Comments: 08/26/17 06:58 The patient is a 87 year old male with past medical history of diabetes, BPH and high cholesterol BIBA from home s/p family reporting unconscious male. The patient presents to the ED unresponsive, unkempt, soiled w/ godinez leg bag connected w/ hematuria noted. The patients blood sugar level was unknown at presentation. Due to the history of diabetes, enroute to the ED the EMS checked the patients blood sugar level, the machine registered it to be out of range. En route, the patient was given 2 bags of 250 D 10 and bagged secondary to abnormal breathing. At the ED, the patient was bagged, suctioned and given 30 mg of etomidate. The patients blood glucose level at the ED was 174. <Marisa Wall - Last Filed: 08/26/17 06:59> - General History Source: Patient <Eduardo peñaloza - Last Filed: 08/26/17 19:27> - General Stated Complaint: RESPIRATORY ARREST Time Seen by Provider: 08/26/17 06:31 Past History <Marisa Wall - Last Filed: 08/26/17 06:59> - Past Medical History COPD: No Diabetes: Yes HTN: Yes - Suicide/Smoking/Psychosocial Hx Smoking History: Never smoked Have you smoked in the past 12 months: No Hx Alcohol Use: No Drug/Substance Use Hx: No Substance Use Type: None Hx Substance Use Treatment: No <Eduardo Fraire - Last Filed: 08/26/17 19:27> - Past Medical History Allergies/Adverse Reactions: Allergies Allergy/AdvReac Type Severity Reaction Status Date / Time No Known Allergies Allergy Verified 08/26/17 06:51 Home Medications: Ambulatory Orders metFORMIN HCL [Glucophage -] 500 mg PO DAILY 01/02/15 Atorvastatin Ca [Lipitor] 10 mg PO HS #30 tablet 01/03/15 Cyanocobalamin [Vitamin B12 -] 1,000 mcg PO DAILY #30 tablet 01/03/15 Unobtainable 04/09/17 Atorvastatin Ca [Lipitor] 10 mg PO HS #30 tablet 04/22/17 Polyethylene Glycol 3350 [Miralax 119 gm Btl -] 17 gm PO DAILY 30 Days #1 bottle 04/22/17 Tamsulosin HCl [Flomax -] 0.4 mg PO DAILY@0830 #30 cap.er.24h 04/22/17 Review of Systems - Review of Systems Comments:: 08/26/17 06:57 As per the EMS report, CONSTITUTIONAL: Unresponsive. Absent: fever, chills, diaphoresis, generalized weakness, HEENT: Absent: rhinorrhea, nasal congestion, throat pain, throat swelling, difficulty swallowing, mouth swelling, ear pain, eye pain, visual Changes CARDIOVASCULAR: Absent: chest pain, syncope, palpitations, irregular heart rate, lightheadedness , peripheral edema RESPIRATORY: Abnormal breathing. Absent: cough, shortness of breath, dyspnea with exertion, orthopnea, wheezing, stridor, hemoptysis GASTROINTESTINAL: Absent: abdominal pain, abdominal distension, nausea, vomiting, diarrhea, constipation, melena, hematochezia GENITOURINARY: Absent: dysuria, frequency, urgency, hesitancy, hematuria, flank pain, genital pain MUSCULOSKELETAL: Absent: myalgia, arthralgia, joint swelling SKIN: Absent: rash, itching, pallor HEMATOLOGIC/IMMUNOLOGIC: Absent: easy bleeding, easy bruising, lymphadenopathy, frequent infections ENDOCRINE: Absent: unexplained weight gain, unexplained weight loss, heat intolerance, cold intolerance NEUROLOGIC: Absent: headache, focal weakness or paresthesias, dizziness, unsteady gait, seizure, mental status changes, bladder or bowel incontinence <Marisa Wall - Last Filed: 08/26/17 06:59> *Physical Exam - Vital Signs Last Vital Signs Temp Pulse Resp BP Pulse Ox 100.7 F H 128 H 4 L 98/41 74 L 08/26/17 06:30 08/26/17 06:30 08/26/17 06:30 08/26/17 06:30 08/26/17 06:30 - Physical Exam Comments: 08/26/17 06:53 GENERAL:(+) Patient is unresponsive w/ abnormal breathing. HEENT: Normocephalic, atraumatic. PERRLA, EOMI. No conjunctival pallor. Sclera are non- icteric. Moist mucous membranes. Oropharynx is clear. NECK: Supple. Full ROM. No JVD. Carotid pulses 2+ and symmetric, without bruits. No thyromegaly. No lymphadenopathy. CARDIOVASCULAR: Regular rate and rhythm. No murmurs, rubs, or gallops. Distal pulses are 2+ and symmetric. PULMONARY: Abnormal breathing. (+) Bilateral rhonchi No wheezing, rales. ABDOMINAL: Soft. Non-tender. Non-distended. No rebound or guarding. No organomegaly. Normoactive bowel sounds. MUSCULOSKELETAL Normal range of motion at all joints. No bony deformities or tenderness. EXTREMITIES: No cyanosis. No clubbing. No edema. No calf tenderness. SKIN: Warm and dry. Normal capillary refill. No rashes. No jaundice. NEUROLOGICAL: Unresponsive PSYCHIATRIC: Unresponsive <Marisa Wall - Last Filed: 08/26/17 06:59> Procedures - Intubation Time of Intubation: 06:30 Intubation Method: nasotracheal Blade used: Mac Tube Size (Fr): 7.5 Medications: Etomidate Tube position @ lip (cm): 22 Tube position confirmed by: Direct visualization, CO2 detector, Chest x-ray, Breath sounds Breath Sounds after Intubation: equal Intubation Complications: no complications Post Intubation Xray: Yes <Eduardo Fraire - Last Filed: 08/26/17 19:27> ED Treatment Course - ADDITIONAL ORDERS Additional order review: Laboratory Results 08/26/17 06:36 POC Glucometer 174.73733 08/26/17 06:36 POC Glucometer 174.69657 <Marisa Wall - Last Filed: 08/26/17 06:59> - LABORATORY CBC & Chemistry Diagram: 08/26/17 15:00 08/26/17 15:00 <Eduardo Fraire - Last Filed: 08/26/17 19:27> Medical Decision Making - Medical Decision Making 08/26/17 19:26 Dr. Fraire: The scribe's documentation has been prepared under my direction and personally reviewed by me in its entirery. I confirm that the note above accurately reflects all work, treatment, procedures, and medical decision making performed by me. <Eduardo Fraire - Last Filed: 08/26/17 19:27> *DC/Admit/Observation/Transfer - Attestations Scribe Attestion: 08/26/17 06:58 Documentation prepared by Marisa Wall, acting as medical legal investigator for Eduardo Fraire MD. <Marisa Wall - Last Filed: 08/26/17 06:59> <Eduardo Fraire - Last Filed: 08/26/17 19:27> Diagnosis at time of Disposition: Septic shock - Discharge Dispostion Condition at time of disposition: Guarded
[2017-08-26] MEDS ORDERED: ROCURONIUM BROMIDE 50 MG/5 ML VIAL IV ONE ×3 (06:39→06:43)
[2017-08-26] MEDS ORDERED: SODIUM CHLORIDE 1,000 ML IV STA ×4 (06:39→07:49)
[2017-08-26] MEDS ORDERED: ACETAMINOPHEN 1000 MG/100 ML VIAL (NON FORMULARY) IVPB ONE (06:56)
[2017-08-26] MEDS ORDERED: ACETAMINOPHEN INJECTION 100 ML IVPB ONE ×2 (06:57→07:32)
[2017-08-26] MEDS ORDERED: VANCOMYCIN 1,250 MG in DEXTROSE 5%-WATER - 250 ML IVPB ONE (07:08)
[2017-08-26] MEDS ORDERED: PIPERACILLIN/TAZOB 4.5 GM 4.5 GM in DEXTROSE 5%-WATER 100 ML IVPB ONE (07:08)
[2017-08-26 07:20] LABS: BASO % 0.2 % (0-2.0); EOS % 0.5 % (0-4.5); HEMATOCRIT 32.9 % (35.4-49); HEMOGLOBIN 10.1 GM/dL (11.7-16.9); LYMPH % 22.4 % (8-40); MCH 28.2 pg (25.7-33.7); MCHC 30.8 g/dl (32.0-35.9); MEAN CELL VOLUME 91.5 fl (80-96); MEAN PLT VOLUME 9.6 fl (7.5-11.1); MONO % 0.8 % (3.8-10.2); NEUT % 76.1 % (42.8-82.8); PLATELET COUNT 77 K/MM3 (134-434); RBC 3.59 M/mm3 (4.00-5.60); RDW 16.1 % (11.9-15.9)
[2017-08-26 07:31] LABS: URINE BILIRUBIN NEGATIVE (<2.0 mg/dL); URINE GLUCOSE (UA) 1+ (NEGATIVE); URINE KETONE TRACE (NEGATIVE); URINE LEUK ESTERASE NEGATIVE (NEGATIVE); URINE NITRITE NEGATIVE (NEGATIVE); URINE UROBILINOGEN NEGATIVE mg/dL (0.2-1.0)
[2017-08-26 07:32] LABS: VENOUS PC02 37.3 mmHg (38-52)
[2017-08-26] MEDS ORDERED: PIPERACILLIN/TAZOB 4.5 GM 4.5 GM/100 ML BAG IVPB ONE (07:32)
[2017-08-26 07:34] LABS: URINE APPEARANCE BLOODY; URINE COLOR RED; URINE PROTEIN 2+ (NEGATIVE)
[2017-08-26 07:44] LABS: INR 2.76 (0.82-1.09); PROTHROMBIN TIME (PATIENT) 31.2 SEC (9.7-13.0)
[2017-08-26 07:56] LABS: ALBUMIN 1.9 g/dl (3.4-5.0); ANION GAP 26 (8-16); BLOOD UREA NITROGEN 22 mg/dL (7-18); CHLORIDE 103 mmol/L (98-107); CO2 11 mmol/L (21-32); CREATININE 2.3 mg/dL (0.7-1.3); GLUCOSE,RANDOM 235 mg/dL (74-106); POTASSIUM 3.6 mmol/L (3.5-5.1); SGOT/AST 63 U/L (15-37); SGPT/ALT 28 U/L (12-78); SODIUM 140 mmol/L (136-145); TOT PROT 5.5 g/dl (6.4-8.2)
[2017-08-26 07:58] LABS: ALK PHOS 256 U/L (45-117)
[2017-08-26 08:13] LABS: ACTIVATED PTT 112.8 SECONDS (26.9-34.4)
[2017-08-26 08:14] LABS: URINE BACTERIA MODERATE /hpf (NONE SEEN)
[2017-08-26] MEDS ORDERED: PHYTONADIONE 10 MG/1 ML AMP IVPB ONE (08:19)
[2017-08-26] MEDS ORDERED: SODIUM BICARBONATE 4.2% 5 MEQ/10 ML DISP.SYRIN IVPUSH ONE ×2 (08:20→08:21)
[2017-08-26] MEDS ORDERED: PHYTONADIONE 10 MG/1 ML AMP ONE (08:28)
--- NOTE | 2017-08-26 08:28 | PDOC ---
*Physical Exam - Vital Signs Last Vital Signs Temp Pulse Resp BP Pulse Ox 97.2 F L 136 H 14 118/32 100 08/26/17 08:15 08/26/17 08:15 08/26/17 08:15 08/26/17 08:15 08/26/17 08:15 - Physical Exam Comments: 08/26/17 08:47 "GENERAL: sedated, intubated HEAD: No signs of trauma EYES: PERRLA, EOMI, sclera anicteric, conjunctiva clear ENT: Auricles normal inspection, nares patent, oropharynx clear without exudates. Moist mucosa NECK: No stepoffs, supple, no lymphadenopathy, JVD, or masses LUNGS: Vented, equal breath sounds bilaterally HEART: Regular rate and rhythm, normal S1 and S2, no murmurs, rubs or gallops ABDOMEN: No masses EXTREMITIES: No clubbing or cyanosis. No cords, erythema, or tenderness SKIN: Warm, Dry, normal turgor, no rashes or lesions noted. : + Femi hematuria, godinez in place RECTAL: + Hematochezia " Repeat PE for Septic Shock - Vital Signs Vital Signs: Vital Signs Temperature 97.2 F L 08/26/17 08:15 Pulse Rate 136 H 08/26/17 08:15 Respiratory Rate 14 08/26/17 08:15 Blood Pressure 118/32 08/26/17 08:15 O2 Sat by Pulse Oximetry (%) 100 08/26/17 08:15 I have reviewed the most recent vital signs: Yes - PE CV for Spetic Shock: Regular Rhythm Lungs: Normal Breath Sounds Vascular: Left Radial: 1+, Right Radial: 1+, Left Doralis Pedis: 1+ Capillary Refill: <3 seconds Skin exam: Warm - Impression Impression: No fluid bolus indicated, pt not hypovolemic ED Treatment Course - LABORATORY CBC & Chemistry Diagram: 08/26/17 10:04 08/26/17 10:04 - ADDITIONAL ORDERS Additional order review: Laboratory Results 08/26/17 08/26/17 08/26/17 07:10 07:10 07:03 PT with INR 31.20 H INR 2.76 H D PTT (Actin FS) 112.8 H VBG pH 7.00 L* POC VBG pCO2 37.3 L POC VBG pO2 69.0 H Mixed VBG HCO3 8.7 L* POC Glucometer Urine Color Red Urine Appearance Bloody Urine pH 7.0 Ur Specific [place] 1.015 Urine Protein 2+ H Urine Glucose (UA) 1+ H Urine Ketones Trace H Urine Blood 3+ H Urine Nitrite Negative Urine Bilirubin Negative Urine Urobilinogen Negative Ur Leukocyte Esterase Negative Urine WBC (Auto) O-2 Urine RBC (Auto) >100 Urine Bacteria Moderate 08/26/17 06:36 PT with INR INR PTT (Actin FS) VBG pH POC VBG pCO2 POC VBG pO2 Mixed VBG HCO3 POC Glucometer 174.37825 Urine Color Urine Appearance Urine pH Ur Specific [place] Urine Protein Urine Glucose (UA) Urine Ketones Urine Blood Urine Nitrite Urine Bilirubin Urine Urobilinogen Ur Leukocyte Esterase Urine WBC (Auto) Urine RBC (Auto) Urine Bacteria 08/26/17 08/26/17 07:03 06:36 RBC 3.59 L D MCV 91.5 MCHC 30.8 L RDW 16.1 H MPV 9.6 Neutrophils % 76.1 D Lymphocytes % 22.4 Monocytes % 0.8 L D Eosinophils % 0.5 D Basophils % 0.2 POC Glucometer 174.47951 - Medications Given in the ED: ED Medications Discontinued Medications Generic Name Dose Route Start Last Admin Trade Name Freq PRN Reason Stop Dose Admin Acetaminophen 1,000 mg 08/26/17 06:56 08/26/17 07:45 Ofirmev Injection - IVPB 08/26/17 06:57 1,000 mg ONCE ONE Administration Etomidate 20 mg 08/26/17 06:30 08/26/17 07:02 Amidate - IVPUSH 08/26/17 06:31 20 mg NOW ONE Administration Sodium Chloride 1,000 mls @ 1,000 mls/hr 08/26/17 06:39 08/26/17 06:40 Normal Saline - IV 08/26/17 07:38 1,000 mls/hr ASDIR STA Administration Sodium Chloride 1,000 mls @ 1,000 mls/hr 08/26/17 06:42 08/26/17 06:40 Normal Saline - IV 08/26/17 07:41 1,000 mls/hr ASDIR STA Administration Piperacillin Sod/Tazobactam 100 mls @ 200 mls/hr 08/26/17 07:08 08/26/17 07: 20 Sod 4.5 gm/ Dextrose IVPB 08/26/17 07:37 200 mls/hr ONCE ONE Administration Protocol Rocuronium Reform 8 mg 08/26/17 06:39 08/26/17 07:01 Zemuron - IV 08/26/17 06:40 Not Given ONCE ONE Rocuronium Reform 80 mg 08/26/17 06:41 08/26/17 06:41 Zemuron - IV 08/26/17 06:42 80 mg ONCE ONE Administration Rocuronium Reform 20 mg 08/26/17 06:43 08/26/17 06:43 Zemuron - IV 08/26/17 06:44 20 mg ONCE ONE Administration Medical Decision Making - Critical Care Time Total Critical Care Time (minutes): 180 Critical Care Statement: The care of this patient involved high complexity decision making to prevent further life threatening deterioration of the patient 's condition and/or to evaluate & treat vital organ system(s) failure or risk of failure. - Medical Decision Making 08/26/17 08:[address] Fraire at 7AM. 87 M with h/o DM, urinary retention s/p godinez catheter, presenting to ED with altered mental status and respiratory failure. Intubated prior to change of shift. Pt arrived febrile, tachycardic, and hypotensive. Labs pending. At time of my evaluation, pt was hypotensive to 60/20. 4 L crystalloid infused via pressure bag with improvement in pressure to 90s systolic. Exam notable for femi hematuria in godinez as well as BRBPR. 2u uncrossed blood ordered and given. Triple lumen CVC placed in R IJ under sterile technique. 08/26/17 08:54 Family at bedside, confirming that pt is full code. Per family members, pt was in [facility] last night. Pt did not have any fever, did not have any hematuria or hematochezia as far as they know. This morning, pt had acute change, was breathing very labored, prompting family to activate EMS. Pt BP now at 100/40, HR 130. Labs notable for Lactate 15, elevated troponin. pH 7.0 2 amps bicarb ordered INR >2, pt not on AC. Vitamin K 10mg IV administered. Ddx currently septic shock vs hemorrhagic shock. 08/26/17 09:03 Pt accepted to ICU by Dr. Russell. No beds available at this time. 08/26/17 09:35 Bicarb gtt ordered for acidosis BP now 80/50 after 4L NS, 2u PRBC. Levophed gtt ordered 08/26/17 09:41 Ddimer and fibrinogen ordered to evaluate for DIC given abnormal coags and acute hemorrhage 08/26/17 10:00 Pt admitted to hospitalist. Repeat labs ordered. 08/26/17 11:44 I spoke with family about pt's prognosis. I explained that pt is critically ill and may soon. They would still like pt to be full code at this time. 08/26/17 11:52 Repeat VBG with pH 7.0, elevated pCO2. Rate adjusted on vent 14 -> 18 08/26/17 12:25 ICU bed available. Head CT ordered by previous attending but low suspicion for intracranial pathology as cause of pt's clinical status given sepsis picture. *DC/Admit/Observation/Transfer Diagnosis at time of Disposition: Septic shock - Discharge Dispostion Condition at time of disposition: Guarded Decision to Admit order: Yes - Referrals - Patient Instructions - Post Discharge Activity - Attestations Physician Attestion: 08/26/17 10:00 I, Dr. Sheldon Warner MD, attest that this document has been prepared under my direction and personally reviewed by me in its entirety. I further attest, that it accurately reflects all work, treatment, procedures and medical decision -making performed by me. Procedures - Central Line Central Line Lumen: triple Central Line Position: internal jugular (R) Complications: none Post Central Line Insertion: sutured, good blood return, position confirmed w/ CXR
[2017-08-26] MEDS ORDERED: SODIUM BICARBONATE 8.4% 50 MEQ/50 ML VIAL ONE (08:32)
[2017-08-26] MEDS ORDERED: SODIUM BICARBONATE 8.4% 50 MEQ/50 ML DISP.SYRIN IVPUSH ONE (09:08)
--- NOTE | 2017-08-26 09:41 | EKG ---
Test Reason : Blood Pressure : / mmHG Vent. Rate : 111 BPM Atrial Rate : 111 BPM P-R Int : 208 ms QRS Dur : 124 ms QT Int : 392 ms P-R-T Axes : 051 044 247 degrees QTc Int : 533 ms SINUS TACHYCARDIA WITH FREQUENT PREMATURE VENTRICULAR COMPLEXES NON-SPECIFIC INTRA-VENTRICULAR CONDUCTION DELAY ABNORMAL ECG WHEN COMPARED WITH ECG OF 09-APR-2017 16:52, SIGNIFICANT CHANGES HAVE OCCURRED Confirmed by AVIVA SNELL, GIOVANI ([id number]) on 08/26/2017 9:41:13 AM Referred By: Confirmed By:GIOVANI CHICAS MD
[2017-08-26] MEDS ORDERED: SODIUM BICARBONATE 8.4% 50 MEQ/50 ML VIAL IVPB SCH (09:45)
[2017-08-26] MEDS: SODIUM BICARBONATE 8.4% - 150 MEQ in DEXTROSE 5%-WATER - 1,000 ML IVPB SCH (10:15)
[2017-08-26] MEDS: NOREPINEPHRINE BITARTRATE 8,000 MCG in DEXTROSE 5%-WATER - 492 ML IV SCH (10:15)
[2017-08-26 11:08] LABS: ALBUMIN 1.8 g/dl (3.4-5.0); ANION GAP 17 (8-16); BILIRUBIN,TOTAL 1.5 mg/dL (0.2-1.0); BLOOD UREA NITROGEN 20 mg/dL (7-18); CALCIUM 7.3 mg/dL (8.5-10.1); CHLORIDE 108 mmol/L (98-107); CO2 17 mmol/L (21-32); CREATININE 2.2 mg/dL (0.7-1.3); GLUCOSE,RANDOM 91 mg/dL (74-106); SGPT/ALT 161 U/L (12-78); SODIUM 142 mmol/L (136-145); TOT PROT 5.4 g/dl (6.4-8.2)
[2017-08-26 11:09] LABS: ALK PHOS 300 U/L (45-117)
[2017-08-26 11:10] LABS: ANISOCYTOSIS 1+; MACROCYTOSIS 1+; OVALOCYTE 1+; PLATELET ESTIMATE DECREASED
--- NOTE | 2017-08-26 11:32 | HP ---
Admitting History and Physical - Admission Chief Complaint: unresponsiveness History of Present Illness: HPI Information taken from chart, pt intubated, no family present. This is an 87 year old male with pmhx of DM II, BPH, HLD, multiple visits for TIA, CVA who presented to the ED after being found unresponsive by family. Per family, pt was in usual state of health yesterday, no complaints. Upon arrival to the ED pt godinez catheter already in place with femi hematuria. Pt given x2 250 d10 for out of range blood sugar level, BP 96/43- given 4L, with lactic acidosis of 15.9, intubated with central line placement RIJ Following pt noted to have hematochezia, coagulopathy and given 2 units prbc Upon assessment in ED, BP dropped to 80's systolic and placed on levo with improvement in BP Spoke with ICU, awaiting transfer. 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 Home Medications - Allergies Allergies/Adverse Reactions: Allergies Allergy/AdvReac Type Severity Reaction Status Date / Time No Known Allergies Allergy Verified 08/26/17 06:51 - Home Medications Home Medications: Ambulatory Orders RX: metFORMIN HCL [Glucophage -] 500 mg PO DAILY 01/02/15 RX: Atorvastatin Ca [Lipitor] 10 mg PO HS #30 tablet 01/03/15 RX: Cyanocobalamin [Vitamin B12 -] 1,000 mcg PO DAILY #30 tablet 01/03/15 Unobtainable 04/09/17 RX: Atorvastatin Ca [Lipitor] 10 mg PO HS #30 tablet 04/22/17 RX: Polyethylene Glycol 3350 [Miralax 119 gm Btl -] 17 gm PO DAILY 30 Days #1 bottle 04/22/17 RX: Tamsulosin HCl [Flomax -] 0.4 mg PO DAILY@0830 #30 cap.er.24h 04/22/17 Family Disease History - Family Disease History Family Disease History: Other: Brother (asthma) Review of Systems Unable to obtain ROS, reason: Pt itubated Physical Examination Vital Signs: Vital Signs Temperature 97.2 F L 08/26/17 08:15 Pulse Rate 138 H 08/26/17 11:18 Respiratory Rate 14 08/26/17 09:30 Blood Pressure 91/49 08/26/17 11:18 O2 Sat by Pulse Oximetry (%) 100 08/26/17 09:15 Constitutional: Yes: Poor Hygeine Eyes: Yes: Other (miosis -pupils) HENT: Yes: Atraumatic, Other (RIJ) Neck: Yes: Supple Cardiovascular: Yes: Tachycardia, S1, S2 Respiratory: Yes: Intubated, Mechanically Ventilated Gastrointestinal: Yes: Normal Bowel Sounds, Soft Renal/: Yes: Godinez Present, Hematuria Edema: No Integumentary: Yes: Other (cool to touch) Neurological: Yes: Other (intubated) Imaging - Results Chest X-ray: Report Reviewed, Image Reviewed EKG: Report Reviewed, Image Reviewed Problem List - Problems (1) Septic shock Code(s): A41.9 - SEPSIS, UNSPECIFIED ORGANISM; R65.21 - SEVERE SEPSIS WITH SEPTIC SHOCK (2) SILVESTRE (acute kidney injury) Code(s): N17.9 - ACUTE KIDNEY FAILURE, UNSPECIFIED (3) Altered mental status Code(s): R41.82 - ALTERED MENTAL STATUS, UNSPECIFIED (4) Diabetes Code(s): E11.9 - TYPE 2 DIABETES MELLITUS WITHOUT COMPLICATIONS Qualifiers: Diabetes mellitus type: type 1 Diabetes mellitus complication status: with hyperglycemia Qualified Code(s): E10.65 - Type 1 diabetes mellitus with hyperglycemia (5) Hematuria Code(s): R31.9 - HEMATURIA, UNSPECIFIED Qualifiers: Hematuria type: gross Qualified Code(s): R31.0 - Gross hematuria (6) TIA (transient ischemic attack) Code(s): G45.9 - TRANSIENT CEREBRAL ISCHEMIC ATTACK, UNSPECIFIED Qualifiers: Transient cerebral ischemia type: unspecified Qualified Code(s): G45.9 - Transient cerebral ischemic attack, unspecified (7) Thrombocytopenia Code(s): D69.6 - THROMBOCYTOPENIA, UNSPECIFIED (8) Unresponsive Code(s): R41.89 - OTH SYMPTOMS AND SIGNS W COGNITIVE FUNCTIONS AND AWARENESS Assessment/Plan Assessment: 86 year old male with pmhx of hypertension, HLD, diabetes, multiple hospital visits for TIA's and stroke admitted unresponsiveness Plan: 1. Septic shock - Source unclear - s/p 4L in ED - Maintain intubation - Continue levo gtt - Goal MAP >65, CVP 8-10 - Recheck lactic acid @1400 - Blood, urine cx pending - CXR reviewed; clear - CTAP when stable - Head CT not done - x1 dose vanco, zosyn in ED - ICU admission - ID consult placed 2. Elevated trops - EKG with ST inversion anterior and lateral leads , r/o NSTEMI - Cycle cardiac enzymes - Cannot anticoagulate d/t coagulopathy - ECHO ordered - Cardiac monitoring - Cardiology consulted 3. ? DIC , coagulopathy - Likely secondary to sepsis - Vit K given in ED - Fibrinogen level pending, if <100 give 10uints cryoprecipitate - FDP, d dimer pending - Hematology consulted 4. Thrombocytopenia - Give 2 units FFP and 2 units platelets now - Present during previous admission - Immunology work up done previous admission - See above 5. SILVESTRE on CKD - Likely due to sepsis - Continue IVF 6. Hypokalemia - Give x3 runs kcl - Start IVF NS with 20meq 100cc/hr - Trend BMP 7. Hematuria - Maintain godinez 8. Hematochezia - Stool occult blood ordered 9. Metabolic acidosis - Does not appear to be in DKA Visit type - Emergency Visit Emergency Visit: Yes ED Registration Date: 08/26/17 Care time: The patient presented to the Emergency Department on the above date and was hospitalized for further evaluation of their emergent condition. - New Patient This patient is new to me today: Yes Date on this admission: 08/26/17 - Critical Care Critical Care patient: Yes Total Critical Care Time (in minutes): 37 Critical Care Statement: The care of this patient involved high complexity decision making to prevent further life threatening deterioration of the patient 's condition and/or to evaluate & treat vital organ system(s) failure or risk of failure. Hospitalist Screening - Colonoscopy Questionnaire Colonoscopy Questionnaire: Colonoscopy Questionnaire - Patient: 50 - 75 years old and never had a screening colonoscopy: Unknown History of colon or rectal polyps, or CA: Unknown History of IBD, Crohn's disease or UC: Unknown History of abdominal radiation therapy as a child: Unknown - Relative: 1 with colon or rectal CA, or polyps at age 60 or younger: Unknown Colon or rectal CA diagnosed at age 45 or younger: Unknown Multiple relatives with colon or rectal CA: Unknown - Outcome: Screening Result: Negative Screen
[2017-08-26 11:45] LABS: SGOT/AST 326 U/L (15-37)
[2017-08-26 11:49] LABS: BASO % 0.3 % (0-2.0); EOS % 0.4 % (0-4.5); HEMATOCRIT 39.1 % (35.4-49); HEMOGLOBIN 12.1 GM/dL (11.7-16.9); LYMPH % 9.5 % (8-40); MCH 28.2 pg (25.7-33.7); MCHC 30.9 g/dl (32.0-35.9); MEAN CELL VOLUME 91.2 fl (80-96); MEAN PLT VOLUME 8.7 fl (7.5-11.1); MONO % 0.7 % (3.8-10.2); NEUT % 89.1 % (42.8-82.8); PLATELET COUNT 42 K/MM3 (134-434); POTASSIUM 2.8 mmol/L (3.5-5.1); RBC 4.29 M/mm3 (4.00-5.60); RDW 15.9 % (11.9-15.9); WHITE BLOOD COUNT 14.7 K/mm3 (4.0-10.0)
[2017-08-26] MEDS ORDERED: SODIUM CHLORIDE 1,000 ML IV SCH (12:30)
[2017-08-26] MEDS ORDERED: SODIUM CHLORIDE 0.9%/KCL 20 MEQ/1,000 ML INFUS.BAG IV SCH (12:45)
[2017-08-26 13:08] LABS: ACTIVATED PTT > 400.0 SECONDS (26.9-34.4); INR > 15.00 (0.82-1.09); PROTHROMBIN TIME (PATIENT) > 320.00 SEC (9.7-13.0)
--- NOTE | 2017-08-26 13:43 | CONSULT ---
Consultation: REQUESTING PROVIDER: Amadou Marroquin APPLICATION ENGINEER CONSULT REQUEST: We have been asked to medically evaluate this patient for multi organ failure , shock,respiratory failure HISTORY OF PRESENT ILLNESS: History was obtained from medical record and the family as pt is unresponsive pt is 87 year old male with PMHx of HLD, DM, BPH, chronic godinez , TIA who was found unresponsive by his family to day morning in his bed and was brought to ED , last seen in his [facility] last night. IN ED pt was found to have low blood pressure , LA 15.4, Hypothermia , elevated trop with ST depression in inferior and lateral leads ,sever coagulopathy ( possible DIC) pt intubated and central line was placed he received iv fluids 4 L, Levofed, FFP, becarb, and was admitted to be monitored in ICU . CT head negative for acute pathology CXR without pneumothorax and ET tube in place Family denies any recent fever , chills, but reports chronic godinez for the last 3 month was changed only twice his medical care in [place] family reports hematuria pt is bed pounded due to depression family denies any chest pain or SOB last seen in Mar 2017 due to AMS REVIEW OF SYSTEMS: unable to obtaine pt unresponsive PHYSICAL EXAMINATION Vital Signs - 24 hr 08/26/17 08/26/17 08/26/17 06:30 06:40 07:30 Temperature 100.7 F H Pulse Rate 128 H Pulse Rate [ Apical] Respiratory 14 14 14 Rate Blood Pressure 98/41 Blood Pressure [Left Arm] O2 Sat by Pulse 74 L 100 Oximetry (%) 08/26/17 08/26/17 08/26/17 08:15 08:45 09:15 Temperature 97.2 F L Pulse Rate Pulse Rate [ 136 H 136 H 132 H Apical] Respiratory 14 14 14 Rate Blood Pressure Blood Pressure 118/32 96/43 92/41 [Left Arm] O2 Sat by Pulse 100 99 100 Oximetry (%) 08/26/17 08/26/17 08/26/17 09:30 10:15 10:29 Temperature Pulse Rate 131 H Pulse Rate [ 144 H Apical] Respiratory 14 Rate Blood Pressure 67/42 Blood Pressure 82/49 [Left Arm] O2 Sat by Pulse Oximetry (%) 08/26/17 08/26/17 08/26/17 11:00 11:18 11:25 Temperature 96.9 F L Pulse Rate 140 H Pulse Rate [ 140 H 138 H 138 H Apical] Respiratory 18 Rate Blood Pressure 83/48 Blood Pressure 83/48 91/49 91/49 [Left Arm] O2 Sat by Pulse 100 Oximetry (%) 08/26/17 08/26/17 11:49 12:06 Temperature Pulse Rate 137 H Pulse Rate [ 139 H Apical] Respiratory Rate Blood Pressure 84/44 Blood Pressure 90/41 [Left Arm] O2 Sat by Pulse Oximetry (%) GENERAL: intubated sedated HEAD: NC/AT EYES: pin point pupil B/L EARS, NOSE, THROAT: dry mucous membranes. NECK: supple, central line in place with small bloody oozing LUNGS: decreased breath sound B/L bases HEART: RRR, normal S1 and S2 , No MRG ABDOMEN: Soft, nontender, not distended, normoactive bowel sounds, no guarding, no rebound, godinez in place UPPER EXTREMITIES: weak pulse , no edema LOWER EXTREMITIES: weak pulse , no edema NEUROLOGICAL: unresponsive , catchetic, no papinki , pin point pupils Laboratory Results - last 24 hr 08/26/17 08/26/17 08/26/17 06:36 06:45 07:03 WBC 6.0 RBC 3.59 L D Hgb 10.1 L D Hct 32.9 L D MCV 91.5 MCH 28.2 D MCHC 30.8 L RDW 16.1 H Plt Count 77 L D MPV 9.6 Absolute Neuts (auto) 4.6 Neutrophils % 76.1 D Neutrophils % (Manual) 50.0 Band Neutrophils % 10.0 Lymphocytes % 22.4 Lymphocytes % (Manual) 27.0 D Monocytes % 0.8 L D Monocytes % (Manual) 2 L Eosinophils % 0.5 D Eosinophils % (Manual) 3.0 Basophils % 0.2 Basophils % (Manual) 0.0 Myelocytes % (Man) 3 H D Promyelocytes % (Man) 0 Blast Cells % (Manual) 0 Nucleated RBC % 0 Metamyelocytes 5 H D Hypochromia 1+ Platelet Estimate Decreased Platelet Comment Anisocytosis 1+ Macrocytosis 1+ Ovalocytes 1+ PT with INR INR PTT (Actin FS) Fibrinogen D-Dimer VBG pH POC VBG pCO2 POC VBG pO2 Mixed VBG HCO3 Sodium Potassium Chloride Carbon Dioxide Anion Gap BUN Creatinine Creat Clearance w eGFR POC Glucometer [phone] Random Glucose Lactic Acid 15.9 H* Calcium Total Bilirubin AST ALT Alkaline Phosphatase Creatine Kinase Creatine Kinase Index CK-MB (CK-2) Troponin I Total Protein Albumin Urine Color Urine Appearance Urine pH Ur Specific [place] Urine Protein Urine Glucose (UA) Urine Ketones Urine Blood Urine Nitrite Urine Bilirubin Urine Urobilinogen Ur Leukocyte Esterase Urine WBC (Auto) Urine RBC (Auto) Urine Bacteria Hep C Ab Diagnostic HCV RNA PCR log certified endoscopy technician/ml HCV RNA (PCR) IUs/ml Liver Fibrosis Interp HIV 1&2 Antibody Screen HIV P24 Antigen Blood Type Antibody Screen Crossmatch 08/26/17 08/26/17 08/26/17 07:03 07:03 07:03 WBC RBC Hgb Hct MCV MCH MCHC RDW Plt Count MPV Absolute Neuts (auto) Neutrophils % Neutrophils % (Manual) Band Neutrophils % Lymphocytes % Lymphocytes % (Manual) Monocytes % Monocytes % (Manual) Eosinophils % Eosinophils % (Manual) Basophils % Basophils % (Manual) Myelocytes % (Man) Promyelocytes % (Man) Blast Cells % (Manual) Nucleated RBC % Metamyelocytes Hypochromia Platelet Estimate Platelet Comment Anisocytosis Macrocytosis Ovalocytes PT with INR 31.20 H INR 2.76 H D PTT (Actin FS) 112.8 H Fibrinogen D-Dimer VBG pH POC VBG pCO2 POC VBG pO2 Mixed VBG HCO3 Sodium 140 Potassium 3.6 Chloride 103 Carbon Dioxide 11 L D Anion Gap 26 H BUN 22 H Creatinine 2.3 H D Creat Clearance w eGFR 27.03 POC Glucometer Random Glucose 235 H D Lactic Acid Calcium 8.0 L Total Bilirubin 1.0 D AST 63 H ALT 28 Alkaline Phosphatase 256 H Creatine Kinase 103 Creatine Kinase Index CK-MB (CK-2) Troponin I 1.45 H* D Cancelled Total Protein 5.5 L Albumin 1.9 L D Urine Color Urine Appearance Urine pH Ur Specific [place] Urine Protein Urine Glucose (UA) Urine Ketones Urine Blood Urine Nitrite Urine Bilirubin Urine Urobilinogen Ur Leukocyte Esterase Urine WBC (Auto) Urine RBC (Auto) Urine Bacteria Hep C Ab Diagnostic HCV RNA PCR log certified endoscopy technician/ml HCV RNA (PCR) IUs/ml Liver Fibrosis Interp HIV 1&2 Antibody Screen HIV P24 Antigen Blood Type Antibody Screen Crossmatch 08/26/17 08/26/17 08/26/17 07:10 07:10 07:10 WBC RBC Hgb Hct MCV MCH MCHC RDW Plt Count MPV Absolute Neuts (auto) Neutrophils % Neutrophils % (Manual) Band Neutrophils % Lymphocytes % Lymphocytes % (Manual) Monocytes % Monocytes % (Manual) Eosinophils % Eosinophils % (Manual) Basophils % Basophils % (Manual) Myelocytes % (Man) Promyelocytes % (Man) Blast Cells % (Manual) Nucleated RBC % Metamyelocytes Hypochromia Platelet Estimate Platelet Comment Anisocytosis Macrocytosis Ovalocytes PT with INR INR PTT (Actin FS) Fibrinogen D-Dimer VBG pH 7.00 L* POC VBG pCO2 37.3 L POC VBG pO2 69.0 H Mixed VBG HCO3 8.7 L* Sodium Potassium Chloride Carbon Dioxide Anion Gap BUN Creatinine Creat Clearance w eGFR POC Glucometer Random Glucose Lactic Acid Calcium Total Bilirubin AST ALT Alkaline Phosphatase Creatine Kinase Creatine Kinase Index CK-MB (CK-2) Troponin I Total Protein Albumin Urine Color Red Urine Appearance Bloody Urine pH 7.0 Ur Specific [place] 1.015 Urine Protein 2+ H Urine Glucose (UA) 1+ H Urine Ketones Trace H Urine Blood 3+ H Urine Nitrite Negative Urine Bilirubin Negative Urine Urobilinogen Negative Ur Leukocyte Esterase Negative Urine WBC (Auto) O-2 Urine RBC (Auto) >100 Urine Bacteria Moderate Hep C Ab Diagnostic HCV RNA PCR log certified endoscopy technician/ml HCV RNA (PCR) IUs/ml Liver Fibrosis Interp HIV 1&2 Antibody Screen Negative HIV P24 Antigen Negative Blood Type Antibody Screen Crossmatch 08/26/17 08/26/17 08/26/17 07:10 10:04 10:04 WBC 14.7 H D RBC 4.29 Hgb 12.1 D Hct 39.1 D MCV 91.2 MCH 28.2 MCHC 30.9 L RDW 15.9 Plt Count 42 L D MPV 8.7 Absolute Neuts (auto) 13.1 Neutrophils % 89.1 H Neutrophils % (Manual) Band Neutrophils % Lymphocytes % 9.5 D Lymphocytes % (Manual) Monocytes % 0.7 L Monocytes % (Manual) Eosinophils % 0.4 Eosinophils % (Manual) Basophils % 0.3 Basophils % (Manual) Myelocytes % (Man) Promyelocytes % (Man) Blast Cells % (Manual) Nucleated RBC % 0 Metamyelocytes Hypochromia Platelet Estimate Platelet Comment No clumping noted Anisocytosis Macrocytosis Ovalocytes PT with INR INR PTT (Actin FS) Fibrinogen Cancelled D-Dimer Cancelled VBG pH POC VBG pCO2 POC VBG pO2 Mixed VBG HCO3 Sodium Potassium Chloride Carbon Dioxide Anion Gap BUN Creatinine Creat Clearance w eGFR POC Glucometer Random Glucose Lactic Acid Calcium Total Bilirubin AST ALT Alkaline Phosphatase Creatine Kinase Creatine Kinase Index CK-MB (CK-2) Troponin I Total Protein Albumin Urine Color Urine Appearance Urine pH Ur Specific [place] Urine Protein Urine Glucose (UA) Urine Ketones Urine Blood Urine Nitrite Urine Bilirubin Urine Urobilinogen Ur Leukocyte Esterase Urine WBC (Auto) Urine RBC (Auto) Urine Bacteria Hep C Ab Diagnostic Cancelled HCV RNA PCR log certified endoscopy technician/ml Cancelled HCV RNA (PCR) IUs/ml Cancelled Liver Fibrosis Interp Cancelled HIV 1&2 Antibody Screen HIV P24 Antigen Blood Type Antibody Screen Crossmatch 08/26/17 08/26/17 08/26/17 10:04 10:04 10:04 WBC RBC Hgb Hct MCV MCH MCHC RDW Plt Count MPV Absolute Neuts (auto) Neutrophils % Neutrophils % (Manual) Band Neutrophils % Lymphocytes % Lymphocytes % (Manual) Monocytes % Monocytes % (Manual) Eosinophils % Eosinophils % (Manual) Basophils % Basophils % (Manual) Myelocytes % (Man) Promyelocytes % (Man) Blast Cells % (Manual) Nucleated RBC % Metamyelocytes Hypochromia Platelet Estimate Platelet Comment Anisocytosis Macrocytosis Ovalocytes PT with INR INR PTT (Actin FS) Cancelled Fibrinogen D-Dimer VBG pH POC VBG pCO2 POC VBG pO2 Mixed VBG HCO3 Sodium 142 Potassium 2.8 L* D Chloride 108 H Carbon Dioxide 17 L D Anion Gap 17 H BUN 20 H Creatinine 2.2 H Creat Clearance w eGFR 28.45 POC Glucometer Random Glucose 91 D Lactic Acid 11.0 H* Calcium 7.3 L Total Bilirubin 1.5 H D AST 326 H D ALT 161 H D Alkaline Phosphatase 300 H Creatine Kinase 406 H Creatine Kinase Index 5.2 H CK-MB (CK-2) 21.3 H Troponin I 5.00 H* D Total Protein 5.4 L Albumin 1.8 L Urine Color Urine Appearance Urine pH Ur Specific [place] Urine Protein Urine Glucose (UA) Urine Ketones Urine Blood Urine Nitrite Urine Bilirubin Urine Urobilinogen Ur Leukocyte Esterase Urine WBC (Auto) Urine RBC (Auto) Urine Bacteria Hep C Ab Diagnostic HCV RNA PCR log certified endoscopy technician/ml HCV RNA (PCR) IUs/ml Liver Fibrosis Interp HIV 1&2 Antibody Screen HIV P24 Antigen Blood Type Antibody Screen Crossmatch 08/26/17 08/26/17 08/26/17 10:04 10:21 12:00 WBC RBC Hgb Hct MCV MCH MCHC RDW Plt Count MPV Absolute Neuts (auto) Neutrophils % Neutrophils % (Manual) Band Neutrophils % Lymphocytes % Lymphocytes % (Manual) Monocytes % Monocytes % (Manual) Eosinophils % Eosinophils % (Manual) Basophils % Basophils % (Manual) Myelocytes % (Man) Promyelocytes % (Man) Blast Cells % (Manual) Nucleated RBC % Metamyelocytes Hypochromia Platelet Estimate Platelet Comment Anisocytosis Macrocytosis Ovalocytes PT with INR > 320.00 H INR > 15.00 H* PTT (Actin FS) > 400.0 H Fibrinogen D-Dimer VBG pH 7.00 L* POC VBG pCO2 61.0 H* D POC VBG pO2 108.0 H D Mixed VBG HCO3 14.2 L* Sodium Potassium Chloride Carbon Dioxide Anion Gap BUN Creatinine Creat Clearance w eGFR POC Glucometer Random Glucose Lactic Acid Calcium Total Bilirubin AST ALT Alkaline Phosphatase Creatine Kinase Creatine Kinase Index CK-MB (CK-2) Troponin I Total Protein Albumin Urine Color Urine Appearance Urine pH Ur Specific [place] Urine Protein Urine Glucose (UA) Urine Ketones Urine Blood Urine Nitrite Urine Bilirubin Urine Urobilinogen Ur Leukocyte Esterase Urine WBC (Auto) Urine RBC (Auto) Urine Bacteria Hep C Ab Diagnostic HCV RNA PCR log certified endoscopy technician/ml HCV RNA (PCR) IUs/ml Liver Fibrosis Interp HIV 1&2 Antibody Screen HIV P24 Antigen Blood Type A POSITIVE Antibody Screen Negative Crossmatch See Detail Active Medications Generic Name Dose Route Start Last Admin Trade Name Vinnieq PRN Reason Stop Dose Admin Chlorhexidine Gluconate 1 applic 08/26/17 22:00 Hibiclens For Decolonization - TP HS CHANDLER Norepinephrine Bitartrate 8, 500 mls @ 18.75 mls/hr 08/26/17 09:30 08/26/17 11:49 000 mcg/ Dextrose IV 12 mcg/min TITR CHANDLER 45 mls/hr Titration Protocol 5 MCG/MIN Sodium Bicarbonate 150 meq/ 1,150 mls @ 125 mls/hr 08/26/17 10:00 08/26/17 10 :15 Dextrose IVPB 125 mls/hr ASDIR CHANDLER Administration Potassium Chloride 10 meq in 100 mls @ 100 mls/hr 08/26/17 12:30 Potassium Chloride 10 Meq Premix Ivpb - IVPB 08/26/17 15:29 Q60M CHANDLER Potassium Chloride/Sodium Chloride 20 meq in 1,000 mls @ 100 mls/hr 08/26/17 12:45 Ns+20 Meq Kcl - IV ASDIR CHANDLER Mupirocin 1 applic 08/26/17 22:00 Bactroban Ointment (For Decolonization) - NS 08/31/17 21:59 BID CHANDLER Pantoprazole Sodium 40 mg 08/26/17 12:45 Protonix Iv IVPUSH DAILY CHANDLER CBC, BMP 08/26/17 10:04 08/26/17 10:04 Images : 08/26/[address] : no acute pathology CXR: ET tube in place , no pneumothorax EKG: sinus tach 111bpm, ST depressions possible anterolateral and possible inferior ischemia, PVCs ECHO 04/10/17-Normal LV systolic function, mild MR, mild AR, no pericardial effusion ASSESSMENT/PLAN: 87 year old male with H/O DM, HLD, BPH , chronic godinez presented to ED after found unresponsive in his bed . In ED pt was found to have sever shock,sever coagulopathy, multiorgan failure and was admitted to be monitored in ICU. #Neurology _AMS * intubated , sedated, un responsive * last seen in usual state of health last night * pin point pupils * monitor in ICU * Head CT negative for acute pathology #ID -shock unclear etiology likely septic vs cardiogenic unlikely -Lactic acidosis * presented with hypotension , hypothermia , LA 15.4, tachycardia * 4 L IV fluids in ED , Levofed GTT, Becarb GTT started in ED continue * broad abx coverage vanco, Zosyn in ED , ID consulted DR. 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 * can not give ASA or BB due to septic shock and hematuria * supportive management for now * cardiology on Board DR Bowling recommendations appreciated * trend trop, repeat EKG in 2 hours * daily weight * VItals Q 4hr #Pulmonary - Acute hypoxic hypercapnic respiratory failure * ABG , Carboxymethhymoglobin ,Methhemoglobin * intubated sedated * CXR negative for acute pathology * ABG with metabolic acidosis , repeat in AM * O2 to keep O2 sat > 90 % #Hem/onc - sever coagulopathy possible DIC -Thrombocytopenia * Type and screen * S/P FFP,platelets , PRBCs * transfuse as needed to keep Hgb> 8 * F/U PT, PTT, INR, Fibrinogen level CBC * Dr Strickland recommendations appreciated added DDAVP * Hydrocortisone sod succinate 100 mg IVpush Q 8hr #Metabolic -Hypokalemia 2.3 replenished as needed -Lactic acidosis -Metabolic acidosis * continue IV fluids, empiric AbX, #GI: _ Elevated LFTS likey due to ischemia * trends LFTS * Continue with supportive therapy IV fluids and pressors * CT abdomen pelvic when stable * hep panel * occult blood * protonix 40 mg iv push daily #Nephro SILVESTRE on CKD likely due to sepsis -BPH - Hematuria * godinez in place * hold Flomax 0.4 mg * monitor I& O , BUN/CR * renal US when stable #Endo - DM on Metfromin 500 at home - Hypoglycemic in ED given D50x2 * hold metformin , ISS, BGM Q4hr * #FEN * F: S/p 4 L NS , continue NS @ 100 CC/hr * E: hypokalemia 2.8 , replenished , monitor BMP * N: NPO for now , NG/OG in place Proph Dvts: SCds B/L GI: Protonix 40 IV daily Dispo * monitor in ICU * very poor prognosis due to multi organ failure Dispo: We will continue to follow the patient. Thank you for this consultative opportunity. Visit type - Emergency Visit Emergency Visit: Yes ED Registration Date: 08/26/17 Care time: The patient presented to the Emergency Department on the above date and was hospitalized for further evaluation of their emergent condition. - New Patient This patient is new to me today: Yes Date on this admission: 08/26/17 - Critical Care Critical Care patient: Yes Total Critical Care Time (in minutes): 45 Critical Care Statement: The care of this patient involved high complexity decision making to prevent further life threatening deterioration of the patient 's condition and/or to evaluate & treat vital organ system(s) failure or risk of failure.
--- NOTE | 2017-08-26 13:58 | PN ---
Teaching Attending Note Name of Resident: Odell Iverson ATTENDING PHYSICIAN STATEMENT I saw and evaluated the patient. I reviewed the resident's note and discussed the case with the resident. I agree with the resident's findings and plan as documented. SUBJECTIVE: Pt seen and examined in the ICU. Briefly, 87yo male with h/o DM, hyperlipidemia , BPH, h/o TIA who was found unresponsive this AM by family. Reportedly was in his USOH yesterday. Hypotensive, severe coagulopathy and positive lactic acidosis, cardiac enzymes with EKG changes on initial work up. RIJ central line placed and started on levophed gtt for persistent hypotension. CT head done without acute changes. OBJECTIVE: Vital Signs Period Temp Pulse Resp BP Sys/Burt Pulse Ox Last 24 Hr 96.9 F-100.7 F 128-144 4-18 67-118/32-49 74-100 Intake & Output 08/23/17 08/24/17 08/25/17 08/26/17 23:59 23:59 23:59 23:59 Weight 90.718 kg Gen: intubated, unresponsive HEENT: pinpoint pupils bilaterally Neck: central line oozing bright red blood Heart: tachycardic, regular Lung: decreased breath sounds at the bases Abd: soft, nontender Ext: no edema CBC, BMP 08/26/17 10:04 08/26/17 10:04 INR, PTT INR > 15.00 (0.82-1.09) H* 08/26/17 12:00 Fibrinogen Cancelled 08/26/17 10:04 Hepatic Panel Total Bilirubin 1.5 mg/dL (0.2-1.0) H D 08/26/17 10:04 AST 326 U/L (15-37) H D 08/26/17 10:04 ALT 161 U/L (12-78) H D 08/26/17 10:04 Alkaline Phosphatase 300 U/L (45-117) H 08/26/17 10:04 Albumin 1.8 g/dl (3.4-5.0) L 08/26/17 10:04 Troponin, BNP 08/26/17 08/26/17 08/26/17 07:03 07:03 10:04 Troponin I 1.45 H* D Cancelled 5.00 H* D Active Medications Chlorhexidine Gluconate (Hibiclens For Decolonization -) 1 applic TP HS CHANDLER Norepinephrine Bitartrate 8, (000 mcg/ Dextrose) 500 mls @ 18.75 mls/hr IV TITR CHANDLER; Protocol Last Titration: 08/26/17 11:49 Dose: 12 mcg/min, 45 mls/hr Sodium Bicarbonate 150 meq/ (Dextrose) 1,150 mls @ 125 mls/hr IVPB ASDIR CHANDLER Last Admin: 08/26/17 10:15 Dose: 125 mls/hr Potassium Chloride (Potassium Chloride 10 Meq Premix Ivpb -) 10 meq in 100 mls @ 100 mls/hr IVPB Q60M CHANDLER Stop: 08/26/17 15:29 Potassium Chloride/Sodium Chloride (Ns+20 Meq Kcl -) 20 meq in 1,000 mls @ 100 mls/hr IV ASDIR CHANDLER Mupirocin (Bactroban Ointment (For Decolonization) -) 1 applic NS BID CHANDLER Stop: 08/31/17 21:59 Pantoprazole Sodium (Protonix Iv) 40 mg IVPUSH DAILY [facility] ASSESSMENT AND PLAN: Acute Respiratory Failure Altered Mental Status Shock of unclear etiology Multiorgan Failure Severe Coagulopathy - r/o DIC Thrombocytopenia Acute Kidney Injury Elevated LFTs likely ischemic injury +Troponins - r/o NSTEMI Metabolic Acidosis - empiric antibiotics - f/u cultures - IVF resuscitation to CVP 8-12 - titrate pressors to maintain MAP >65 - monitor urine output, creatinine - monitor coags, CBC, fibrinogen level - transfuse FFPs, platelets, cryoprecipitate as needed - replete lytes - bicarb gtt - monitor ABG - trend cardiac enzymes - echocardiogram - trend lactate - will need CT A/P to r/o infectious etiology when stable for transport - prognosis guarded - ICU monitoring critical care time spent in reviewing chart, evaluating plan and formulating plan 35 min
[2017-08-26] MEDS ORDERED: DESMOPRESSIN ACETATE 4 MCG/ML AMP IVPB ONE (14:13)
--- NOTE | 2017-08-26 14:16 | PN ---
Progress Note (short form) - Note Progress Note: 87 year old male with pmhx of DM II, BPH, HLD, multiple visits for TIA, CVA who presented to the ED after being found unresponsive by family. Per family, pt was in usual state of health yesterday, no complaints. Upon arrival to the ED pt godinez catheter already in place with femi hematuria. Pt given x2 250 d10 for out of range blood sugar level, BP 96/43- given 4L, with lactic acidosis of 15.9, intubated with central line placement RIJ Following pt noted to have hematochezia, coagulopathy and given 2 units prbc Seen in ICU. O/E: General: Intubated HEENT: NCAT Cor: Tachy Resp: Mechanically ventilating Ext: Mild edema Last Vital Signs Temp Pulse Resp BP Pulse Ox 96.9 F L 139 H 18 90/41 100 08/26/17 11:25 08/26/17 12:06 08/26/17 11:25 08/26/17 12:06 08/26/17 11:25 CBC, BMP 08/26/17 10:04 08/26/17 10:04 Current Medications Generic Name Dose Route Start Last Admin Trade Name Freq PRN Reason Stop Dose Admin Chlorhexidine Gluconate 1 applic 08/26/17 22:00 Hibiclens For Decolonization - TP HS CHANDLER Desmopressin Acetate 27 mcg 08/26/17 14:13 Ddavp Injection - IVPB 08/26/17 14:14 ONCE ONE Norepinephrine Bitartrate 8, 500 mls @ 18.75 mls/hr 08/26/17 09:30 08/26/17 11:49 000 mcg/ Dextrose IV 12 mcg/min TITR CHANDLER 45 mls/hr Titration Protocol 5 MCG/MIN Sodium Bicarbonate 150 meq/ 1,150 mls @ 125 mls/hr 08/26/17 10:00 08/26/17 10 :15 Dextrose IVPB 125 mls/hr ASDIR CHANDLER Administration Potassium Chloride 10 meq in 100 mls @ 100 mls/hr 08/26/17 14:15 Potassium Chloride 10 Meq Premix Ivpb - IVPB 08/26/17 17:14 Q1H CHANDLER Potassium Chloride/Sodium Chloride 20 meq in 1,000 mls @ 100 mls/hr 08/26/17 12:45 Ns+20 Meq Kcl - IV ASDIR CHANDLER Clindamycin Phosphate 900 mg in 50 mls @ 100 mls/hr 08/26/17 14:15 Cleocin 900 Mg Premix Ivpb - IVPB Q8H-IV [facility] Protocol Mupirocin 1 applic 08/26/17 22:00 Bactroban Ointment (For Decolonization) - NS 08/31/17 21:59 BID [facility] Pantoprazole Sodium 40 mg 08/26/17 12:45 Protonix Iv IVPUSH DAILY [facility] Critically ill- GNR septic shock DIC from above for Platelets/ddAVP/FFP if fibrinogen <150 give cryo parameters to be checked q6hrs d/wICU/Hosp PILE [employer]IVER
--- NOTE | 2017-08-26 14:33 | PN ---
Progress Note (short form) - Note Progress Note: ID consult dictated 87 year old man lives at home, chronic godinez, essentaily bedbound- found early this am by family - unresponsive in his bed with labored respirations he has had a chronic godinez for last 3 months - family noted he had hematuria yesterday godinez last changed about 6 weeks ago no nausea or vomiting no travel no history of UTI no recent antibiotics no new meds last hospitalization was in March at [facility]- eating normally at home history from family he was found to have unmeasurable blood glucose by EMS- he was given d10 and brought to ED in ER he was hypotensive and hypothermic, lactic acid of 15.9 he was intubated and found to be in DIC septic shock coagulopathy multiorgan failure +troponins f/u cultures imaging when stable vancomycin/meropenem/clindamycin tobramycin one dose no history of resistant pathogens noted by family or in [facility] records but will cover broadly given severity of presenting illness no skin wounds noted check vanco level (random) in am, redose one gram if less then 15 overall prognosis grim given age and severity of illness over 45 minutes spent in the care of this critically ill ICU patient d/w ICU team Problem List - Problems (1) Septic shock Code(s): A41.9 - SEPSIS, UNSPECIFIED ORGANISM; R65.21 - SEVERE SEPSIS WITH SEPTIC SHOCK (2) DIC (disseminated intravascular coagulation) Code(s): D65 - DISSEMINATED INTRAVASCULAR COAGULATION (3) Multiorgan failure Code(s): CXQ1849 -
[2017-08-26] MEDS ORDERED: SODIUM CHLORIDE IVPB ONE ×2 (14:45)
[2017-08-26] MEDS ORDERED: DESMOPRESSIN ACETATE IVPB ONE ×2 (14:45)
[2017-08-26] MEDS: PANTOPRAZOLE SODIUM 40 MG VIAL IVPUSH SCH (14:52)
[2017-08-26] MEDS: CLINDAMYCIN 900 MG PREMIX IVPB 900 MG/50 ML BAG IVPB SCH ×2 (14:52→17:40)
[2017-08-26] MEDS: KCL 10 MEQ IVPB 10 MEQ/100 ML INFUS.BAG IVPB SCH ×3 (14:52→17:35)
[2017-08-26] MEDS: HYDROCORTISONE SOD SUCCINATE 100 MG/2 ML VIAL IVPUSH SCH ×2 (14:54→23:00)
[2017-08-26] MEDS ORDERED: TOBRAMYCIN SULFATE 120 MG in SODIUM CHLORIDE 100 ML IVPB ONE (15:36)
--- NOTE | 2017-08-26 15:52 | CONS ---
INFECTIOUS DISEASE CONSULTATION DATE OF CONSULTATION: DATE OF DICTATION: 08/26/2017 REQUESTED BY: The hospitalist service. HISTORY OF PRESENT ILLNESS: This is an 87-year-old man who lives here in [place] with his family who moved here about 4 or 5 years ago from [place]. For the last 3 months, he has had a chronic Canas catheter placed and it was last changed about 6 weeks ago. Yesterday, the family noticed that there was blood in the Canas. They report he was behaving normally yesterday. At baseline, he stays in bed. He does not like getting up and he was eating normally. He had no complaints. No nausea or vomiting. This morning, at 5 a.m., his daughter found him unresponsive with labored breathing. She called EMS. Blood sugar was undetectable. He was given D10, brought to the emergency room. In the emergency room, he had a blood pressure of 96/43. He was given 4 L of fluid. His lactic acid was 15.9. He was intubated and had a central line placed. He was given 2 units of blood. He had coagulopathy and he had femi hematuria. He was given empirically vancomycin and Zosyn in the emergency room and he is unresponsive. All the history is from the family. The family reports, when they last saw him last night, he was at his baseline. His daughter checks on him frequently. Yesterday, his fingerstick was 109 and he takes metformin. There is no history of UTIs. There is no history of any recent antibiotics or change in medications. ALLERGIES: He has no known drug allergies. PAST MEDICAL HISTORY: Notable for some mild dementia. He has had a TIA in the past, hypertension, hyperlipidemia, diabetes. Surgical history: Left total hip replacement. There is no history of any drug allergies. MEDICATIONS AT HOME: Include metformin, atorvastatin, MiraLAX, and tamsulosin. FAMILY HISTORY: Noncontributory. SOCIAL HISTORY: He lives with his family. 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 There is no history of any cigarette or substance use. REVIEW OF SYSTEMS: Besides the family noting hematuria in the Canas bag yesterday is otherwise negative. PHYSICAL EXAMINATION: General: He is hypothermic. He is on a warming blanket. Vital signs: T-max was 100.7 earlier today. His current blood pressure is 90/41. On admission, he was 67/38. His respiratory rate is 18. He is on 100% FiO2 and he is orally intubated. HEENT: He is unresponsive. He is normocephalic. Neck: Supple. There are no meningeal signs. Skin: He has no petechiae or purpura. He has no open skin wounds. Lungs: Have diminished breath sounds at the bases. Heart: Tachycardiac. Abdomen: Flat and soft. Extremities: Without edema. Genitourinary: He has a Canas with gross urine in it. LABORATORIES: On admission, his white count was 6 with a hemoglobin of 10, platelets of 77. He does have a history of thrombocytopenia. He has been hospitalized before at [facility] and his platelet count has been as low as 84,000 in the past. On admission, his platelet count was 77,000; on repeat, was 42,000. INR on admission was 2.76; on repeat, was less than 15, with a PTT of greater than 400. Fibrin-degradation products and fibrinogen are pending. BUN and creatinine on admission were 22 and 2.3, glucose of 23. On repeat, BUN and creatinine are 20 and 2.2. Lactic acid was 15.9 on admission; repeat is 11. All his lab repeats are pending. He now has a total bilirubin of 1.5, AST of 326, ALT of 161, with an alkaline phosphatase of 33. His troponin is 5. Urinalysis is notable for 3+ blood, with only 0-2 white cells, 100 red cells, and moderate bacteria. Prior admission, he had hepatitis serology checked in 2016 that was all negative. HIV testing was done and is negative, as well. Blood and urine cultures pending. No prior cultures ever at [facility] have been positive. Chest x-ray is negative for infiltrate and head CT notable for no acute intracranial pathology. There is a moderately severe degree of diffuse cerebral atrophy. In summary, this is an 87-year-old man admitted with what appears to be septic shock, DIC, multi-organ failure of unclear source. Concerns would include the urine, as he does have this chronic Canas. Would cover him at this time with vancomycin, meropenem, and clindamycin. Cover for resistant urinary pathogens. Cover for MRSA, as well as toxin-mediated shock. Although there are no skin wounds noted, given the severity of his illness, this would be appropriate. He is being treated for his DIC and is being managed in the ICU by the varnishing machine operator. I spoke at length with the family regarding his history and care. Over 45 minutes was spent in the care of this patient. AGUS POP M.D. [id number]
[2017-08-26] MEDS: MEROPENEM 1 GM in DEXTROSE 5%-WATER 100 ML IVPB SCH ×2 (16:20→21:40)
--- NOTE | 2017-08-26 16:35 | CON.CARD ---
Consult Consult Specialty:: Cardiology Referred by:: Hospitalist Reason for Consultation:: Elevated troponin - History of Present Illness Chief Complaint: admitted unresponsive History of Present Illness: 87 year old man h/o HLD, DMII, TIA, adm after found unresponsive by family not to have coagulopathy likely DIC, likely septic shock, hypoglycemia, as well as noted to have an elevated troponin. Pt seen and examined today, intubated, unresponsive. Unable to provide a history. As per report pt was seen the day prior to admission by his family in his usual state of health. no reported chest pain or sob. 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 Home Medications - Allergies Allergies/Adverse Reactions: Allergies Allergy/AdvReac Type Severity Reaction Status Date / Time No Known Allergies Allergy Verified 08/26/17 06:51 - Home Medications Home Medications: Ambulatory Orders metFORMIN HCL [Glucophage -] 500 mg PO DAILY 01/02/15 Atorvastatin Ca [Lipitor] 10 mg PO HS #30 tablet 01/03/15 Cyanocobalamin [Vitamin B12 -] 1,000 mcg PO DAILY #30 tablet 01/03/15 Unobtainable 04/09/17 Atorvastatin Ca [Lipitor] 10 mg PO HS #30 tablet 04/22/17 Polyethylene Glycol 3350 [Miralax 119 gm Btl -] 17 gm PO DAILY 30 Days #1 bottle 04/22/17 Tamsulosin HCl [Flomax -] 0.4 mg PO DAILY@0830 #30 cap.er.24h 04/22/17 Family Disease History - Family Disease History Family Disease History: Other: Brother (asthma) Review of Systems - Review of Systems Constitutional: reports: Lethargy. denies: No Symptoms, Chills, Diaphoresis, Fever, Loss of Appetite, Malaise, Night Sweats, Unintentional Wgt. Loss, Weakness, Other Eyes: denies: No Symptoms, Blind Spots, Blurred Vision, Double Vision, Eye Pain , Floaters, Photophobia, Recent Change in Vision, Other HENT: denies: No Symptoms, Difficult Swallowing, Ear Discharge, Ear Pain, Epistaxis, Gingival Bleeding, Hearing Loss, Mouth Swelling, Nasal Congestion, Ocular Prosthesis, Throat Pain, Toothache, Ringing in Ears, Other Neck: denies: No Symptoms, Decreased ROM, Lumps, Pain on Movement, Stiffness, Swollen Glands, Tenderness, Other Cardiovascular: denies: No Symptoms, Chest Pain, Edema, Palpitations, Shortness of Breath, Other Respiratory: denies: No Symptoms, Cough, Exercise Intolerance, Hemoptysis, Orthopnea, PND, Snoring, SOB, SOB on Exertion, Wheezing, Other Gastrointestinal: denies: No Symptoms, Abdominal Pain, Bloating, Constipation, Diarrhea, Dysphagia, Indigestion, Melena, Nausea, Rectal Bleeding, Vomiting, Vomiting Blood, Other Genitourinary: denies: No Symptoms, Burning, Discharge, Dysuria, Flank Pain, Frequency, Hematuria, Incontinence, Lesions, Menses, Pain, Testicular Mass, Testicular Pain, Testicular Swelling, Urgency, Vaginal Bleeding, Other Breasts: denies: No Symptoms Reported, See HPI, Breast Implants, Discharge from Nipple, Lumps, Pain, Skin Changes, Other Musculoskeletal: denies: No Symptoms, Back Pain, Crepitus, Decreased ROM, Extremity Pain, Joint Pain, Joint Swelling, Muscle Pain, Muscle Cramps, Muscle Weakness, Other Integumentary: denies: No Symptoms, Blister, Bruising, Change in Color, Eczema, Erythema, Incision, Lesions, Lump, Pallor, Pruritis, Rash, Wound, Other Neurological: reports: Change in LOC, Confusion, Weakness. denies: No Symptoms , Change in Speech, Dizziness, Headache, Incoordination, Numbness, Parasthesia, Pre-Existing Deficit, Seizure, Syncope, Tremors, Unsteady Gait, Other Endocrine: denies: No Symptoms, Excessive Sweating, Flushing, Increased Hunger, Increased Thirst, Intolerance to Cold, Intolerance to Heat, Unexplained Weight Gain, Unexplained Weight Loss, Other Hematology/Lymphatic: denies: No Symptoms, Easily Bruised, Excessive Bleeding, Swollen Glands, Other Psychiatric: denies: No Symptoms, Altered Sleep Pattern, Anxiety, Depression, Hallucinations, Panic, Paranoia, Suicidal, Other - Risk Factors Known Risk Factors: Yes: Age, Hypercholesterolemia, Hypertension Vital Signs: Vital Signs Temperature 96.9 F L 08/26/17 11:25 Pulse Rate 139 H 08/26/17 12:06 Respiratory Rate 18 08/26/17 14:00 Blood Pressure 90/41 08/26/17 12:06 O2 Sat by Pulse Oximetry (%) 100 08/26/17 11:25 Constitutional: Yes: No Distress Respiratory: Yes: Diminished, Intubated, Mechanically Ventilated. No: Rales, Rhonchi, Wheezes Cardiovascular: Yes: Tachycardia. No: Regular Rate and Rhythm, Bradycardia, Pulse Irregular, Gallop, Rub, Varicosities JVD: No Carotid Bruit: No PMI: Non-Displaced Heart Sounds: Yes: S1, S2. No: Split S2, S3, S4, Clicks, Gallop, Rub, Bruit Murmur: No: Systolic Murmur, Diastolic Murmur Edema: No Neurological: Yes: Unresponsive. No: Alert, Oriented Psychiatric: No: Alert, Oriented - Other Data Labs, Other Data: INR, PTT INR > 15.00 (0.82-1.09) H* 08/26/17 12:00 Fibrinogen Cancelled 08/26/17 10:04 Troponin, BNP 08/26/17 08/26/17 08/26/17 07:03 07:03 10:04 Troponin I 1.45 H* D Cancelled 5.00 H* D B-Natriuretic Peptide 08/26/17 14:00 Troponin I B-Natriuretic Peptide 02924.09 H Troponin, BNP 08/26/17 08/26/17 08/26/17 07:03 07:03 10:04 Troponin I 1.45 H* D Cancelled 5.00 H* D B-Natriuretic Peptide 08/26/17 14:00 Troponin I B-Natriuretic Peptide 64642.09 H ekg-sinus tach 111bpm, st depressions possible anterolateral and possible inferior ischemia, PVCs Echo: Report Reviewed, Image Reviewed Imaging - Results Chest X-ray: Report Reviewed, Image Reviewed EKG: Report Reviewed, Image Reviewed Other: Report Reviewed, Image Reviewed (tele-Sinus tach vs SVT, PVCs) Assessment/Plan 87 year old man h/o HLD, DMII, TIA, adm after found unresponsive by family not to have coagulopathy likely DIC, likely septic shock, hypoglycemia, as well as noted to have an elevated troponin. Pt seen and examined today, intubated, unresponsive. Unable to provide a history. As per report pt was seen the day prior to admission by his family in his usual state of health. no reported chest pain or sob. ECHO 04/10/17-Normal LV systolic function, mild MR, mild AR, no pericardial effusion Elevated troponin -Possible ACS vs demand ischemia in the setting of presumed septic shock, severe coagulopathy, likely DIC -recc conservative management at this time, not a candidate for cardiac cath at this time -unable to anticoagulate given severe coagulopathy/DIC -unable to use bblocker due to septic shock -fup echo results, last echo 03/2017 as above -cont tele monitoring while in ICU Shock-most likely septic shock -Bcx gram neg bacilli -no current evidence of cardiogenic shock -cont pressor support as per ICU -fup echo results
[2017-08-26 16:39] LABS: MCH 27.9 pg (25.7-33.7); MCHC 31.3 g/dl (32.0-35.9); MEAN CELL VOLUME 88.9 fl (80-96); MEAN PLT VOLUME 8.1 fl (7.5-11.1); PLATELET COUNT 63 K/MM3 (134-434); RDW 15.6 % (11.9-15.9); WHITE BLOOD COUNT 24.1 K/mm3 (4.0-10.0)
[2017-08-26 16:47] LABS: INR 2.12 (0.82-1.09)
[2017-08-26] MEDS ORDERED: NOREPINEPHRINE BITARTRATE 4 MG/4 ML ML IV ONE ×2 (17:04→23:13)
[2017-08-26 17:22] LABS: ALBUMIN 2.1 g/dl (3.4-5.0); ALK PHOS 194 U/L (45-117); ANION GAP 19 (8-16); BILIRUBIN,TOTAL 2.2 mg/dL (0.2-1.0); BLOOD UREA NITROGEN 22 mg/dL (7-18); CALCIUM 7.2 mg/dL (8.5-10.1); CHLORIDE 105 mmol/L (98-107); CO2 17 mmol/L (21-32); CREATININE 2.4 mg/dL (0.7-1.3); GLUCOSE,RANDOM 149 mg/dL (74-106); SGPT/ALT 365 U/L (12-78); SODIUM 141 mmol/L (136-145); TOT PROT 5.2 g/dl (6.4-8.2)
[2017-08-26 17:23] LABS: SGOT/AST 739 U/L (15-37)
[2017-08-26 19:26] LABS: ANISOCYTOSIS 1+
[2017-08-26 19:28] LABS: PLATELET ESTIMATE MOD DECREASED
[2017-08-26] MEDS ORDERED: VASOPRESSIN 20 UNITS/ML VIAL IV ONE (19:59)
[2017-08-26] MEDS: VASOPRESSIN 50 UNITS in SODIUM CHLORIDE 97.5 ML IVPB SCH (20:30)
[2017-08-26 21:33] LABS: HEMATOCRIT 30.8 % (35.4-49); HEMOGLOBIN 9.7 GM/dL (11.7-16.9); MCH 27.8 pg (25.7-33.7); MCHC 31.6 g/dl (32.0-35.9); MEAN CELL VOLUME 88.1 fl (80-96); PLATELET COUNT 52 K/MM3 (134-434); RBC 3.49 M/mm3 (4.00-5.60); RDW 15.3 % (11.9-15.9); WHITE BLOOD COUNT 25.4 K/mm3 (4.0-10.0)
[2017-08-26] MEDS: MUPIROCIN 2% TOPICAL OINTMENT FOR DECOLONIZATION NS SCH (21:40)
[2017-08-26] MEDS: CHLORHEXIDINE GLUCONATE 4% CLEANSER FOR DECOLONIZATION TP SCH (21:40)
[2017-08-26 22:03] LABS: INR 1.65 (0.82-1.09); PROTHROMBIN TIME (PATIENT) 18.7 SEC (9.7-13.0)
[2017-08-26 22:05] LABS: ALLENS TEST POSITIVE; ARTERIAL BLD GAS O2 SATURATION 99.7 % (90-98.9); ARTERIAL BLOOD GAS BASE EXCESS -10.1 meq/l (-2-2); ARTERIAL BLOOD GAS PCO2 50.1 mmHg (35-45)
[2017-08-26 22:06] LABS: ARTERIAL BLOOD GAS pH 7.17 (7.35-7.45)
[2017-08-26 22:12] LABS: ANION GAP 18 (8-16); BLOOD UREA NITROGEN 22 mg/dL (7-18); CHLORIDE 102 mmol/L (98-107); CO2 20 mmol/L (21-32); CREATININE 2.7 mg/dL (0.7-1.3); GLUCOSE,RANDOM 149 mg/dL (74-106); POTASSIUM 3.4 mmol/L (3.5-5.1); SODIUM 140 mmol/L (136-145)
[2017-08-27] MEDS: CLINDAMYCIN 900 MG PREMIX IVPB 900 MG/50 ML BAG IVPB SCH ×2 (02:00→09:24)
[2017-08-27 08:56] LABS: ALBUMIN 2.1 g/dl (3.4-5.0); ALK PHOS 143 U/L (45-117); ANION GAP 21 (8-16); BILIRUBIN,TOTAL 4.3 mg/dL (0.2-1.0); BLOOD UREA NITROGEN 25 mg/dL (7-18); CHLORIDE 99 mmol/L (98-107); CO2 17 mmol/L (21-32); CREATININE 3.2 mg/dL (0.7-1.3); GLUCOSE,RANDOM 119 mg/dL (74-106); MAGNESIUM 1.3 mg/dL (1.8-2.4); PHOSPHOROUS 4.7 mg/dL (2.5-4.9); POTASSIUM 3.5 mmol/L (3.5-5.1); SODIUM 137 mmol/L (136-145); TOT PROT 5.4 g/dl (6.4-8.2)
[2017-08-27 09:02] LABS: BASO % 0.1 % (0-2.0); EOS % 2.1 % (0-4.5); HEMOGLOBIN 9.8 GM/dL (11.7-16.9); LYMPH % 1.3 % (8-40); MCH 28.5 pg (25.7-33.7); MCHC 32.6 g/dl (32.0-35.9); MEAN CELL VOLUME 87.4 fl (80-96); MEAN PLT VOLUME 9.1 fl (7.5-11.1); MONO % 3.3 % (3.8-10.2); NEUT % 93.2 % (42.8-82.8); RBC 3.43 M/mm3 (4.00-5.60); RDW 15.3 % (11.9-15.9); WHITE BLOOD COUNT 29.4 K/mm3 (4.0-10.0)
[2017-08-27 09:11] LABS: SGOT/AST 1999 U/L (15-37); SGPT/ALT 864 U/L (12-78)
[2017-08-27 09:11] LABS: PLATELET COUNT 26 K/MM3 (134-434)
[2017-08-27 09:14] LABS: CALCIUM 6.9 mg/dL (8.5-10.1)
[2017-08-27] MEDS ORDERED: PT OWN MED DRAWER 7, Y5N ONE ×3 (09:19→22:08)
[2017-08-27 09:20] LABS: ACTIVATED PTT 41.1 SECONDS (26.9-34.4); INR 1.86 (0.82-1.09)
[2017-08-27] MEDS: PANTOPRAZOLE SODIUM 40 MG VIAL IVPUSH SCH (09:24)
[2017-08-27] MEDS: HYDROCORTISONE SOD SUCCINATE 100 MG/2 ML VIAL IVPUSH SCH ×3 (09:24→22:16)
[2017-08-27] MEDS: MUPIROCIN 2% TOPICAL OINTMENT FOR DECOLONIZATION NS SCH ×2 (09:25→22:16)
[2017-08-27] MEDS: MEROPENEM 1 GM in DEXTROSE 5%-WATER 100 ML IVPB SCH ×2 (09:26→22:00)
[2017-08-27] MEDS ORDERED: MAGNESIUM SULF 50% (8.12 MEQ/2 ML-1 GM VIAL) IVPB ONE (09:29)
[2017-08-27] MEDS ORDERED: VASOPRESSIN 20 UNITS/ML VIAL IV ONE ×2 (09:36→19:12)
--- NOTE | 2017-08-27 10:31 | PN ---
Progress Note (short form) - Note Progress Note: ID ICU follow up for multiorgan failure and septic shock Micro report GNB in the blood cultures Meropenem CLindalycin and Tobra Vanco initial Rx Selected Entries 08/26/17 08/26/17 21:00 23:00 Temperature 98.5 F Pulse Rate 115 H Respiratory 24 Rate Fraction of 100 Inspired Oxygen (FIO2) Intubated with pressors Laboratory Tests 08/27/17 08/27/17 08/27/17 05:55 06:00 06:00 WBC 29.4 H Plt Count 26 L* D Neutrophils % 93.2 H Lymphocytes % 1.3 L D Monocytes % 3.3 L D INR BUN 25 H Creatinine 3.2 H Lactic Acid 11.5 H* Total Bilirubin 4.3 H D AST 1999 H Creatine Kinase 1152 H 08/27/17 06:04 WBC Plt Count Neutrophils % Lymphocytes % Monocytes % INR 1.86 H BUN Creatinine Lactic Acid Total Bilirubin AST Creatine Kinase Microbiology 08/26/17 07:45 Urine - Urine - Catheterized Urine Culture - Preliminary Lactose Fermenting Neg Bacilli Proteus Species 08/26/17 07:03 Blood - Peripheral Venous Blood Culture - Preliminary Lactose Fermenting Neg Bacilli Proteus Species 08/26/17 07:03 Blood - Peripheral Venous Blood Culture - Preliminary Lactose Fermenting Neg Bacilli Assessment Sepsis with Proteus bacteremia UTI rule out urinary obstruction DIC post blood products Plan Continue Meropenem alone for sepsis Obtain a sonogram Critically ill Prognosis poor
[2017-08-27 10:44] LABS: BASO % 0.2 % (0-2.0); EOS % 2.9 % (0-4.5); HEMATOCRIT 29.2 % (35.4-49); HEMOGLOBIN 9.4 GM/dL (11.7-16.9); LYMPH % 2.9 % (8-40); MCHC 32.4 g/dl (32.0-35.9); MEAN CELL VOLUME 86.6 fl (80-96); MEAN PLT VOLUME 10.3 fl (7.5-11.1); MONO % 3.8 % (3.8-10.2); NEUT % 90.2 % (42.8-82.8); RBC 3.37 M/mm3 (4.00-5.60); RDW 15.7 % (11.9-15.9); WHITE BLOOD COUNT 29.5 K/mm3 (4.0-10.0)
--- NOTE | 2017-08-27 10:48 | PN ---
Teaching Attending Note Name of Resident: Odell Iverson ATTENDING PHYSICIAN STATEMENT I saw and evaluated the patient. I reviewed the resident's note and discussed the case with the resident. I agree with the resident's findings and plan as documented. SUBJECTIVE: Pt seen and examined in the ICU. Remains intubated, unresponsive off sedation. On levophed and vasopressin gtts. Coagulopathy improving s/p blood products. Blood cultures growing gram negative bacilli and proteus. OBJECTIVE: Vital Signs Period Temp Pulse Resp BP Sys/Burt Pulse Ox Last 24 Hr 95.4 F-98.6 F 113-140 18-24 68-112/37-49 100 Intake & Output 08/24/17 08/25/17 08/26/17 08/27/17 23:59 23:59 23:59 23:59 Intake Total 3977 Output Total 100 Balance 3877 Weight 100.471 kg Gen: intubated, unresponsive Heart: tachycardic, regular Lung: scattered rhonchi Abd: soft, nontender Ext: trace edema, cool CBCD WBC 29.4 K/mm3 (4.0-10.0) H 08/27/17 05:55 RBC 3.43 M/mm3 (4.00-5.60) L 08/27/17 05:55 Hgb 9.8 GM/dL (11.7-16.9) L 08/27/17 05:55 Hct 30.0 % (35.4-49) L 08/27/17 05:55 MCV 87.4 fl (80-96) 08/27/17 05:55 MCHC 32.6 g/dl (32.0-35.9) 08/27/17 05:55 RDW 15.3 % (11.9-15.9) 08/27/17 05:55 Plt Count 26 K/MM3 (134-434) L* D 08/27/17 05:55 MPV 9.1 fl (7.5-11.1) 08/27/17 05:55 CMP Sodium 137 mmol/L (136-145) 08/27/17 06:00 Potassium 3.5 mmol/L (3.5-5.1) 08/27/17 06:00 Chloride 99 mmol/L (98-107) 08/27/17 06:00 Carbon Dioxide 17 mmol/L (21-32) L 08/27/17 06:00 Anion Gap 21 (8-16) H 08/27/17 06:00 BUN 25 mg/dL (7-18) H 08/27/17 06:00 Creatinine 3.2 mg/dL (0.7-1.3) H 08/27/17 06:00 Creat Clearance w eGFR 18.47 (>60) 08/27/17 06:00 Calcium 6.9 mg/dL (8.5-10.1) L* 08/27/17 06:00 Total Bilirubin 4.3 mg/dL (0.2-1.0) H D 08/27/17 06:00 AST 1999 U/L (15-37) H 08/27/17 06:00 ALT 864 U/L (12-78) H D 08/27/17 06:00 Alkaline Phosphatase 143 U/L (45-117) H D 08/27/17 06:00 Total Protein 5.4 g/dl (6.4-8.2) L 08/27/17 06:00 Albumin 2.1 g/dl (3.4-5.0) L 08/27/17 06:00 ABG Results ABG pH 7.17 (7.35-7.45) L* 08/26/17 21:45 ABG pCO2 at Pt Temp 50.1 mmHg (35-45) H 08/26/17 21:45 ABG pO2 at Pt Temp 299.0 mmHg (68-100) H* 08/26/17 21:45 ABG HCO3 17.7 meq/L (22-26) L 08/26/17 21:45 ABG O2 Sat (Measured) 99.7 % (90-98.9) H* 08/26/17 21:45 ABG O2 Content 14.2 % vol (15-22) L 08/26/17 21:45 ABG Base Excess -10.1 meq/l (-2-2) L* 08/26/17 21:45 Troponin, BNP 08/26/17 08/26/17 08/26/17 10:04 14:00 21:15 Troponin I 5.00 H* D 6.91 H* D B-Natriuretic Peptide 37430.09 H 08/27/17 06:00 Troponin I 6.63 H* B-Natriuretic Peptide INR, PTT INR 1.86 (0.82-1.09) H 08/27/17 06:04 Fibrinogen 103.0 mg/dL (238-498) L D 08/26/17 21:20 Active Medications Chlorhexidine Gluconate (Hibiclens For Decolonization -) 1 applic TP HS CHANDLER Last Admin: 08/26/17 21:40 Dose: 1 applic Hydrocortisone Sodium Succinate (Solu-Cortef -) 100 mg IVPUSH Q8H CHANDLER Last Admin: 08/27/17 09:24 Dose: 100 mg Norepinephrine Bitartrate 8, (000 mcg/ Dextrose) 500 mls @ 18.75 mls/hr IV TITR CHANDLER; Protocol Last Titration: 08/26/17 11:49 Dose: 12 mcg/min, 45 mls/hr Sodium Bicarbonate 150 meq/ (Dextrose) 1,150 mls @ 125 mls/hr IVPB ASDIR CHANDLER Last Admin: 08/26/17 10:15 Dose: 125 mls/hr Meropenem 1 gm/ Dextrose 100 mls @ 200 mls/hr IVPB BID CHANDLER Last Admin: 08/27/17 09:26 Dose: 200 mls/hr Vasopressin 50 units/ Sodium (Chloride) 100 mls @ 4 mls/hr IVPB ASDIR CHANDLER; Protocol Last Admin: 08/26/17 20:30 Dose: 2 units/hr, 4 mls/hr Magnesium Sulfate (Magnesium Sulf 2 G/50 Ml Bag) 2 gm in 50 mls @ 50 mls/hr IVPB ONCE ONE Stop: 08/27/17 11:59 Mupirocin (Bactroban Ointment (For Decolonization) -) 1 applic NS BID CHANDLER Stop: 08/31/17 21:59 Last Admin: 08/27/17 09:25 Dose: 1 applic Pantoprazole Sodium (Protonix Iv) 40 mg IVPUSH DAILY CHANDLER Last Admin: 08/27/17 09:24 Dose: 40 mg ASSESSMENT AND PLAN: Acute Respiratory Failure Altered Mental Status UTI/Gram Negative Bacteremia Septic Shock Multiorgan Failure DIC Thrombocytopenia Acute Kidney Injury Elevated LFTs likely ischemic injury +Troponins - r/o NSTEMI Metabolic Acidosis - continue antibiotics - f/u cultures - IVF to CVP 8-12 - titrate pressors to maintain MAP >65 - monitor urine output, creatinine - monitor coags, CBC, fibrinogen level - transfuse FFPs, platelets, cryoprecipitate as needed - replete lytes - continue bicarb gtt - monitor ABG - trend cardiac enzymes - echocardiogram - trend lactate - will need CT A/P to r/o infectious etiology when stable for transport - abdominal ultrasound today - prognosis guarded - continue ICU monitoring critical care time spent in reviewing chart, evaluating plan and formulating plan 35 min
[2017-08-27] MEDS ORDERED: MAGNESIUM SULFATE IN WATER 2 GM/50 ML IVPB IVPB ONE (11:00)
[2017-08-27 11:03] LABS: ANION GAP 21 (8-16); CHLORIDE 97 mmol/L (98-107); CO2 16 mmol/L (21-32); CREATININE 3.5 mg/dL (0.7-1.3); GLUCOSE,RANDOM 137 mg/dL (74-106); POTASSIUM 3.6 mmol/L (3.5-5.1); SODIUM 134 mmol/L (136-145)
[2017-08-27 11:17] LABS: ALK PHOS 138 U/L (45-117); BLOOD UREA NITROGEN 26 mg/dL (7-18); TOT PROT 5.2 g/dl (6.4-8.2)
[2017-08-27 11:36] LABS: SGOT/AST 1948 U/L (15-37); SGPT/ALT 896 U/L (12-78)
[2017-08-27 11:37] LABS: PLATELET COUNT 24 K/MM3 (134-434)
[2017-08-27 11:38] LABS: CALCIUM 6.7 mg/dL (8.5-10.1)
[2017-08-27 12:12] LABS: INR 2.09 (0.82-1.09); PROTHROMBIN TIME (PATIENT) 23.6 SEC (9.7-13.0)
[2017-08-27 12:14] LABS: ACTIVATED PTT 44.8 SECONDS (26.9-34.4)
[2017-08-27] MEDS ORDERED: ACETAMINOPHEN 1000 MG/100 ML VIAL (NON FORMULARY) IVPB ONE (12:16)
[2017-08-27] MEDS ORDERED: NOREPINEPHRINE BITARTRATE 4 MG/4 ML ML IV ONE ×2 (12:39→19:12)
[2017-08-27] MEDS ORDERED: PHYTONADIONE 10 MG/1 ML AMP IVPB ONE (12:55)
[2017-08-27 13:55] LABS: MACROCYTOSIS 1+; PLATELET ESTIMATE DECREASED
--- NOTE | 2017-08-27 14:27 | PN ---
Physical Exam: SUBJECTIVE: Patient seen and examined st bed side , intubated , un responsive , no sedation had a fever not improved with tyelenol IV , will recieve plt (plt 24 today AM ). continue abx blood cx with gram negative bacilli OBJECTIVE: Vital Signs Period Temp Pulse Resp BP Sys/Burt Pulse Ox Last 24 Hr 95.4 F-102.2 F 113-137 18-33 68-128/37-49 GENERAL: intubated ,off sedation , un responsive HEAD: NC/AT EYES: pin point pupil B/L EARS, NOSE, THROAT: dry mucous membranes. NECK: supple, central line in place with small bloody oozing LUNGS: decreased breath sound B/L bases HEART: sinus tach, normal S1 and S2 , No MRG ABDOMEN: Soft, nontender, not distended, normoactive bowel sounds, no guarding, no rebound, godinez in place UPPER EXTREMITIES: weak pulse , no edema LOWER EXTREMITIES: weak pulse , no edema NEUROLOGICAL: unresponsive , catchetic, no papinski , pin point pupils Laboratory Results - last 24 hr 08/26/17 08/26/17 08/26/17 12:00 14:00 14:00 WBC RBC Hgb Hct MCV MCH MCHC RDW Plt Count MPV Absolute Neuts (auto) Total Counted Neutrophils % Neutrophils % (Manual) Band Neutrophils % Lymphocytes % Lymphocytes % (Manual) Monocytes % Monocytes % (Manual) Eosinophils % Eosinophils % (Manual) Basophils % Basophils % (Manual) Myelocytes % (Man) Promyelocytes % (Man) Blast Cells % (Manual) Nucleated RBC % Metamyelocytes Differential Comment Platelet Estimate Platelet Comment Poikilocytosis Basophilic Stippling Anisocytosis Macrocytosis Schistocytes PT with INR INR PTT (Actin FS) Fibrinogen Puncture Site ABG pH ABG pCO2 at Pt Temp ABG pO2 at Pt Temp ABG HCO3 ABG O2 Sat (Measured) ABG O2 Content ABG Base Excess Burton Test O2 Delivery Device Oxygen Flow Rate Vent Mode Vent Rate Mechanical Rate PEEP Pressure Support Vent Sodium Potassium Chloride Carbon Dioxide Anion Gap BUN Creatinine Creat Clearance w eGFR POC Glucometer Random Glucose Lactic Acid 10.5 H* Calcium Phosphorus Magnesium Total Bilirubin AST ALT Alkaline Phosphatase Creatine Kinase Creatine Kinase Index CK-MB (CK-2) Troponin I B-Natriuretic Peptide 15583.09 H Total Protein Albumin Random Vancomycin Acetone, Qual Negative 08/26/17 08/26/1718 14:00 15:00 15:00 WBC 24.1 H D RBC 3.60 L Hgb 10.0 L D Hct 32.0 L D MCV 88.9 MCH 27.9 MCHC 31.3 L RDW 15.6 Plt Count 63 L D MPV 8.1 Absolute Neuts (auto) 22.8 Total Counted 100 Neutrophils % No Result Required. Neutrophils % (Manual) 57.0 Band Neutrophils % 30.0 Lymphocytes % No Result Required. Lymphocytes % (Manual) 6.0 L D Monocytes % Monocytes % (Manual) Eosinophils % Eosinophils % (Manual) Basophils % Basophils % (Manual) Myelocytes % (Man) 5 H D Promyelocytes % (Man) Blast Cells % (Manual) Nucleated RBC % 0 Metamyelocytes 2 D Differential Comment Man diff performed Platelet Estimate Mod decreased Platelet Comment Poikilocytosis Basophilic Stippling Few Anisocytosis 1+ Macrocytosis Schistocytes PT with INR 24.00 H INR 2.12 H D PTT (Actin FS) Fibrinogen > 500.0 H Puncture Site ABG pH ABG pCO2 at Pt Temp ABG pO2 at Pt Temp ABG HCO3 ABG O2 Sat (Measured) ABG O2 Content ABG Base Excess Burton Test O2 Delivery Device Oxygen Flow Rate Vent Mode Vent Rate Mechanical Rate PEEP Pressure Support Vent Sodium Potassium Chloride Carbon Dioxide Anion Gap BUN Creatinine Creat Clearance w eGFR POC Glucometer Random Glucose Lactic Acid Calcium Phosphorus Magnesium Total Bilirubin AST ALT Alkaline Phosphatase Creatine Kinase Creatine Kinase Index CK-MB (CK-2) Troponin I B-Natriuretic Peptide Total Protein Albumin Random Vancomycin Acetone, Qual 08/26/17 08/26/17 08/26/17 15:00 18:53 21:15 WBC RBC Hgb Hct MCV MCH MCHC RDW Plt Count MPV Absolute Neuts (auto) Total Counted Neutrophils % Neutrophils % (Manual) Band Neutrophils % Lymphocytes % Lymphocytes % (Manual) Monocytes % Monocytes % (Manual) Eosinophils % Eosinophils % (Manual) Basophils % Basophils % (Manual) Myelocytes % (Man) Promyelocytes % (Man) Blast Cells % (Manual) Nucleated RBC % Metamyelocytes Differential Comment Platelet Estimate Platelet Comment Poikilocytosis Basophilic Stippling Anisocytosis Macrocytosis Schistocytes PT with INR INR PTT (Actin FS) Fibrinogen Puncture Site ABG pH ABG pCO2 at Pt Temp ABG pO2 at Pt Temp ABG HCO3 ABG O2 Sat (Measured) ABG O2 Content ABG Base Excess Burton Test O2 Delivery Device Oxygen Flow Rate Vent Mode Vent Rate Mechanical Rate PEEP Pressure Support Vent Sodium 141 Potassium 3.0 L Chloride 105 Carbon Dioxide 17 L Anion Gap 19 H BUN 22 H Creatinine 2.4 H Creat Clearance w eGFR 25.74 POC Glucometer 190.07488 Random Glucose 149 H D Lactic Acid Calcium 7.2 L Phosphorus Magnesium Total Bilirubin 2.2 H D AST 739 H D ALT 365 H D Alkaline Phosphatase 194 H D Creatine Kinase 992 H Creatine Kinase Index 3.3 CK-MB (CK-2) 33.27 H Troponin I 6.91 H* D B-Natriuretic Peptide Total Protein 5.2 L Albumin 2.1 L Random Vancomycin Acetone, Qual 08/26/17 08/26/17 08/26/17 21:20 21:20 21:20 WBC 25.4 H RBC 3.49 L Hgb 9.7 L Hct 30.8 L MCV 88.1 MCH 27.8 MCHC 31.6 L RDW 15.3 Plt Count 52 L MPV 9.0 D Absolute Neuts (auto) 23.7 Total Counted Neutrophils % No Result Required. Neutrophils % (Manual) No Result Required. Band Neutrophils % Lymphocytes % No Result Required. Lymphocytes % (Manual) Monocytes % Monocytes % (Manual) Eosinophils % Eosinophils % (Manual) Basophils % Basophils % (Manual) Myelocytes % (Man) Promyelocytes % (Man) Blast Cells % (Manual) Nucleated RBC % 0 Metamyelocytes Differential Comment Platelet Estimate Platelet Comment Poikilocytosis Basophilic Stippling Anisocytosis Macrocytosis Schistocytes PT with INR INR PTT (Actin FS) 43.0 H D Fibrinogen Puncture Site ABG pH ABG pCO2 at Pt Temp ABG pO2 at Pt Temp ABG HCO3 ABG O2 Sat (Measured) ABG O2 Content ABG Base Excess Burton Test O2 Delivery Device Oxygen Flow Rate Vent Mode Vent Rate Mechanical Rate PEEP Pressure Support Vent Sodium 140 Potassium 3.4 L Chloride 102 Carbon Dioxide 20 L Anion Gap 18 H BUN 22 H Creatinine 2.7 H Creat Clearance w eGFR POC Glucometer Random Glucose 149 H Lactic Acid Calcium 7.0 L Phosphorus Magnesium Total Bilirubin AST ALT Alkaline Phosphatase Creatine Kinase Creatine Kinase Index CK-MB (CK-2) Troponin I B-Natriuretic Peptide Total Protein Albumin Random Vancomycin Acetone, Qual 08/26/17 08/26/17 08/26/17 21:20 21:24 21:45 WBC RBC Hgb Hct MCV MCH MCHC RDW Plt Count MPV Absolute Neuts (auto) Total Counted Neutrophils % Neutrophils % (Manual) Band Neutrophils % Lymphocytes % Lymphocytes % (Manual) Monocytes % Monocytes % (Manual) Eosinophils % Eosinophils % (Manual) Basophils % Basophils % (Manual) Myelocytes % (Man) Promyelocytes % (Man) Blast Cells % (Manual) Nucleated RBC % Metamyelocytes Differential Comment Platelet Estimate Platelet Comment Poikilocytosis Basophilic Stippling Anisocytosis Macrocytosis Schistocytes PT with INR 18.70 H INR 1.65 H PTT (Actin FS) Fibrinogen 103.0 L D Puncture Site Left radial ABG pH 7.17 L* ABG pCO2 at Pt Temp 50.1 H ABG pO2 at Pt Temp 299.0 H* ABG HCO3 17.7 L ABG O2 Sat (Measured) 99.7 H* ABG O2 Content 14.2 L ABG Base Excess -10.1 L* Burton Test Positive O2 Delivery Device Mech vent Oxygen Flow Rate 100% Vent Mode A/c Vent Rate 18 Mechanical Rate Yes PEEP 5.0 Pressure Support Vent 500 Sodium Potassium Chloride Carbon Dioxide Anion Gap BUN Creatinine Creat Clearance w eGFR POC Glucometer 174.63327 Random Glucose Lactic Acid Calcium Phosphorus Magnesium Total Bilirubin AST ALT Alkaline Phosphatase Creatine Kinase Creatine Kinase Index CK-MB (CK-2) Troponin I B-Natriuretic Peptide Total Protein Albumin Random Vancomycin Acetone, Qual 08/27/17 08/27/17 08/27/17 05:18 05:55 06:00 WBC 29.4 H RBC 3.43 L Hgb 9.8 L Hct 30.0 L MCV 87.4 MCH 28.5 MCHC 32.6 RDW 15.3 Plt Count 26 L* D MPV 9.1 Absolute Neuts (auto) 27.4 Total Counted Neutrophils % 93.2 H Neutrophils % (Manual) 61.1 Band Neutrophils % 13.0 Lymphocytes % 1.3 L D Lymphocytes % (Manual) 3.7 L D Monocytes % 3.3 L D Monocytes % (Manual) 4 D Eosinophils % 2.1 D Eosinophils % (Manual) 0.0 D Basophils % 0.1 Basophils % (Manual) 0.0 Myelocytes % (Man) 6 H Promyelocytes % (Man) 0 Blast Cells % (Manual) 0 Nucleated RBC % 0 Metamyelocytes 13 H D Differential Comment Platelet Estimate Decreased Platelet Comment Poikilocytosis 2+ Basophilic Stippling Anisocytosis Macrocytosis 1+ Schistocytes 1+ PT with INR INR PTT (Actin FS) Fibrinogen Puncture Site ABG pH ABG pCO2 at Pt Temp ABG pO2 at Pt Temp ABG HCO3 ABG O2 Sat (Measured) ABG O2 Content ABG Base Excess Burton Test O2 Delivery Device Oxygen Flow Rate Vent Mode Vent Rate Mechanical Rate PEEP Pressure Support Vent Sodium Potassium Chloride Carbon Dioxide Anion Gap BUN Creatinine Creat Clearance w eGFR POC Glucometer 143.08146 Random Glucose Lactic Acid Calcium Phosphorus Magnesium Total Bilirubin AST ALT Alkaline Phosphatase Creatine Kinase Creatine Kinase Index CK-MB (CK-2) Troponin I B-Natriuretic Peptide Total Protein Albumin Random Vancomycin 7.47 Acetone, Qual 08/27/17 08/27/17 08/27/17 06:00 06:00 06:04 WBC RBC Hgb Hct MCV MCH MCHC RDW Plt Count MPV Absolute Neuts (auto) Total Counted Neutrophils % Neutrophils % (Manual) Band Neutrophils % Lymphocytes % Lymphocytes % (Manual) Monocytes % Monocytes % (Manual) Eosinophils % Eosinophils % (Manual) Basophils % Basophils % (Manual) Myelocytes % (Man) Promyelocytes % (Man) Blast Cells % (Manual) Nucleated RBC % Metamyelocytes Differential Comment Platelet Estimate Platelet Comment Poikilocytosis Basophilic Stippling Anisocytosis Macrocytosis Schistocytes PT with INR 21.00 H INR 1.86 H PTT (Actin FS) 41.1 H Fibrinogen Puncture Site ABG pH ABG pCO2 at Pt Temp ABG pO2 at Pt Temp ABG HCO3 ABG O2 Sat (Measured) ABG O2 Content ABG Base Excess Burton Test O2 Delivery Device Oxygen Flow Rate Vent Mode Vent Rate Mechanical Rate PEEP Pressure Support Vent Sodium 137 Potassium 3.5 Chloride 99 Carbon Dioxide 17 L Anion Gap 21 H BUN 25 H Creatinine 3.2 H Creat Clearance w eGFR 18.47 POC Glucometer Random Glucose 119 H D Lactic Acid 11.5 H* Calcium 6.9 L* Phosphorus 4.7 Magnesium 1.3 L D Total Bilirubin 4.3 H D AST 1999 H ALT 864 H D Alkaline Phosphatase 143 H D Creatine Kinase 1152 H Creatine Kinase Index 2.6 CK-MB (CK-2) 30.06 H Troponin I 6.63 H* B-Natriuretic Peptide Total Protein 5.4 L Albumin 2.1 L Random Vancomycin Acetone, Qual 08/27/17 08/27/17 08/27/17 09:45 09:45 09:45 WBC 29.5 H RBC 3.37 L Hgb 9.4 L Hct 29.2 L MCV 86.6 MCH 28.0 MCHC 32.4 RDW 15.7 Plt Count 24 L* MPV 10.3 D Absolute Neuts (auto) 26.6 Total Counted Neutrophils % 90.2 H Neutrophils % (Manual) Band Neutrophils % Lymphocytes % 2.9 L D Lymphocytes % (Manual) Monocytes % 3.8 Monocytes % (Manual) Eosinophils % 2.9 Eosinophils % (Manual) Basophils % 0.2 Basophils % (Manual) Myelocytes % (Man) Promyelocytes % (Man) Blast Cells % (Manual) Nucleated RBC % 0 Metamyelocytes Differential Comment Platelet Estimate Platelet Comment Poikilocytosis Basophilic Stippling Anisocytosis Macrocytosis Schistocytes PT with INR 23.60 H INR 2.09 H PTT (Actin FS) 44.8 H Fibrinogen 112.0 L Puncture Site ABG pH ABG pCO2 at Pt Temp ABG pO2 at Pt Temp ABG HCO3 ABG O2 Sat (Measured) ABG O2 Content ABG Base Excess Burton Test O2 Delivery Device Oxygen Flow Rate Vent Mode Vent Rate Mechanical Rate PEEP Pressure Support Vent Sodium Potassium Chloride Carbon Dioxide Anion Gap BUN Creatinine Creat Clearance w eGFR POC Glucometer Random Glucose Lactic Acid Calcium Phosphorus Magnesium Total Bilirubin AST ALT Alkaline Phosphatase Creatine Kinase Creatine Kinase Index CK-MB (CK-2) Troponin I B-Natriuretic Peptide Total Protein Albumin Random Vancomycin Acetone, Qual 08/27/17 09:45 WBC RBC Hgb Hct MCV MCH MCHC RDW Plt Count MPV Absolute Neuts (auto) Total Counted Neutrophils % Neutrophils % (Manual) Band Neutrophils % Lymphocytes % Lymphocytes % (Manual) Monocytes % Monocytes % (Manual) Eosinophils % Eosinophils % (Manual) Basophils % Basophils % (Manual) Myelocytes % (Man) Promyelocytes % (Man) Blast Cells % (Manual) Nucleated RBC % Metamyelocytes Differential Comment Platelet Estimate Platelet Comment Poikilocytosis Basophilic Stippling Anisocytosis Macrocytosis Schistocytes PT with INR INR PTT (Actin FS) Fibrinogen Puncture Site ABG pH ABG pCO2 at Pt Temp ABG pO2 at Pt Temp ABG HCO3 ABG O2 Sat (Measured) ABG O2 Content ABG Base Excess Burton Test O2 Delivery Device Oxygen Flow Rate Vent Mode Vent Rate Mechanical Rate PEEP Pressure Support Vent Sodium 134 L Potassium 3.6 Chloride 97 L Carbon Dioxide 16 L Anion Gap 21 H BUN 26 H Creatinine 3.5 H Creat Clearance w eGFR 16.65 POC Glucometer Random Glucose 137 H Lactic Acid Calcium 6.7 L* Phosphorus Magnesium Total Bilirubin 4.0 H AST 1948 H ALT 896 H Alkaline Phosphatase 138 H Creatine Kinase 1189 H Creatine Kinase Index 2.1 CK-MB (CK-2) 25.70 H Troponin I 5.94 H* B-Natriuretic Peptide Total Protein 5.2 L Albumin 2.0 L Random Vancomycin Acetone, Qual Active Medications Generic Name Dose Route Start Last Admin Trade Name Freq PRN Reason Stop Dose Admin Chlorhexidine Gluconate 1 applic 08/26/17 22:00 08/26/17 21:40 Hibiclens For Decolonization - TP 1 applic HS CHANDLER Administration Hydrocortisone Sodium Succinate 100 mg 08/26/17 15:00 08/27/17 09:24 Solu-Cortef - IVPUSH 100 mg Q8H CHANDLER Administration Norepinephrine Bitartrate 8, 500 mls @ 18.75 mls/hr 08/26/17 09:30 08/26/17 11:49 000 mcg/ Dextrose IV 12 mcg/min TITR CHANDLER 45 mls/hr Titration Protocol 5 MCG/MIN Sodium Bicarbonate 150 meq/ 1,150 mls @ 125 mls/hr 08/26/17 10:00 08/26/17 10 :15 Dextrose IVPB 125 mls/hr ASDIR CHANDLER Administration Meropenem 1 gm/ Dextrose 100 mls @ 200 mls/hr 08/26/17 15:00 08/27/17 09:26 IVPB 200 mls/hr BID CHANDLER Administration Vasopressin 50 units/ Sodium 100 mls @ 4 mls/hr 08/26/17 20:15 08/26/17 20:30 Chloride IVPB 2 units/hr ASDIR CHANDLER 4 mls/hr Administration Protocol 2 UNITS/HR Mupirocin 1 applic 08/26/17 22:00 08/27/17 09:25 Bactroban Ointment (For Decolonization) - NS 08/31/17 21:59 1 applic BID CHANDLER Administration Pantoprazole Sodium 40 mg 08/26/17 12:45 08/27/17 09:24 Protonix Iv IVPUSH 40 mg DAILY CHANDLER Administration CBC, BMP 08/27/17 09:45 08/27/17 09:45 ASSESSMENT/PLAN: 87 year old male with H/O DM, HLD, BPH , chronic godinez presented to ED after found unresponsive in his bed . In ED pt was found to have sever shock,sever coagulopathy, multiorgan failure and was admitted to be monitored in ICU. #Neurology _AMS * intubated , sedated, un responsive * last seen in usual state of health last night * pin point pupils * monitor in ICU * Head CT negative for acute pathology #ID -shock unclear etiology likely septic vs cardiogenic unlikely -Lactic acidosis * presented with hypotension , hypothermia , LA 15.4, tachycardia * 4 L IV fluids in ED , Levofed GTT, Becarb GTT started in ED continue * broad abx coverage Charley arora in ED , ID consulted DR. 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 * can not give ASA or BB due to septic shock and hematuria * supportive management for now * cardiology on Board DR Bowling recommendations appreciated * trend trop, repeat EKG in 2 hours * daily weight * VItals Q 4hr #Pulmonary - Acute hypoxic hypercapnic respiratory failure respiratory acidosis with metabloic acidosis * ABG , Carboxymethhymoglobin ,Methhemoglobin * intubated sedated * CXR negative for acute pathology * ABG with metabolic acidosis , repeat in AM * O2 to keep O2 sat > 90 % #Hem/onc - sever coagulopathy possible DIC -Thrombocytopenia * Type and screen * S/P FFP,platelets , PRBCs * transfuse as needed to keep Hgb> 8 * F/U PT, PTT, INR, Fibrinogen level CBC, repeat coag today at 6 pm * Dr Strickland recommendations appreciated added DDAVP * Hydrocortisone sod succinate 100 mg IVpush Q 8hr #Metabolic -Hypokalemia , resolved -Lactic acidosis -Metabolic acidosis * continue IV fluids, empiric AbX, #GI: _ Elevated LFTS likey due to ischemia * worsening today trends LFTS * Continue with supportive therapy IV fluids and pressors * CT abdomen pelvic when stable * hep panel * occult blood * protonix 40 mg iv push daily #Nephro SILVESTRE on CKD likely due to sepsis -BPH - Hematuria * godinez in place * hold Flomax 0.4 mg * monitor I& O , BUN/CR * renal US when stable #Endo - DM on Metfromin 500 at home * hold metformin , ISS, BGM Q4hr #FEN * F: S/p 4 L NS , continue NS @ 100 CC/hr * E: hypokalemia, resolved , monitor BMP * N: NPO for now , NG/OG in place Proph Dvts: SCds B/L GI: Protonix 40 IV daily Dispo * monitor in ICU * very poor prognosis due to multi organ failure Visit type - Emergency Visit Emergency Visit: Yes ED Registration Date: 08/26/17 Care time: The patient presented to the Emergency Department on the above date and was hospitalized for further evaluation of their emergent condition. - New Patient This patient is new to me today: No - Critical Care Critical Care patient: Yes Total Critical Care Time (in minutes): 45 Critical Care Statement: The care of this patient involved high complexity decision making to prevent further life threatening deterioration of the patient 's condition and/or to evaluate & treat vital organ system(s) failure or risk of failure.
[2017-08-27] MEDS: NOREPINEPHRINE BITARTRATE 8,000 MCG in DEXTROSE 5%-WATER - 492 ML IV SCH (14:41)
[2017-08-27] MEDS: SODIUM BICARBONATE 8.4% - 150 MEQ in DEXTROSE 5%-WATER - 1,000 ML IVPB SCH (14:41)
[2017-08-27] MEDS ORDERED: PHENYLEPHRINE HCL 20,000 MCG in SODIUM CHLORIDE 248 ML IVPB SCH (15:15)
--- NOTE | 2017-08-27 15:26 | PN ---
Progress Note, Physician Chief Complaint: Cardiology follow up Intubated/unresponsive On Norepi and vasopressin. Echocardiogram with preserved LV function and no WMA Telem sinus tachycardia History of Present Illness: 87 year old man h/o HLD, DMII, TIA, adm after found unresponsive by family not to have coagulopathy likely DIC, septic shock, hypoglycemia, as well as noted to have an elevated troponin. - Current Medication List Current Medications: Active Medications Chlorhexidine Gluconate (Hibiclens For Decolonization -) 1 applic TP HS CHANDLER Last Admin: 08/26/17 21:40 Dose: 1 applic Hydrocortisone Sodium Succinate (Solu-Cortef -) 100 mg IVPUSH Q8H CH[facility]LER Last Admin: 08/27/17 09:24 Dose: 100 mg Norepinephrine Bitartrate 8, (000 mcg/ Dextrose) 500 mls @ 18.75 mls/hr IV TITR CHANDLER; Protocol Last Admin: 08/27/17 14:41 Dose: 16 mcg/min, 60 mls/hr Sodium Bicarbonate 150 meq/ (Dextrose) 1,150 mls @ 125 mls/hr IVPB ASDIR CHANDLER Last Admin: 08/27/17 14:41 Dose: 125 mls/hr Meropenem 1 gm/ Dextrose 100 mls @ 200 mls/hr IVPB BID CH[facility]LER Last Admin: 08/27/17 09:26 Dose: 200 mls/hr Vasopressin 50 units/ Sodium (Chloride) 100 mls @ 4 mls/hr IVPB ASDIR CHANDLER; Protocol Last Admin: 08/26/17 20:30 Dose: 2 units/hr, 4 mls/hr Phenylephrine HCl 20,000 mcg/ (Sodium Chloride) 250 mls @ 75 mls/hr IVPB ASDIR CHANDLER; Protocol Mupirocin (Bactroban Ointment (For Decolonization) -) 1 applic NS BID CHANDLER Stop: 08/31/17 21:59 Last Admin: 08/27/17 09:25 Dose: 1 applic Pantoprazole Sodium (Protonix Iv) 40 mg IVPUSH DAILY CH[facility]LER Last Admin: 08/27/17 09:24 Dose: 40 mg - Objective Vital Signs: Vital Signs Temperature 103 F H 08/27/17 15:00 Pulse Rate 103 H 08/27/17 15:00 Respiratory Rate 32 H 08/27/17 15:00 Blood Pressure 90/41 08/27/17 15:00 O2 Sat by Pulse Oximetry (%) 100 08/26/17 11:25 Constitutional: Yes: No Distress, Calm Eyes: Yes: Conjunctiva Clear HENT: Yes: Atraumatic, Normocephalic Neck: Yes: Supple, Trachea Midline Cardiovascular: Yes: Regular Rate and Rhythm, Tachycardia, S1, S2 Respiratory: Yes: Regular, CTA Bilaterally Gastrointestinal: Yes: Normal Bowel Sounds, Soft Edema: No Labs: CBC, BMP 08/27/17 09:45 08/27/17 09:45 INR, PTT INR 2.09 (0.82-1.09) H 08/27/17 09:45 Fibrinogen 112.0 mg/dL (238-498) L 08/27/17 09:45 - ....Imaging Chest X-ray: Report Reviewed EKG: Image Reviewed Problem List - Problems (1) DIC (disseminated intravascular coagulation) Code(s): D65 - DISSEMINATED INTRAVASCULAR COAGULATION (2) SILVESTRE (acute kidney injury) Code(s): N17.9 - ACUTE KIDNEY FAILURE, UNSPECIFIED Assessment/Plan 87 year old man h/o HLD, DMII, TIA, adm after found unresponsive by family not to have coagulopathy likely DIC, septic shock, hypoglycemia, as well as noted to have an elevated troponin. Has proteus sepsis and is intubated requiring high dose pressor support. ECHO today -Normal LV systolic function, mild MR, mild AR, no pericardial effusion Elevated troponin -Demand ischemia in the setting of septic shock, severe coagulopathy, likely DIC -recc conservative management at this time, not a candidate for cardiac cath at this time -unable to anticoagulate given severe coagulopathy/DIC -unable to use bblocker due to septic shock Shock-most likely septic shock -no current evidence of cardiogenic shock -cont pressor support as per ICU Will see as needed.
--- NOTE | 2017-08-27 16:41 | PN ---
Progress Note (short form) - Note Progress Note: condition remains the same O/E: General: Intubated HEENT: NCAT Cor: Tachy Resp: Mechanically ventilating Ext: Mild edema Last Vital Signs Temp Pulse Resp BP Pulse Ox 96.9 F L 139 H 18 90/41 100 08/26/17 11:25 08/26/17 12:06 08/26/17 11:25 08/26/17 12:06 08/26/17 11:25 CBC, BMP 08/26/17 10:04 08/26/17 10:04 Current Medications Generic Name Dose Route Start Last Admin Trade Name Freq PRN Reason Stop Dose Admin Chlorhexidine Gluconate 1 applic 08/26/17 22:00 Hibiclens For Decolonization - TP HS CHANDLER Desmopressin Acetate 27 mcg 08/26/17 14:13 Ddavp Injection - IVPB 08/26/17 14:14 ONCE ONE Norepinephrine Bitartrate 8, 500 mls @ 18.75 mls/hr 08/26/17 09:30 08/26/17 11:49 000 mcg/ Dextrose IV 12 mcg/min TITR CHANDLER 45 mls/hr Titration Protocol 5 MCG/MIN Sodium Bicarbonate 150 meq/ 1,150 mls @ 125 mls/hr 08/26/17 10:00 08/26/17 10 :15 Dextrose IVPB 125 mls/hr ASDIR CHANDLER Administration Potassium Chloride 10 meq in 100 mls @ 100 mls/hr 08/26/17 14:15 Potassium Chloride 10 Meq Premix Ivpb - IVPB 08/26/17 17:14 Q1H CH[facility]LER Potassium Chloride/Sodium Chloride 20 meq in 1,000 mls @ 100 mls/hr 08/26/17 12:45 Ns+20 Meq Kcl - IV ASDIR CHANDLER Clindamycin Phosphate 900 mg in 50 mls @ 100 mls/hr 08/26/17 14:15 Cleocin 900 Mg Premix Ivpb - IVPB Q8H-IV CAHNDLER Protocol Mupirocin 1 applic 08/26/17 22:00 Bactroban Ointment (For Decolonization) - NS 08/31/17 21:59 BID CHANDLER Pantoprazole Sodium 40 mg 08/26/17 12:45 Protonix Iv IVPUSH DAILY CHANDLER Critically ill- GNR septic shock DIC from above Condition unchanged Products as necessary GOC
[2017-08-27 16:46] LABS: ARTERIAL BLOOD GAS PCO2 30.9 mmHg (35-45); ARTERIAL BLOOD GAS pH 7.28 (7.35-7.45)
[2017-08-27 16:47] LABS: ALLENS TEST POSITIVE; ARTERIAL BLD GAS O2 SATURATION 99.4 % (90-98.9)
[2017-08-27 16:51] LABS: ARTERIAL BLOOD GAS BASE EXCESS -11.5 meq/l (-2-2)
[2017-08-27 19:05] LABS: PROTHROMBIN TIME (PATIENT) 22.6 SEC (9.7-13.0)
[2017-08-27 19:08] LABS: ACTIVATED PTT 42.4 SECONDS (26.9-34.4)
[2017-08-27] MEDS: VASOPRESSIN 50 UNITS in SODIUM CHLORIDE 97.5 ML IVPB SCH ×2 (21:07→21:09)
[2017-08-27 21:55] LABS: HEMATOCRIT 24.9 % (35.4-49); HEMOGLOBIN 7.9 GM/dL (11.7-16.9); LYMPH % 4.4 % (8-40); MCH 27.8 pg (25.7-33.7); MCHC 31.8 g/dl (32.0-35.9); MEAN CELL VOLUME 87.5 fl (80-96); MEAN PLT VOLUME 8.9 fl (7.5-11.1); MONO % 4.1 % (3.8-10.2); NEUT % 89.2 % (42.8-82.8); PLATELET COUNT 95 K/MM3 (134-434); RBC 2.85 M/mm3 (4.00-5.60); WHITE BLOOD COUNT 25.3 K/mm3 (4.0-10.0)
[2017-08-27 21:56] LABS: BASO % 0.2 % (0-2.0); EOS % 2.1 % (0-4.5)
[2017-08-27] MEDS: CHLORHEXIDINE GLUCONATE 4% CLEANSER FOR DECOLONIZATION TP SCH (22:16)
[2017-08-27 22:26] LABS: ALBUMIN 2.1 g/dl (3.4-5.0); ANION GAP 24 (8-16); BILIRUBIN,TOTAL 3.4 mg/dL (0.2-1.0); BLOOD UREA NITROGEN 31 mg/dL (7-18); CHLORIDE 94 mmol/L (98-107); CO2 16 mmol/L (21-32); CREATININE 3.9 mg/dL (0.7-1.3); GLUCOSE,RANDOM 85 mg/dL (74-106); POTASSIUM 4.1 mmol/L (3.5-5.1); SODIUM 134 mmol/L (136-145); TOT PROT 5.3 g/dl (6.4-8.2)
[2017-08-27 22:31] LABS: ALK PHOS 127 U/L (45-117)
[2017-08-27 22:33] LABS: CALCIUM 6.8 mg/dL (8.5-10.1); SGOT/AST 1734 U/L (15-37); SGPT/ALT 850 U/L (12-78)
[2017-08-28 00:03] LABS: ACANTHOCYTES 1+; ANISOCYTOSIS 2+; MACROCYTOSIS 2+; OVALOCYTE 1+; PLATELET ESTIMATE SLT DECREASE
[2017-08-28 00:22] LABS: BASO % 0.2 % (0-2.0); HEMATOCRIT 23.8 % (35.4-49); HEMOGLOBIN 7.6 GM/dL (11.7-16.9); LYMPH % 3.7 % (8-40); MCH 27.6 pg (25.7-33.7); MCHC 31.9 g/dl (32.0-35.9); MEAN CELL VOLUME 86.6 fl (80-96); MEAN PLT VOLUME 8.3 fl (7.5-11.1); NEUT % 90.1 % (42.8-82.8); PLATELET COUNT 63 K/MM3 (134-434); RBC 2.75 M/mm3 (4.00-5.60); WHITE BLOOD COUNT 28.4 K/mm3 (4.0-10.0)
[2017-08-28 00:51] LABS: ALBUMIN 1.9 g/dl (3.4-5.0); ANION GAP 27 (8-16); BILIRUBIN,TOTAL 3.3 mg/dL (0.2-1.0); BLOOD UREA NITROGEN 33 mg/dL (7-18); CHLORIDE 92 mmol/L (98-107); CO2 15 mmol/L (21-32); CREATININE 4.2 mg/dL (0.7-1.3); GLUCOSE,RANDOM 79 mg/dL (74-106); POTASSIUM 4.4 mmol/L (3.5-5.1); SODIUM 134 mmol/L (136-145); TOT PROT 4.9 g/dl (6.4-8.2)
[2017-08-28 00:56] LABS: INR 2.12 (0.82-1.09); PROTHROMBIN TIME (PATIENT) 23.9 SEC (9.7-13.0)
[2017-08-28 00:57] LABS: ALK PHOS 119 U/L (45-117); SGOT/AST 1534 U/L (15-37); SGPT/ALT 812 U/L (12-78)
[2017-08-28 00:58] LABS: CALCIUM 6.5 mg/dL (8.5-10.1)
[2017-08-28] MEDS ORDERED: CALCIUM GLUCONATE 10% - 1,000 MG/10 ML VIAL IVPB ONE (02:00)
[2017-08-28] MEDS ORDERED: NOREPINEPHRINE BITARTRATE 4 MG/4 ML ML IV ONE ×2 (02:57→12:47)
[2017-08-28 06:07] LABS: HBsAG SCREEN Negative (Negative); HEPATITIS B CORE ANTIBODY Negative (Negative)
[2017-08-28 06:09] LABS: EOS % 1.9 % (0-4.5); HEMATOCRIT 23.5 % (35.4-49); HEMOGLOBIN 7.7 GM/dL (11.7-16.9); LYMPH % 2.5 % (8-40); MCH 28.1 pg (25.7-33.7); MCHC 32.9 g/dl (32.0-35.9); MEAN CELL VOLUME 85.7 fl (80-96); MEAN PLT VOLUME 9.1 fl (7.5-11.1); MONO % 2.9 % (3.8-10.2); NEUT % 92.7 % (42.8-82.8); PLATELET COUNT 46 K/MM3 (134-434); RBC 2.74 M/mm3 (4.00-5.60); RDW 15.7 % (11.9-15.9)
[2017-08-28 06:20] LABS: WHITE BLOOD COUNT 31.1 K/mm3 (4.0-10.0)
[2017-08-28 06:32] LABS: ALBUMIN 1.9 g/dl (3.4-5.0); ANION GAP 26 (8-16); CHLORIDE 88 mmol/L (98-107); CO2 16 mmol/L (21-32); POTASSIUM 4.7 mmol/L (3.5-5.1); SODIUM 130 mmol/L (136-145)
--- NOTE | 2017-08-28 06:41 | PN ---
Progress Note, Physician Chief Complaint: ID Overall about the same Intubated requiring pressor support Meropenem continues pending final sensitivities - Current Medication List Current Medications: Active Medications Chlorhexidine Gluconate (Hibiclens For Decolonization -) 1 applic TP HS CHANDLER Last Admin: 08/27/17 22:16 Dose: 1 applic Hydrocortisone Sodium Succinate (Solu-Cortef -) 100 mg IVPUSH Q8H CH[facility]LER Last Admin: 08/27/17 22:16 Dose: 100 mg Norepinephrine Bitartrate 8, (000 mcg/ Dextrose) 500 mls @ 18.75 mls/hr IV TITR CHANDLER; Protocol Last Admin: 08/27/17 14:41 Dose: 16 mcg/min, 60 mls/hr Sodium Bicarbonate 150 meq/ (Dextrose) 1,150 mls @ 125 mls/hr IVPB ASDIR CHANDLER Last Admin: 08/27/17 14:41 Dose: 125 mls/hr Meropenem 1 gm/ Dextrose 100 mls @ 200 mls/hr IVPB BID CH[facility]ER Last Admin: 08/27/17 22:00 Dose: 200 mls/hr Vasopressin 50 units/ Sodium (Chloride) 100 mls @ 4 mls/hr IVPB ASDIR CHANDLER; Protocol Last Admin: 08/27/17 21:09 Dose: 4 units/hr, 8 mls/hr Phenylephrine HCl 20,000 mcg/ (Sodium Chloride) 250 mls @ 75 mls/hr IVPB ASDIR CHANDLER; Protocol Last Admin: 08/27/17 15:43 Dose: Not Given Mupirocin (Bactroban Ointment (For Decolonization) -) 1 applic NS BID [facility]ER Stop: 08/31/17 21:59 Last Admin: 08/27/17 22:16 Dose: 1 applic Pantoprazole Sodium (Protonix Iv) 40 mg IVPUSH DAILY CH[facility]LER Last Admin: 08/27/17 09:24 Dose: 40 mg - Objective Vital Signs: Vital Signs Temperature 100.2 F H 08/28/17 06:00 Pulse Rate 115 H 08/28/17 06:00 Respiratory Rate 27 H 08/28/17 06:00 Blood Pressure 103/44 08/28/17 06:00 O2 Sat by Pulse Oximetry (%) 100 08/26/17 11:25 Labs: CBC, BMP 08/28/17 05:05 INR, PTT INR 2.12 (0.82-1.09) H 08/28/17 00:01 Fibrinogen 173.0 mg/dL (238-498) L 08/28/17 00:01 Assessment/Plan Microbiology 08/26/17 07:45 Urine - Urine - Catheterized Urine Culture - Preliminary Lactose Fermenting Neg Bacilli Proteus Species 08/26/17 07:03 Blood - Peripheral Venous Blood Culture - Preliminary Lactose Fermenting Neg Bacilli Proteus Species 08/26/17 07:03 Blood - Peripheral Venous Blood Culture - Preliminary Lactose Fermenting Neg Bacilli Laboratory Tests 08/28/17 08/28/17 00:01 05:05 WBC 31.1 H* Hgb 7.7 L Hct 23.5 L Plt Count 46 L D BUN 33 H Creatinine 4.2 H Total Bilirubin 3.3 H Alkaline Phosphatase 119 H Assessment Septic shock with multiorgan failure Diabetes, Proteus bacteremia ( urinary source) and DIC with active bleeding per nursing. S/P blood products Plan Prognosis remains poor Final culture is pending Jer SNELL
[2017-08-28 06:42] LABS: ALK PHOS 120 U/L (45-117); BILIRUBIN,TOTAL 3.5 mg/dL (0.2-1.0); BLOOD UREA NITROGEN 35 mg/dL (7-18); CREATININE 4.3 mg/dL (0.7-1.3); MAGNESIUM 1.6 mg/dL (1.8-2.4); PHOSPHOROUS 6.7 mg/dL (2.5-4.9); TOT PROT 4.9 g/dl (6.4-8.2)
[2017-08-28] MEDS: HYDROCORTISONE SOD SUCCINATE 100 MG/2 ML VIAL IVPUSH SCH ×2 (07:05→15:25)
[2017-08-28 07:19] LABS: SGOT/AST 1497 U/L (15-37); SGPT/ALT 786 U/L (12-78)
--- NOTE | 2017-08-28 07:19 | PN ---
Physical Exam: SUBJECTIVE: Patient seen and examined at bed side in ICU,intubated off sedation on pressors spiking fever 103 over night , received plt yesterday improve to plt 98 and then drop to 64. oozing from left ear OBJECTIVE: Vital Signs Period Temp Pulse Resp BP Sys/Burt Pulse Ox Last 24 Hr 98.8 F-103.6 F 103-123 26-35 80-132/36-55 GENERAL: intubated ,off sedation , unresponsive HEAD: NC/AT EYES: pin point pupil B/L EARS, NOSE, THROAT: dry mucous membranes. NECK: supple, central line in place with small bloody oozing LUNGS: decreased breath sound B/L bases HEART: sinus tach, normal S1 and S2 , No MRG ABDOMEN: Soft, nontender, not distended, normoactive bowel sounds, no guarding, no rebound, Godinez in place UPPER EXTREMITIES: weak pulse , no edema LOWER EXTREMITIES: weak pulse , no edema NEUROLOGICAL: unresponsive , catchetic, no papinski , pin point pupils Laboratory Results - last 24 hr 08/26/17 08/26/17 08/26/17 12:00 21:15 21:24 WBC RBC Hgb Hct MCV MCH MCHC RDW Plt Count MPV Absolute Neuts (auto) Total Counted Neutrophils % Neutrophils % (Manual) Band Neutrophils % Lymphocytes % Lymphocytes % (Manual) Monocytes % Monocytes % (Manual) Eosinophils % Eosinophils % (Manual) Basophils % Basophils % (Manual) Myelocytes % (Man) Promyelocytes % (Man) Blast Cells % (Manual) Nucleated RBC % Metamyelocytes Differential Comment Hypersegmented Neuts Plasma Cells Smudge Cells Other Cell Type Hypochromia Toxic Granulation Dohle Bodies Platelet Estimate Polychromasia Poikilocytosis Basophilic Stippling Anisocytosis Microcytosis Macrocytosis Spherocytes Siderocytes Sickle Cells Target Cells Tear Drop Cells Ovalocytes Stomatocytes Helmet Cells Hayes-Rhododendron Bodies Sikes Rings Radhika Cells Acanthocytes (Spur) Rouleaux Fragmented RBCs Schistocytes PT with INR INR PTT (Actin FS) Fibrinogen Anticoagulation Therapy Puncture Site ABG pH ABG pCO2 at Pt Temp ABG pO2 at Pt Temp ABG HCO3 ABG O2 Sat (Measured) ABG O2 Content ABG Base Excess Burton Test O2 Delivery Device Oxygen Flow Rate Vent Mode Vent Rate Mechanical Rate PEEP Pressure Support Vent Sodium Potassium Chloride Carbon Dioxide Anion Gap BUN Creatinine Creat Clearance w eGFR POC Glucometer 174.58244 Random Glucose Lactic Acid Calcium Phosphorus Magnesium Total Bilirubin AST ALT Alkaline Phosphatase Creatine Kinase 992 H Creatine Kinase Index 3.3 CK-MB (CK-2) 33.27 H Troponin I 6.91 H* D Total Protein Albumin Random Vancomycin Hep Bs Antigen Negative Hep Bs Antibody Non reactive Hep Bs Antibody, Quant <3.1 L Hep B Core Ab Interpret Negative Hep C Ab Diagnostic 0.2 Liver Fibrosis Interp 08/27/17 08/27/17 08/27/17 05:18 05:55 06:00 WBC 29.4 H RBC 3.43 L Hgb 9.8 L Hct 30.0 L MCV 87.4 MCH 28.5 MCHC 32.6 RDW 15.3 Plt Count 26 L* D MPV 9.1 Absolute Neuts (auto) 27.4 Total Counted Neutrophils % 93.2 H Neutrophils % (Manual) 61.1 Band Neutrophils % 13.0 Lymphocytes % 1.3 L D Lymphocytes % (Manual) 3.7 L D Monocytes % 3.3 L D Monocytes % (Manual) 4 D Eosinophils % 2.1 D Eosinophils % (Manual) 0.0 D Basophils % 0.1 Basophils % (Manual) 0.0 Myelocytes % (Man) 6 H Promyelocytes % (Man) 0 Blast Cells % (Manual) 0 Nucleated RBC % 0 Metamyelocytes 13 H D Differential Comment Hypersegmented Neuts Plasma Cells Smudge Cells Other Cell Type Hypochromia Toxic Granulation Dohle Bodies Platelet Estimate Decreased Polychromasia Poikilocytosis 2+ Basophilic Stippling Anisocytosis Microcytosis Macrocytosis 1+ Spherocytes Siderocytes Sickle Cells Target Cells Tear Drop Cells Ovalocytes Stomatocytes Helmet Cells Hayes-Rhododendron Bodies Sikes Rings Pipestone Cells Acanthocytes (Spur) Rouleaux Fragmented RBCs Schistocytes 1+ PT with INR INR PTT (Actin FS) Fibrinogen Anticoagulation Therapy Puncture Site ABG pH ABG pCO2 at Pt Temp ABG pO2 at Pt Temp ABG HCO3 ABG O2 Sat (Measured) ABG O2 Content ABG Base Excess Burton Test O2 Delivery Device Oxygen Flow Rate Vent Mode Vent Rate Mechanical Rate PEEP Pressure Support Vent Sodium Potassium Chloride Carbon Dioxide Anion Gap BUN Creatinine Creat Clearance w eGFR POC Glucometer 143.55238 Random Glucose Lactic Acid Calcium Phosphorus Magnesium Total Bilirubin AST ALT Alkaline Phosphatase Creatine Kinase Creatine Kinase Index CK-MB (CK-2) Troponin I Total Protein Albumin Random Vancomycin 7.47 Hep Bs Antigen Hep Bs Antibody Hep Bs Antibody, Quant Hep B Core Ab Interpret Hep C Ab Diagnostic Liver Fibrosis Interp 08/27/17 08/27/17 08/27/17 06:00 06:00 06:04 WBC RBC Hgb Hct MCV MCH MCHC RDW Plt Count MPV Absolute Neuts (auto) Total Counted Neutrophils % Neutrophils % (Manual) Band Neutrophils % Lymphocytes % Lymphocytes % (Manual) Monocytes % Monocytes % (Manual) Eosinophils % Eosinophils % (Manual) Basophils % Basophils % (Manual) Myelocytes % (Man) Promyelocytes % (Man) Blast Cells % (Manual) Nucleated RBC % Metamyelocytes Differential Comment Hypersegmented Neuts Plasma Cells Smudge Cells Other Cell Type Hypochromia Toxic Granulation Dohle Bodies Platelet Estimate Polychromasia Poikilocytosis Basophilic Stippling Anisocytosis Microcytosis Macrocytosis Spherocytes Siderocytes Sickle Cells Target Cells Tear Drop Cells Ovalocytes Stomatocytes Helmet Cells Hayes-Rhododendron Bodies Sikes Rings Pipestone Cells Acanthocytes (Spur) Rouleaux Fragmented RBCs Schistocytes PT with INR 21.00 H INR 1.86 H PTT (Actin FS) 41.1 H Fibrinogen Anticoagulation Therapy Puncture Site ABG pH ABG pCO2 at Pt Temp ABG pO2 at Pt Temp ABG HCO3 ABG O2 Sat (Measured) ABG O2 Content ABG Base Excess Burton Test O2 Delivery Device Oxygen Flow Rate Vent Mode Vent Rate Mechanical Rate PEEP Pressure Support Vent Sodium 137 Potassium 3.5 Chloride 99 Carbon Dioxide 17 L Anion Gap 21 H BUN 25 H Creatinine 3.2 H Creat Clearance w eGFR 18.47 POC Glucometer Random Glucose 119 H D Lactic Acid 11.5 H* Calcium 6.9 L* Phosphorus 4.7 Magnesium 1.3 L D Total Bilirubin 4.3 H D AST 1999 H ALT 864 H D Alkaline Phosphatase 143 H D Creatine Kinase 1152 H Creatine Kinase Index 2.6 CK-MB (CK-2) 30.06 H Troponin I 6.63 H* Total Protein 5.4 L Albumin 2.1 L Random Vancomycin Hep Bs Antigen Hep Bs Antibody Hep Bs Antibody, Quant Hep B Core Ab Interpret Hep C Ab Diagnostic Liver Fibrosis Interp 08/27/17 08/27/17 08/27/17 09:45 09:45 09:45 WBC 29.5 H RBC 3.37 L Hgb 9.4 L Hct 29.2 L MCV 86.6 MCH 28.0 MCHC 32.4 RDW 15.7 Plt Count 24 L* MPV 10.3 D Absolute Neuts (auto) 26.6 Total Counted Cancelled Neutrophils % 90.2 H Neutrophils % (Manual) Cancelled Band Neutrophils % Cancelled Lymphocytes % 2.9 L D Lymphocytes % (Manual) Cancelled Monocytes % 3.8 Monocytes % (Manual) Cancelled Eosinophils % 2.9 Eosinophils % (Manual) Cancelled Basophils % 0.2 Basophils % (Manual) Cancelled Myelocytes % (Man) Cancelled Promyelocytes % (Man) Cancelled Blast Cells % (Manual) Cancelled Nucleated RBC % 0 Metamyelocytes Cancelled Differential Comment Cancelled Hypersegmented Neuts Cancelled Plasma Cells Cancelled Smudge Cells Cancelled Other Cell Type Cancelled Hypochromia Cancelled Toxic Granulation Cancelled Dohle Bodies Cancelled Platelet Estimate Polychromasia Cancelled Poikilocytosis Cancelled Basophilic Stippling Cancelled Anisocytosis Cancelled Microcytosis Cancelled Macrocytosis Cancelled Spherocytes Cancelled Siderocytes Cancelled Sickle Cells Cancelled Target Cells Cancelled Tear Drop Cells Cancelled Ovalocytes Cancelled Stomatocytes Cancelled Helmet Cells Cancelled Hayes-Rhododendron Bodies Cancelled Sikes Rings Cancelled Pipestone Cells Cancelled Acanthocytes (Spur) Cancelled Rouleaux Cancelled Fragmented RBCs Cancelled Schistocytes Cancelled PT with INR 23.60 H INR 2.09 H PTT (Actin FS) 44.8 H Fibrinogen 112.0 L Anticoagulation Therapy Puncture Site ABG pH ABG pCO2 at Pt Temp ABG pO2 at Pt Temp ABG HCO3 ABG O2 Sat (Measured) ABG O2 Content ABG Base Excess Burton Test O2 Delivery Device Oxygen Flow Rate Vent Mode Vent Rate Mechanical Rate PEEP Pressure Support Vent Sodium Potassium Chloride Carbon Dioxide Anion Gap BUN Creatinine Creat Clearance w eGFR POC Glucometer Random Glucose Lactic Acid Calcium Phosphorus Magnesium Total Bilirubin AST ALT Alkaline Phosphatase Creatine Kinase Creatine Kinase Index CK-MB (CK-2) Troponin I Total Protein Albumin Random Vancomycin Hep Bs Antigen Hep Bs Antibody Hep Bs Antibody, Quant Hep B Core Ab Interpret Hep C Ab Diagnostic Liver Fibrosis Interp 08/27/17 08/27/17 08/27/17 09:45 16:05 17:33 WBC RBC Hgb Hct MCV MCH MCHC RDW Plt Count MPV Absolute Neuts (auto) Total Counted Neutrophils % Neutrophils % (Manual) Band Neutrophils % Lymphocytes % Lymphocytes % (Manual) Monocytes % Monocytes % (Manual) Eosinophils % Eosinophils % (Manual) Basophils % Basophils % (Manual) Myelocytes % (Man) Promyelocytes % (Man) Blast Cells % (Manual) Nucleated RBC % Metamyelocytes Differential Comment Hypersegmented Neuts Plasma Cells Smudge Cells Other Cell Type Hypochromia Toxic Granulation Dohle Bodies Platelet Estimate Polychromasia Poikilocytosis Basophilic Stippling Anisocytosis Microcytosis Macrocytosis Spherocytes Siderocytes Sickle Cells Target Cells Tear Drop Cells Ovalocytes Stomatocytes Helmet Cells Hayes-Rhododendron Bodies Sikes Rings Radhika Cells Acanthocytes (Spur) Rouleaux Fragmented RBCs Schistocytes PT with INR 22.60 H INR 2.00 H PTT (Actin FS) 42.4 H Fibrinogen 171.0 L D Anticoagulation Therapy No Result Required. Puncture Site Right brachial ABG pH 7.28 L ABG pCO2 at Pt Temp 30.9 L D ABG pO2 at Pt Temp 217.0 H* D ABG HCO3 13.9 L* ABG O2 Sat (Measured) 99.4 H ABG O2 Content 12.2 L ABG Base Excess -11.5 L* Burton Test Positive O2 Delivery Device Mech vent Oxygen Flow Rate 100% Vent Mode No Result Required. Vent Rate 24 Mechanical Rate A/c PEEP 5.0 Pressure Support Vent 500 Sodium 134 L Potassium 3.6 Chloride 97 L Carbon Dioxide 16 L Anion Gap 21 H BUN 26 H Creatinine 3.5 H Creat Clearance w eGFR 16.65 POC Glucometer Random Glucose 137 H Lactic Acid Calcium 6.7 L* Phosphorus Magnesium Total Bilirubin 4.0 H AST 1948 H ALT 896 H Alkaline Phosphatase 138 H Creatine Kinase 1189 H Creatine Kinase Index 2.1 CK-MB (CK-2) 25.70 H Troponin I 5.94 H* Total Protein 5.2 L Albumin 2.0 L Random Vancomycin Hep Bs Antigen Hep Bs Antibody Hep Bs Antibody, Quant Hep B Core Ab Interpret Hep C Ab Diagnostic Liver Fibrosis Interp 08/27/17 08/27/17 08/27/17 18:30 21:45 21:45 WBC 25.3 H RBC 2.85 L Hgb 7.9 L D Hct 24.9 L MCV 87.5 MCH 27.8 MCHC 31.8 L RDW 16.0 H Plt Count 95 L D MPV 8.9 D Absolute Neuts (auto) 22.6 Total Counted 100 Neutrophils % 89.2 H Neutrophils % (Manual) 83.0 H D Band Neutrophils % 10.0 Lymphocytes % 4.4 L D Lymphocytes % (Manual) 6.0 L D Monocytes % 4.1 Monocytes % (Manual) 1 L Eosinophils % 2.1 Eosinophils % (Manual) Basophils % 0.2 Basophils % (Manual) Myelocytes % (Man) Promyelocytes % (Man) Blast Cells % (Manual) Nucleated RBC % 0 Metamyelocytes Differential Comment Hypersegmented Neuts Plasma Cells Smudge Cells Other Cell Type Hypochromia Toxic Granulation Dohle Bodies Platelet Estimate Slt decrease Polychromasia Poikilocytosis Basophilic Stippling Anisocytosis 2+ Microcytosis 2+ Macrocytosis 2+ Spherocytes Siderocytes Sickle Cells Target Cells Tear Drop Cells Ovalocytes 1+ Stomatocytes Helmet Cells Hayes-Rhododendron Bodies Sikes Rings Radhika Cells Acanthocytes (Spur) 1+ Rouleaux Fragmented RBCs Schistocytes PT with INR INR PTT (Actin FS) Fibrinogen Anticoagulation Therapy Puncture Site ABG pH ABG pCO2 at Pt Temp ABG pO2 at Pt Temp ABG HCO3 ABG O2 Sat (Measured) ABG O2 Content ABG Base Excess Burton Test O2 Delivery Device Oxygen Flow Rate Vent Mode Vent Rate Mechanical Rate PEEP Pressure Support Vent Sodium 134 L Potassium 4.1 Chloride 94 L Carbon Dioxide 16 L Anion Gap 24 H BUN 31 H Creatinine 3.9 H Creat Clearance w eGFR 14.70 POC Glucometer Random Glucose 85 D Lactic Acid 13.9 H* Calcium 6.8 L* Phosphorus Magnesium Total Bilirubin 3.4 H AST 1734 H ALT 850 H Alkaline Phosphatase 127 H Creatine Kinase Creatine Kinase Index CK-MB (CK-2) Troponin I Total Protein 5.3 L Albumin 2.1 L Random Vancomycin Hep Bs Antigen Hep Bs Antibody Hep Bs Antibody, Quant Hep B Core Ab Interpret Hep C Ab Diagnostic Liver Fibrosis Interp 08/28/17 08/28/17 08/28/17 00:01 00:01 00:01 WBC 28.4 H RBC 2.75 L Hgb 7.6 L Hct 23.8 L MCV 86.6 MCH 27.6 MCHC 31.9 L RDW 16.0 H Plt Count 63 L D MPV 8.3 Absolute Neuts (auto) 25.6 Total Counted Neutrophils % 90.1 H Neutrophils % (Manual) No Result Required. Band Neutrophils % Lymphocytes % 3.7 L Lymphocytes % (Manual) Monocytes % 4.0 Monocytes % (Manual) Eosinophils % 2.0 Eosinophils % (Manual) Basophils % 0.2 Basophils % (Manual) Myelocytes % (Man) Promyelocytes % (Man) Blast Cells % (Manual) Nucleated RBC % [employer] Inspector Metamyelocytes Differential Comment Hypersegmented Neuts Plasma Cells Smudge Cells Other Cell Type Hypochromia Toxic Granulation Dohle Bodies Platelet Estimate Polychromasia Poikilocytosis Basophilic Stippling Anisocytosis Microcytosis Macrocytosis Spherocytes Siderocytes Sickle Cells Target Cells Tear Drop Cells Ovalocytes Stomatocytes Helmet Cells Hayes-Rhododendron Bodies Sikes Rings Radhika Cells Acanthocytes (Spur) Rouleaux Fragmented RBCs Schistocytes PT with INR 23.90 H INR 2.12 H PTT (Actin FS) Fibrinogen 173.0 L Anticoagulation Therapy Puncture Site ABG pH ABG pCO2 at Pt Temp ABG pO2 at Pt Temp ABG HCO3 ABG O2 Sat (Measured) ABG O2 Content ABG Base Excess Burton Test O2 Delivery Device Oxygen Flow Rate Vent Mode Vent Rate Mechanical Rate PEEP Pressure Support Vent Sodium 134 L Potassium 4.4 Chloride 92 L Carbon Dioxide 15 L Anion Gap 27 H BUN 33 H Creatinine 4.2 H Creat Clearance w eGFR 13.49 POC Glucometer Random Glucose 79 Lactic Acid Calcium 6.5 L* Phosphorus Magnesium Total Bilirubin 3.3 H AST 1534 H ALT 812 H Alkaline Phosphatase 119 H Creatine Kinase Creatine Kinase Index CK-MB (CK-2) Troponin I Total Protein 4.9 L Albumin 1.9 L Random Vancomycin Hep Bs Antigen Hep Bs Antibody Hep Bs Antibody, Quant Hep B Core Ab Interpret Hep C Ab Diagnostic Liver Fibrosis Interp 08/28/17 08/28/17 08/28/17 00:01 05:05 05:23 WBC 31.1 H* RBC 2.74 L Hgb 7.7 L Hct 23.5 L MCV 85.7 MCH 28.1 MCHC 32.9 RDW 15.7 Plt Count 46 L D MPV 9.1 Absolute Neuts (auto) 28.8 Total Counted Neutrophils % 92.7 H Neutrophils % (Manual) Band Neutrophils % Lymphocytes % 2.5 L D Lymphocytes % (Manual) Monocytes % 2.9 L Monocytes % (Manual) Eosinophils % 1.9 Eosinophils % (Manual) Basophils % 0.0 Basophils % (Manual) Myelocytes % (Man) Promyelocytes % (Man) Blast Cells % (Manual) Nucleated RBC % 0 Metamyelocytes Differential Comment Hypersegmented Neuts Plasma Cells Smudge Cells Other Cell Type Hypochromia Toxic Granulation Dohle Bodies Platelet Estimate Polychromasia Poikilocytosis Basophilic Stippling Anisocytosis Microcytosis Macrocytosis Spherocytes Siderocytes Sickle Cells Target Cells Tear Drop Cells Ovalocytes Stomatocytes Helmet Cells Hayes-Rhododendron Bodies Sikes Rings Radhika Cells Acanthocytes (Spur) Rouleaux Fragmented RBCs Schistocytes PT with INR INR PTT (Actin FS) 47.3 H Fibrinogen Anticoagulation Therapy Puncture Site ABG pH ABG pCO2 at Pt Temp ABG pO2 at Pt Temp ABG HCO3 ABG O2 Sat (Measured) ABG O2 Content ABG Base Excess Burton Test O2 Delivery Device Oxygen Flow Rate Vent Mode Vent Rate Mechanical Rate PEEP Pressure Support Vent Sodium Potassium Chloride Carbon Dioxide Anion Gap BUN Creatinine Creat Clearance w eGFR POC Glucometer 83.81237 Random Glucose Lactic Acid Calcium Phosphorus Magnesium Total Bilirubin AST ALT Alkaline Phosphatase Creatine Kinase Creatine Kinase Index CK-MB (CK-2) Troponin I Total Protein Albumin Random Vancomycin Hep Bs Antigen Hep Bs Antibody Hep Bs Antibody, Quant Hep B Core Ab Interpret Hep C Ab Diagnostic Liver Fibrosis Interp Active Medications Generic Name Dose Route Start Last Admin Trade Name Freq PRN Reason Stop Dose Admin Calcium Gluconate 1,000 mg 08/28/17 07:05 Calcium Gluconate 10% - IVPUSH 08/28/17 07:06 ONCE ONE Chlorhexidine Gluconate 1 applic 08/26/17 22:00 08/27/17 22:16 Hibiclens For Decolonization - TP 1 applic HS CHANDLER Administration Hydrocortisone Sodium Succinate 100 mg 08/26/17 15:00 08/28/17 07:05 Solu-Cortef - IVPUSH 100 mg Q8H CHANDLER Administration Norepinephrine Bitartrate 8, 500 mls @ 18.75 mls/hr 08/26/17 09:30 08/27/17 14:41 000 mcg/ Dextrose IV 16 mcg/min TITR CHANDLER 60 mls/hr Administration Protocol 5 MCG/MIN Sodium Bicarbonate 150 meq/ 1,150 mls @ 125 mls/hr 08/26/17 10:00 08/27/17 14 :41 Dextrose IVPB 125 mls/hr ASDIR CHANDLER Administration Meropenem 1 gm/ Dextrose 100 mls @ 200 mls/hr 08/26/17 15:00 08/27/17 22:00 IVPB 200 mls/hr BID CHANDLER Administration Vasopressin 50 units/ Sodium 100 mls @ 4 mls/hr 08/26/17 20:15 08/27/17 21:09 Chloride IVPB 4 units/hr ASDIR CHANDLER 8 mls/hr Administration Protocol 2 UNITS/HR Phenylephrine HCl 20,000 mcg/ 250 mls @ 75 mls/hr 08/27/17 15:15 08/27/17 15: 43 Sodium Chloride IVPB Not Given ASDIR CHANDLER Protocol 100 MCG/MIN Mupirocin 1 applic 08/26/17 22:00 08/27/17 22:16 Bactroban Ointment (For Decolonization) - NS 08/31/17 21:59 1 applic BID CHANDLER Administration Pantoprazole Sodium 40 mg 08/26/17 12:45 08/27/17 09:24 Protonix Iv IVPUSH 40 mg DAILY CHANDLER Administration CBC, BMP 08/28/17 05:05 ASSESSMENT/PLAN: 87 year old male with H/O DM, HLD, BPH , chronic godinez presented to ED after found unresponsive in his bed . In ED pt was found to have sever shock,sever coagulopathy, multiorgan failure and was admitted to be monitored in ICU. #Neurology _AMS * intubated , off sedation , un responsive * [place] pupils * monitor in ICU * Head CT negative for acute pathology #ID -Septic shock due to Gram negative bacilli proteus mirabilis UTI -Lactic acidosis * Becarb drip * Abx per ID Meropenem * repeat CBC with deff, CMP, MG, P, PT,fibrinogen level * trend LA * titrate pressors to maintaine MAP> 65 * IV fluids to keep CVP> 8-12 * transfuse blood products as needed * repeat ABG, CXR Cardiology - Elevated trop likely ACS vs demand ischemia in the setting of presumuptive septic shock and DIC * EKG changes : ST depression in anterolateral leads on admission * Echo W/Doppler maintain LV finction , no WMA , mild MR, AR * cardiac sonographer in ICU * can not give ASA or BB due to septic shock and hematuria * supportive management for now * cardiology on Board DR Bowling recommendations appreciated * daily weight * VItals Q 4hr #Pulmonary - Acute hypoxic hypercapnic respiratory failure respiratory acidosis with metabloic acidosis * ABG , Carboxymethhymoglobin ,Methhemoglobin * intubated * CXR negative for acute pathology * ABG with metabolic acidosis , repeat in AM * O2 to keep O2 sat > 90 % #Hem/onc - sever coagulopathy DIC -Thrombocytopenia * Type and screen * S/P FFP,platelets , PRBCs * transfuse as needed to keep Hgb> 8 * F/U PT, PTT, INR, Fibrinogen level CBC, repeat coag today at 6 pm * Dr Strickland recommendations appreciated added DDAVP * Hydrocortisone sod succinate 100 mg IVpush Q 8hr #Metabolic -Hypokalemia , resolved -Lactic acidosis -Metabolic acidosis * continue IV fluids, empiric AbX, #GI: _ Elevated LFTS likey due to ischemia * worsening today trends LFTS * Continue with supportive therapy IV fluids and pressors * CT abdomen pelvic when stable * hep panel * occult blood * protonix 40 mg iv push daily #Nephro SILVESTRE on CKD likely due to sepsis -BPH - Hematuria * godinez in place * hold Flomax 0.4 mg * monitor I& O , BUN/CR * renal US when stable #Endo - DM on Metfromin 500 at home * hold metformin , ISS, BGM Q4hr #FEN * F: S/p 4 L NS , continue NS @ 100 CC/hr * E: hypokalemia, resolved , monitor BMP * N: NPO for now , NG/OG in place Proph Dvts: SCds B/L GI: Protonix 40 IV daily Dispo * monitor in ICU * DNR * very poor prognosis due to multi organ failure Visit type - Emergency Visit Emergency Visit: Yes ED Registration Date: 08/26/17 Care time: The patient presented to the Emergency Department on the above date and was hospitalized for further evaluation of their emergent condition. - New Patient This patient is new to me today: No - Critical Care Critical Care patient: Yes Total Critical Care Time (in minutes): 45 Critical Care Statement: The care of this patient involved high complexity decision making to prevent further life threatening deterioration of the patient 's condition and/or to evaluate & treat vital organ system(s) failure or risk of failure.
[2017-08-28 07:20] LABS: GLUCOSE,RANDOM 56 mg/dL (74-106)
[2017-08-28 07:21] LABS: CALCIUM 6.8 mg/dL (8.5-10.1)
[2017-08-28] MEDS ORDERED: CALCIUM GLUCONATE 10% - 1,000 MG/10 ML VIAL IVPUSH ONE (08:30)
--- NOTE | 2017-08-28 08:33 | PN ---
Progress Note, Physician History of Present Illness: 87 year old male with pmhx of DM II, BPH, HLD, multiple visits for TIA, CVA who presented to the ED after being found unresponsive by family. Per family, pt was in usual state of health prior to this episode. Upon arrival to the ED pt godinez catheter already in place with femi hematuria. Pt given x2 250 d10 for out of range blood sugar level, BP 96/43- given 4L, with lactic acidosis of 15.9, intubated with central line placement RIJ Following pt noted to have hematochezia, coagulopathy and given 2 units prbc - Current Medication List Current Medications: Active Medications Chlorhexidine Gluconate (Hibiclens For Decolonization -) 1 applic TP HS CHANDLER Last Admin: 08/27/17 22:16 Dose: 1 applic Hydrocortisone Sodium Succinate (Solu-Cortef -) 100 mg IVPUSH Q8H CHANDLER Last Admin: 08/28/17 07:05 Dose: 100 mg Norepinephrine Bitartrate 8, (000 mcg/ Dextrose) 500 mls @ 18.75 mls/hr IV TITR CHANDLER; Protocol Last Admin: 08/27/17 14:41 Dose: 16 mcg/min, 60 mls/hr Sodium Bicarbonate 150 meq/ (Dextrose) 1,150 mls @ 125 mls/hr IVPB ASDIR CHANDLER Last Admin: 08/27/17 14:41 Dose: 125 mls/hr Meropenem 1 gm/ Dextrose 100 mls @ 200 mls/hr IVPB BID CHANDLER Last Admin: 08/27/17 22:00 Dose: 200 mls/hr Vasopressin 50 units/ Sodium (Chloride) 100 mls @ 4 mls/hr IVPB ASDIR CHANDLER; Protocol Last Admin: 08/27/17 21:09 Dose: 4 units/hr, 8 mls/hr Phenylephrine HCl 20,000 mcg/ (Sodium Chloride) 250 mls @ 75 mls/hr IVPB ASDIR CHANDLER; Protocol Last Admin: 08/27/17 15:43 Dose: Not Given Mupirocin (Bactroban Ointment (For Decolonization) -) 1 applic NS BID CHANDLER Stop: 08/31/17 21:59 Last Admin: 08/27/17 22:16 Dose: 1 applic Pantoprazole Sodium (Protonix Iv) 40 mg IVPUSH DAILY CHANDLER Last Admin: 08/27/17 09:24 Dose: 40 mg - Objective Vital Signs: Vital Signs Temperature 100.2 F H 08/28/17 06:00 Pulse Rate 115 H 08/28/17 06:00 Respiratory Rate 27 H 08/28/17 06:44 Blood Pressure 103/44 08/28/17 06:00 O2 Sat by Pulse Oximetry (%) 100 08/26/17 11:25 Cardiovascular: Yes: S1, S2 Respiratory: Yes: Mechanically Ventilated Gastrointestinal: Yes: Normal Bowel Sounds, Soft Labs: CBC, BMP 08/28/17 05:05 08/28/17 05:05 INR, PTT INR 2.12 (0.82-1.09) H 08/28/17 00:01 Fibrinogen 173.0 mg/dL (238-498) L 08/28/17 00:01 Problem List - Problems (1) Septic shock Assessment/Plan: -IV ABX -ID NOTED -IVF AND PRESSERS -FOLLOW LABS -FOLLOW CULTURES Microbiology 08/26/17 07:45 Urine Culture - Preliminary Urine - Urine - Catheterized Lactose Fermenting Neg Bacilli Proteus Species 08/26/17 07:03 Blood Culture - Preliminary Blood - Peripheral Venous Lactose Fermenting Neg Bacilli 08/26/17 07:03 Blood Culture - Preliminary Blood - Peripheral Venous Lactose Fermenting Neg Bacilli Proteus Species Code(s): A41.9 - SEPSIS, UNSPECIFIED ORGANISM; R65.21 - SEVERE SEPSIS WITH SEPTIC SHOCK (2) SILVESTRE (acute kidney injury) Assessment/Plan: -IVF -RENAL CONSULT Code(s): N17.9 - ACUTE KIDNEY FAILURE, UNSPECIFIED (3) Altered mental status Assessment/Plan: -CT OF HEAD NEG - ABOVE Code(s): R41.82 - ALTERED MENTAL STATUS, UNSPECIFIED (4) Anemia Assessment/Plan: -CONSIDER PRBC -FOLLOW LABS Code(s): D64.9 - ANEMIA, UNSPECIFIED Qualifiers: Anemia type: B12 deficiency (5) Elevated liver enzymes Assessment/Plan: -PROBABLY DUE TO HYPOTENSION -FOLLOW TRENDS Code(s): R74.8 - ABNORMAL LEVELS OF OTHER SERUM ENZYMES
[2017-08-28 09:19] LABS: PLATELET ESTIMATE DECREASED
[2017-08-28] MEDS: MEROPENEM 1 GM in DEXTROSE 5%-WATER 100 ML IVPB SCH (10:02)
[2017-08-28] MEDS: NOREPINEPHRINE BITARTRATE 8,000 MCG in DEXTROSE 5%-WATER - 492 ML IV SCH (10:06)
[2017-08-28] MEDS: PANTOPRAZOLE SODIUM 40 MG VIAL IVPUSH SCH (10:06)
[2017-08-28] MEDS: MUPIROCIN 2% TOPICAL OINTMENT FOR DECOLONIZATION NS SCH (10:13)
[2017-08-28] MEDS: SODIUM BICARBONATE 8.4% - 150 MEQ in DEXTROSE 5%-WATER - 1,000 ML IVPB SCH (10:14)
--- NOTE | 2017-08-28 10:27 | PN ---
Teaching Attending Note Name of Resident: Odell Iverson ATTENDING PHYSICIAN STATEMENT I saw and evaluated the patient. I reviewed the resident's note and discussed the case with the resident. I agree with the resident's findings and plan as documented. SUBJECTIVE: Patient seen and examined in the ICU. Remains intubated, poorly responsive off sedation. Remains on levophed and vasopressin drips for hemodynamic support. Oozing grossly appears better today. OBJECTIVE: Intake & Output 08/25/17 08/26/17 08/27/17 08/28/17 23:59 23:59 23:59 23:59 Intake Total 3977 3384 1950 Output Total 100 35 0 Balance 3877 3349 1950 Weight 221 lb 8 oz 232 lb 11.2 oz Last Vital Signs Temp Pulse Resp BP Pulse Ox 100.8 F H 111 H 27 H 107/42 100 08/28/17 08:00 08/28/17 08:00 08/28/17 09:00 08/28/17 08:00 08/26/17 11:25 Active Medications Chlorhexidine Gluconate (Hibiclens For Decolonization -) 1 applic TP HS CHANDLER Last Admin: 08/27/17 22:16 Dose: 1 applic Hydrocortisone Sodium Succinate (Solu-Cortef -) 100 mg IVPUSH Q8H CHANDLER Last Admin: 08/28/17 07:05 Dose: 100 mg Norepinephrine Bitartrate 8, (000 mcg/ Dextrose) 500 mls @ 18.75 mls/hr IV TITR CHANDLER; Protocol Last Admin: 08/28/17 10:06 Dose: 16 mcg/min, 60 mls/hr Sodium Bicarbonate 150 meq/ (Dextrose) 1,150 mls @ 125 mls/hr IVPB ASDIR CHANDLER Last Admin: 08/28/17 10:14 Dose: 125 mls/hr Meropenem 1 gm/ Dextrose 100 mls @ 200 mls/hr IVPB BID CHANDLER Last Admin: 08/28/17 10:02 Dose: 200 mls/hr Vasopressin 50 units/ Sodium (Chloride) 100 mls @ 4 mls/hr IVPB ASDIR CHANDLER; Protocol Last Admin: 08/27/17 21:09 Dose: 4 units/hr, 8 mls/hr Phenylephrine HCl 20,000 mcg/ (Sodium Chloride) 250 mls @ 75 mls/hr IVPB ASDIR CHANDLER; Protocol Last Admin: 08/27/17 15:43 Dose: Not Given Mupirocin (Bactroban Ointment (For Decolonization) -) 1 applic NS BID CHANDLER Stop: 08/31/17 21:59 Last Admin: 08/28/17 10:13 Dose: 1 applic Pantoprazole Sodium (Protonix Iv) 40 mg IVPUSH DAILY CHANDLER Last Admin: 08/28/17 10:06 Dose: 40 mg Gen: intubated, poorly responsive Heart: tachycardic, regular Lung: scattered rhonchi Abd: soft, nontender Ext: trace edema, cool Laboratory Results - last 24 hr 08/26/17 08/27/17 08/27/17 12:00 05:55 09:45 WBC RBC Hgb Hct MCV MCH MCHC RDW Plt Count MPV Absolute Neuts (auto) Total Counted Neutrophils % Neutrophils % (Manual) 61.1 Band Neutrophils % 13.0 Lymphocytes % Lymphocytes % (Manual) 3.7 L D Monocytes % Monocytes % (Manual) 4 D Eosinophils % Eosinophils % (Manual) 0.0 D Basophils % Basophils % (Manual) 0.0 Myelocytes % (Man) 6 H Promyelocytes % (Man) 0 Blast Cells % (Manual) 0 Nucleated RBC % Metamyelocytes 13 H D Differential Comment Hypersegmented Neuts Plasma Cells Smudge Cells Other Cell Type Hypochromia Toxic Granulation Dohle Bodies Platelet Estimate Decreased Polychromasia Poikilocytosis 2+ Basophilic Stippling Anisocytosis Microcytosis Macrocytosis 1+ Spherocytes Siderocytes Sickle Cells Target Cells Tear Drop Cells Ovalocytes Stomatocytes Helmet Cells Hayes-Newell Bodies [place] Rings Radhika Cells Acanthocytes (Spur) Rouleaux Fragmented RBCs Schistocytes 1+ PT with INR 23.60 H INR 2.09 H PTT (Actin FS) 44.8 H Fibrinogen Anticoagulation Therapy Puncture Site ABG pH ABG pCO2 at Pt Temp ABG pO2 at Pt Temp ABG HCO3 ABG O2 Sat (Measured) ABG O2 Content ABG Base Excess Burton Test O2 Delivery Device Oxygen Flow Rate Vent Mode Vent Rate Mechanical Rate PEEP Pressure Support Vent Sodium Potassium Chloride Carbon Dioxide Anion Gap BUN Creatinine Creat Clearance w eGFR POC Glucometer Random Glucose Lactic Acid Calcium Phosphorus Magnesium Total Bilirubin AST ALT Alkaline Phosphatase Creatine Kinase Creatine Kinase Index CK-MB (CK-2) Troponin I Total Protein Albumin Hep Bs Antigen Negative Hep Bs Antibody Non reactive Hep Bs Antibody, Quant <3.1 L Hep B Core Ab Interpret Negative Hep C Ab Diagnostic 0.2 Liver Fibrosis Interp 08/27/17 08/27/17 08/27/17 09:45 09:45 09:45 WBC 29.5 H RBC 3.37 L Hgb 9.4 L Hct 29.2 L MCV 86.6 MCH 28.0 MCHC 32.4 RDW 15.7 Plt Count 24 L* MPV 10.3 D Absolute Neuts (auto) 26.6 Total Counted Cancelled Neutrophils % 90.2 H Neutrophils % (Manual) Cancelled Band Neutrophils % Cancelled Lymphocytes % 2.9 L D Lymphocytes % (Manual) Cancelled Monocytes % 3.8 Monocytes % (Manual) Cancelled Eosinophils % 2.9 Eosinophils % (Manual) Cancelled Basophils % 0.2 Basophils % (Manual) Cancelled Myelocytes % (Man) Cancelled Promyelocytes % (Man) Cancelled Blast Cells % (Manual) Cancelled Nucleated RBC % 0 Metamyelocytes Cancelled Differential Comment Cancelled Hypersegmented Neuts Cancelled Plasma Cells Cancelled Smudge Cells Cancelled Other Cell Type Cancelled Hypochromia Cancelled Toxic Granulation Cancelled Dohle Bodies Cancelled Platelet Estimate Polychromasia Cancelled Poikilocytosis Cancelled Basophilic Stippling Cancelled Anisocytosis Cancelled Microcytosis Cancelled Macrocytosis Cancelled Spherocytes Cancelled Siderocytes Cancelled Sickle Cells Cancelled Target Cells Cancelled Tear Drop Cells Cancelled Ovalocytes Cancelled Stomatocytes Cancelled Helmet Cells Cancelled Hayes-Newell Bodies Cancelled [place] Rings Cancelled Radhika Cells Cancelled Acanthocytes (Spur) Cancelled Rouleaux Cancelled Fragmented RBCs Cancelled Schistocytes Cancelled PT with INR INR PTT (Actin FS) Fibrinogen 112.0 L Anticoagulation Therapy Puncture Site ABG pH ABG pCO2 at Pt Temp ABG pO2 at Pt Temp ABG HCO3 ABG O2 Sat (Measured) ABG O2 Content ABG Base Excess Burton Test O2 Delivery Device Oxygen Flow Rate Vent Mode Vent Rate Mechanical Rate PEEP Pressure Support Vent Sodium 134 L Potassium 3.6 Chloride 97 L Carbon Dioxide 16 L Anion Gap 21 H BUN 26 H Creatinine 3.5 H Creat Clearance w eGFR 16.65 POC Glucometer Random Glucose 137 H Lactic Acid Calcium 6.7 L* Phosphorus Magnesium Total Bilirubin 4.0 H AST 1948 H ALT 896 H Alkaline Phosphatase 138 H Creatine Kinase 1189 H Creatine Kinase Index 2.1 CK-MB (CK-2) 25.70 H Troponin I 5.94 H* Total Protein 5.2 L Albumin 2.0 L Hep Bs Antigen Hep Bs Antibody Hep Bs Antibody, Quant Hep B Core Ab Interpret Hep C Ab Diagnostic Liver Fibrosis Interp 08/27/17 08/27/17 08/27/17 16:05 17:33 18:30 WBC RBC Hgb Hct MCV MCH MCHC RDW Plt Count MPV Absolute Neuts (auto) Total Counted Neutrophils % Neutrophils % (Manual) Band Neutrophils % Lymphocytes % Lymphocytes % (Manual) Monocytes % Monocytes % (Manual) Eosinophils % Eosinophils % (Manual) Basophils % Basophils % (Manual) Myelocytes % (Man) Promyelocytes % (Man) Blast Cells % (Manual) Nucleated RBC % Metamyelocytes Differential Comment Hypersegmented Neuts Plasma Cells Smudge Cells Other Cell Type Hypochromia Toxic Granulation Dohle Bodies Platelet Estimate Polychromasia Poikilocytosis Basophilic Stippling Anisocytosis Microcytosis Macrocytosis Spherocytes Siderocytes Sickle Cells Target Cells Tear Drop Cells Ovalocytes Stomatocytes Helmet Cells Hayes-Newell Bodies [place] Rings [place] Cells Acanthocytes (Spur) Rouleaux Fragmented RBCs Schistocytes PT with INR 22.60 H INR 2.00 H PTT (Actin FS) 42.4 H Fibrinogen 171.0 L D Anticoagulation Therapy No Result Required. Puncture Site Right brachial ABG pH 7.28 L ABG pCO2 at Pt Temp 30.9 L D ABG pO2 at Pt Temp 217.0 H* D ABG HCO3 13.9 L* ABG O2 Sat (Measured) 99.4 H ABG O2 Content 12.2 L ABG Base Excess -11.5 L* Burton Test Positive O2 Delivery Device Mech vent Oxygen Flow Rate 100% Vent Mode No Result Required. Vent Rate 24 Mechanical Rate A/c PEEP 5.0 Pressure Support Vent 500 Sodium Potassium Chloride Carbon Dioxide Anion Gap BUN Creatinine Creat Clearance w eGFR POC Glucometer Random Glucose Lactic Acid 13.9 H* Calcium Phosphorus Magnesium Total Bilirubin AST ALT Alkaline Phosphatase Creatine Kinase Creatine Kinase Index CK-MB (CK-2) Troponin I Total Protein Albumin Hep Bs Antigen Hep Bs Antibody Hep Bs Antibody, Quant Hep B Core Ab Interpret Hep C Ab Diagnostic Liver Fibrosis Interp 08/27/17 08/27/1708/28/18 21:45 21:45 00:01 WBC 25.3 H 28.4 H RBC 2.85 L 2.75 L Hgb 7.9 L D 7.6 L Hct 24.9 L 23.8 L MCV 87.5 86.6 MCH 27.8 27.6 MCHC 31.8 L 31.9 L RDW 16.0 H 16.0 H Plt Count 95 L D 63 L D MPV 8.9 D 8.3 Absolute Neuts (auto) 22.6 25.6 Total Counted 100 Neutrophils % 89.2 H 90.1 H Neutrophils % (Manual) 83.0 H D No Result Required. Band Neutrophils % 10.0 Lymphocytes % 4.4 L D 3.7 L Lymphocytes % (Manual) 6.0 L D Monocytes % 4.1 4.0 Monocytes % (Manual) 1 L Eosinophils % 2.1 2.0 Eosinophils % (Manual) Basophils % 0.2 0.2 Basophils % (Manual) Myelocytes % (Man) Promyelocytes % (Man) Blast Cells % (Manual) Nucleated RBC % 0 Private Security Guard Metamyelocytes Differential Comment Hypersegmented Neuts Plasma Cells Smudge Cells Other Cell Type Hypochromia Toxic Granulation Dohle Bodies Platelet Estimate Slt decrease Polychromasia Poikilocytosis Basophilic Stippling Anisocytosis 2+ Microcytosis 2+ Macrocytosis 2+ Spherocytes Siderocytes Sickle Cells Target Cells Tear Drop Cells Ovalocytes 1+ Stomatocytes Helmet Cells Hayes-Newell Bodies [place] Rings [place] Cells Acanthocytes (Spur) 1+ Rouleaux Fragmented RBCs Schistocytes PT with INR INR PTT (Actin FS) Fibrinogen Anticoagulation Therapy Puncture Site ABG pH ABG pCO2 at Pt Temp ABG pO2 at Pt Temp ABG HCO3 ABG O2 Sat (Measured) ABG O2 Content ABG Base Excess Burton Test O2 Delivery Device Oxygen Flow Rate Vent Mode Vent Rate Mechanical Rate PEEP Pressure Support Vent Sodium 134 L Potassium 4.1 Chloride 94 L Carbon Dioxide 16 L Anion Gap 24 H BUN 31 H Creatinine 3.9 H Creat Clearance w eGFR 14.70 POC Glucometer Random Glucose 85 D Lactic Acid Calcium 6.8 L* Phosphorus Magnesium Total Bilirubin 3.4 H AST 1734 H ALT 850 H Alkaline Phosphatase 127 H Creatine Kinase Creatine Kinase Index CK-MB (CK-2) Troponin I Total Protein 5.3 L Albumin 2.1 L Hep Bs Antigen Hep Bs Antibody Hep Bs Antibody, Quant Hep B Core Ab Interpret Hep C Ab Diagnostic Liver Fibrosis Interp 08/28/17 08/28/17 08/28/17 00:01 00:01 00:01 WBC RBC Hgb Hct MCV MCH MCHC RDW Plt Count MPV Absolute Neuts (auto) Total Counted Neutrophils % Neutrophils % (Manual) Band Neutrophils % Lymphocytes % Lymphocytes % (Manual) Monocytes % Monocytes % (Manual) Eosinophils % Eosinophils % (Manual) Basophils % Basophils % (Manual) Myelocytes % (Man) Promyelocytes % (Man) Blast Cells % (Manual) Nucleated RBC % Metamyelocytes Differential Comment Hypersegmented Neuts Plasma Cells Smudge Cells Other Cell Type Hypochromia Toxic Granulation Dohle Bodies Platelet Estimate Polychromasia Poikilocytosis Basophilic Stippling Anisocytosis Microcytosis Macrocytosis Spherocytes Siderocytes Sickle Cells Target Cells Tear Drop Cells Ovalocytes Stomatocytes Helmet Cells Hayes-Newell Bodies [place] Rings [place] Cells Acanthocytes (Spur) Rouleaux Fragmented RBCs Schistocytes PT with INR 23.90 H INR 2.12 H PTT (Actin FS) 47.3 H Fibrinogen 173.0 L Anticoagulation Therapy Puncture Site ABG pH ABG pCO2 at Pt Temp ABG pO2 at Pt Temp ABG HCO3 ABG O2 Sat (Measured) ABG O2 Content ABG Base Excess Burton Test O2 Delivery Device Oxygen Flow Rate Vent Mode Vent Rate Mechanical Rate PEEP Pressure Support Vent Sodium 134 L Potassium 4.4 Chloride 92 L Carbon Dioxide 15 L Anion Gap 27 H BUN 33 H Creatinine 4.2 H Creat Clearance w eGFR 13.49 POC Glucometer Random Glucose 79 Lactic Acid Calcium 6.5 L* Phosphorus Magnesium Total Bilirubin 3.3 H AST 1534 H ALT 812 H Alkaline Phosphatase 119 H Creatine Kinase Creatine Kinase Index CK-MB (CK-2) Troponin I Total Protein 4.9 L Albumin 1.9 L Hep Bs Antigen Hep Bs Antibody Hep Bs Antibody, Quant Hep B Core Ab Interpret Hep C Ab Diagnostic Liver Fibrosis Interp 08/28/17 08/28/17 08/28/17 05:05 05:05 05:23 WBC 31.1 H* RBC 2.74 L Hgb 7.7 L Hct 23.5 L MCV 85.7 MCH 28.1 MCHC 32.9 RDW 15.7 Plt Count 46 L D MPV 9.1 Absolute Neuts (auto) 28.8 Total Counted Neutrophils % 92.7 H Neutrophils % (Manual) 72.0 Band Neutrophils % 14.0 Lymphocytes % 2.5 L D Lymphocytes % (Manual) 4.0 L D Monocytes % 2.9 L Monocytes % (Manual) 2 L D Eosinophils % 1.9 Eosinophils % (Manual) 0.0 Basophils % 0.0 Basophils % (Manual) 0.0 Myelocytes % (Man) 2 D Promyelocytes % (Man) 0 Blast Cells % (Manual) 0 Nucleated RBC % 3 H Metamyelocytes 6 H D Differential Comment Hypersegmented Neuts Plasma Cells Smudge Cells Other Cell Type Hypochromia Toxic Granulation Dohle Bodies Platelet Estimate Decreased Polychromasia Poikilocytosis Basophilic Stippling Anisocytosis Microcytosis Macrocytosis Spherocytes Siderocytes Sickle Cells Target Cells Tear Drop Cells Ovalocytes Stomatocytes Helmet Cells Hayes-Newell Bodies [place] Rings [place] Cells Acanthocytes (Spur) Rouleaux Fragmented RBCs Schistocytes 1+ PT with INR INR PTT (Actin FS) Fibrinogen Anticoagulation Therapy Puncture Site ABG pH ABG pCO2 at Pt Temp ABG pO2 at Pt Temp ABG HCO3 ABG O2 Sat (Measured) ABG O2 Content ABG Base Excess Burton Test O2 Delivery Device Oxygen Flow Rate Vent Mode Vent Rate Mechanical Rate PEEP Pressure Support Vent Sodium 130 L Potassium 4.7 Chloride 88 L Carbon Dioxide 16 L Anion Gap 26 H BUN 35 H Creatinine 4.3 H Creat Clearance w eGFR 13.13 POC Glucometer 83.15705 Random Glucose 56 L D Lactic Acid Calcium 6.8 L* Phosphorus 6.7 H D Magnesium 1.6 L D Total Bilirubin 3.5 H AST 1497 H ALT 786 H Alkaline Phosphatase 120 H Creatine Kinase Creatine Kinase Index CK-MB (CK-2) Troponin I Total Protein 4.9 L Albumin 1.9 L Hep Bs Antigen Hep Bs Antibody Hep Bs Antibody, Quant Hep B Core Ab Interpret Hep C Ab Diagnostic Liver Fibrosis Interp 08/28/17 09:00 WBC RBC Hgb Hct MCV MCH MCHC RDW Plt Count MPV Absolute Neuts (auto) Total Counted Neutrophils % Neutrophils % (Manual) Band Neutrophils % Lymphocytes % Lymphocytes % (Manual) Monocytes % Monocytes % (Manual) Eosinophils % Eosinophils % (Manual) Basophils % Basophils % (Manual) Myelocytes % (Man) Promyelocytes % (Man) Blast Cells % (Manual) Nucleated RBC % Metamyelocytes Differential Comment Hypersegmented Neuts Plasma Cells Smudge Cells Other Cell Type Hypochromia Toxic Granulation Dohle Bodies Platelet Estimate Polychromasia Poikilocytosis Basophilic Stippling Anisocytosis Microcytosis Macrocytosis Spherocytes Siderocytes Sickle Cells Target Cells Tear Drop Cells Ovalocytes Stomatocytes Helmet Cells Hayes-Newell Bodies [place] Rings [place] Cells Acanthocytes (Spur) Rouleaux Fragmented RBCs Schistocytes PT with INR INR PTT (Actin FS) Fibrinogen Anticoagulation Therapy Puncture Site ABG pH ABG pCO2 at Pt Temp ABG pO2 at Pt Temp ABG HCO3 ABG O2 Sat (Measured) ABG O2 Content ABG Base Excess Burton Test O2 Delivery Device Oxygen Flow Rate Vent Mode Vent Rate Mechanical Rate PEEP Pressure Support Vent Sodium Potassium Chloride Carbon Dioxide Anion Gap BUN Creatinine Creat Clearance w eGFR POC Glucometer Random Glucose Lactic Acid Calcium Phosphorus Magnesium Total Bilirubin AST ALT Alkaline Phosphatase Creatine Kinase Creatine Kinase Index CK-MB (CK-2) Troponin I 4.61 H* Total Protein Albumin Hep Bs Antigen Hep Bs Antibody Hep Bs Antibody, Quant Hep B Core Ab Interpret Hep C Ab Diagnostic Liver Fibrosis Interp ASSESSMENT AND PLAN: Acute Respiratory Failure Altered Mental Status UTI/Gram Negative Bacteremia Septic Shock Multiorgan Failure DIC Thrombocytopenia Acute Kidney Injury Elevated LFTs likely ischemic injury +Troponins - r/o NSTEMI Metabolic Acidosis - continue antibiotics - IVF to CVP 8-12 - titrate pressors to maintain MAP: 65 to 75 - monitor urine output, creatinine - monitor coags, CBC, fibrinogen level - transfuse FFPs, platelets, cryoprecipitate as needed - replete lytes - monitor ABG - ECHO - trend lactate - Will need CT A/P to r/o infectious etiology when stable for transport - Overall outcome appears poor: Need family discussions for GOC - continue ICU monitoring Dr Diop Critical care time spent in reviewing chart, evaluating plan and formulating plan 35 min
--- NOTE | 2017-08-28 11:06 | CON.NEP ---
Consult Consult Specialty:: nephrology Referred by:: dr choe Reason for Consultation:: kidney failure - History of Present Illness Chief Complaint: kidney failure, urosepsis History of Present Illness: patient was admitted to icu with hypotension, urosepsis, kidney failure, and metabolic acidosis - History Source History Provided By: Medical Record, Transfer Record Limitations to Obtaining History: Clinical Condition - Past Medical History ROUGH PATCHER: Yes: Alzheimer's, Dementia, TIA Cardio/Vascular: Yes: HTN, Hyperlipdemia Endocrine: Yes: Diabetes Mellitus - Past Surgical History Past Surgical History: Yes: Joint Replacement (L THR) - Alcohol/Substance Use Hx Alcohol Use: No - Smoking History Smoking history: Never smoked Have you smoked in the past 12 months: No - Social History 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 Home Medications - Allergies Allergies/Adverse Reactions: Allergies Allergy/AdvReac Type Severity Reaction Status Date / Time No Known Allergies Allergy Verified 08/26/17 06:51 - Home Medications Home Medications: Ambulatory Orders metFORMIN HCL [Glucophage -] 500 mg PO DAILY 01/02/15 Atorvastatin Ca [Lipitor] 10 mg PO HS #30 tablet 01/03/15 Cyanocobalamin [Vitamin B12 -] 1,000 mcg PO DAILY #30 tablet 01/03/15 Unobtainable 04/09/17 Atorvastatin Ca [Lipitor] 10 mg PO HS #30 tablet 04/22/17 Polyethylene Glycol 3350 [Miralax 119 gm Btl -] 17 gm PO DAILY 30 Days #1 bottle 04/22/17 Tamsulosin HCl [Flomax -] 0.4 mg PO DAILY@0830 #30 cap.er.24h 04/22/17 Family Disease History - Family Disease History Family Disease History: Other: Brother (asthma) Nephrology Consult - Height Height: 6 ft 9 in - Weight Weight: 232 lb 11.2 oz - BMI Body Mass Index (BMI): 24.9 - Lab Results CBC,BMP: CBC, BMP 08/28/17 05:05 08/28/17 05:05 Anion Gap: Anion Gap Anion Gap 26 (8-16) H 08/28/17 05:05 - Physical Examination Vital Signs: Vital Signs Temperature 100.8 F H 08/28/17 08:00 Pulse Rate 111 H 08/28/17 08:00 Respiratory Rate 26 H 08/28/17 10:00 Blood Pressure 107/42 08/28/17 08:00 O2 Sat by Pulse Oximetry (%) 100 08/26/17 11:25 Constitutional: Yes: Well Nourished, No Distress, Calm HENT: Yes: WNL, Atraumatic, Normocephalic Neck: Yes: WNL, Supple, Trachea Midline Cardiovascular: Yes: WNL, Regular Rate and Rhythm Respiratory: Yes: Rhonchi Gastrointestinal: Yes: WNL, Normal Bowel Sounds Musculoskeletal: Yes: WNL Extremities: Yes: WNL Edema: No Peripheral Pulses WNL: Yes Neurological: Yes: Unresponsive Assessment/Plan urosepsis mal[place]- oliguria metabolic and lactic acidosisresp failure on pressors, vasopressin, fluids and bicarb drip CBC, BMP 08/28/17 05:05 08/28/17 05:05 Plan- continue supportive care monitor urine output monitor renal function
--- NOTE | 2017-08-28 15:33 | PN ---
Progress Note (short form) - Note Progress Note: Patient seen and examined Intubated and not responsive On antibiotics, pressors with progression of liver disease, renal disease, ongoing coagulopathy , vasoconstriction peripherally. No definite pupillary response by my exam. Spoke with daughter and sister-in law about the impending demise. Family prepared.
[2017-08-28 16:10] VITALS: BP 100/44; PULSE 108; TEMP 98.1
[2017-08-28] MEDS ORDERED: MORPHINE 100 MG in SODIUM CHLORIDE 98 ML IVPB SCH (16:30)
--- NOTE | 2017-08-28 16:30 | PN ---
Progress Note (short form) - Note Progress Note: Discussed with family at bedside about pt's worsening condition. and family are deferring to daughter(Leigh) to be primary decision maker and to sign forms. Family in agreement that comfort will be the primary focus; no further blood draws, medications, pressors or blood products to be given. pt to remain intubated at this time. Morphine drip initiated. Informed PCP, SYSTEMS SOFTWARE ENGINEER Dipan covering, aware of plan. pt asystole on monitor at 6:19pm. On exam the patient did not respond to verbal or physical stimuli. Absent heart sounds, no spontaneous breaths on vent. absent corneal reflexes, fixed and dilated pupils; nonreactive to light. Absent peripheral pulses. Family at bedside.
[2017-08-28 21:59] VITALS: BMI 24.9
== END 2017-08-28 16:19 | disposition expired | DRG 871 ==
LOC: JER 06:30 → JERBED 10:01 → JICU 13:32
PROVIDERS: ADMIT Internal Medicine; ATTEND Family Medicine
PROC: 05HM33Z Insertion of Infusion Device into Right Internal Jugular Vein, Percutaneous Approach (ICD-10-PCS; principal; 2017-08-26)
PROC: 0CHY7BZ Insertion of Airway into Mouth and Throat, Via Natural or Artificial Opening (ICD-10-PCS; 2017-08-26)
PROC: 5A1945Z Respiratory Ventilation, 24-96 Consecutive Hours (ICD-10-PCS; 2017-08-26)
PROC: 30233K1 Transfusion of Nonautologous Frozen Plasma into Peripheral Vein, Percutaneous Approach (ICD-10-PCS; 2017-08-26)
PROC: 30233N1 Transfusion of Nonautologous Red Blood Cells into Peripheral Vein, Percutaneous Approach (ICD-10-PCS; 2017-08-26)
PROC: 30233R1 Transfusion of Nonautologous Platelets into Peripheral Vein, Percutaneous Approach (ICD-10-PCS; 2017-08-26)
DX: A41.89 Other specified sepsis (principal); R65.21 Severe sepsis with septic shock; J96.01 Acute respiratory failure with hypoxia; J96.02 Acute respiratory failure with hypercapnia; D65 Disseminated intravascular coagulation [defibrination syndrome]; E87.2 Acidosis; N17.9 Acute kidney failure, unspecified; K92.1 Melena; I24.8 Other forms of acute ischemic heart disease; N39.0 Urinary tract infection, site not specified; N40.0 Benign prostatic hyperplasia without lower urinary tract symptoms; E78.00 Pure hypercholesterolemia, unspecified; G30.9 Alzheimer's disease, unspecified; F02.80 Dementia in other diseases classified elsewhere, unspecified severity, without behavioral disturbance, psychotic disturbance, mood disturbance, and anxiety; R31.0 Gross hematuria; R74.8 Abnormal levels of other serum enzymes; D69.6 Thrombocytopenia, unspecified; E11.65 Type 2 diabetes mellitus with hyperglycemia; E87.6 Hypokalemia; R68.0 Hypothermia, not associated with low environmental temperature; I95.9 Hypotension, unspecified; R00.0 Tachycardia, unspecified; I12.9 Hypertensive chronic kidney disease with stage 1 through stage 4 chronic kidney disease, or unspecified chronic kidney disease; E11.22 Type 2 diabetes mellitus with diabetic chronic kidney disease; N18.9 Chronic kidney disease, unspecified; B96.20 Unspecified Escherichia coli [E. coli] as the cause of diseases classified elsewhere; Z96.642 Presence of left artificial hip joint; Z86.73 Personal history of transient ischemic attack (TIA), and cerebral infarction without residual deficits
CPT/HCPCS: 36415; 36430; 36511; 36600; 70450-TC; 71045-TC-FY; 71046-TC-FY; 76700-TC; 80048; 80053; 81003; 81015; 82009; 82550; 82553; 82803; 82962; 83036; 83605; 83735; 83880; 84100; 84484; 85025; 85362; 85384; 85610; 85730; 86704; 86850; 86900; 86901; 86922; 87040; 87086; 87186; 87340; 87389; 93005; 93010; 93306-TC; 99285-25; G0480; J0131; J2597; J7030; P9012; P9017; P9034; P9038; P9058